=== PATIENT | female | born 1930 | race Two or more races ===

== ENCOUNTER 2017-01-24 17:37 | Inpatient (IN) | payer MEDICARE, BC ==
[2017-01-24] MEDS ORDERED: SODIUM CHLORIDE 0.9% 500 ML IV ONE (19:02)
--- NOTE | 2017-01-24 19:15 | ED ---
General Adult HPI <CristobalViraj - Last Filed: 01/24/17 22:14> - General Source: patient, family Mode of arrival: wheelchair Limitations: no limitations <Shakeel Red - Last Filed: 01/24/17 22:33> - General Chief complaint: Urogenital Stated complaint: UTI, Fever Time Seen by Provider: 01/24/17 18:48 - History of Present Illness Initial comments: 86-year-old female patient presents to emergency department today for increased confusion, weakness, slurred speech, and fever. She was diagnosed with a urinary tract infection on Sunday and started on Macrobid for her urine culture obtained on Sunday. Yesterday patient started having increased confusion, became more weak. Today when her son came home she had chills and a low-grade fever. He has had numerous urinary tract infections in the past and has been treated by infectious disease and a urologist in [place] Dr. Trey Coats. Son states that last infection was in October and patient had been treated with IV Invanz due to resistance. Patient complains of burning with urination, and abdominal pain when she urinates. Patient is alert, and oriented 1 only at this time. Patient does follow simple commands. She does answer questions, but speech is slow. Denies any chest pain, shortness of breath, dizziness, nausea, or vomiting. Denies any back pain, diarrhea, constipation, dark, bloody , or black stools. Patient's son states that she is generally alert and oriented 2, he states that she doesn't usually know the date or time, is unable to manage finances and other consulting nurse. He states her speech is generally slow, but is worse today. (Shakeel Red) - Related Data Home Medications Medication Instructions Recorded Confirmed Acetaminophen-Codeine 300-30mg 1 tab PO DAILY PRN 08/08/16 01/24/17 [Tylenol w/codeine #3] amLODIPine [Norvasc] 2.5 mg PO HS 10/08/16 01/24/17 Nitrofurantoin Monohyd/M-Cryst 100 mg PO Q12HR 01/24/17 01/24/17 [Macrobid] Previous Rx's Medication Instructions Recorded Carbidopa-Levodopa 25-100 mg 1 tab PO TID #60 tab 10/08/16 [Sinemet 25-100 mg] Allergies Allergy/AdvReac Type Severity Reaction Status Date / Time No Known Allergies Allergy Verified 01/24/17 19:31 Review of Systems ROS Other: All systems not noted in ROS Statement are negative. <Viraj Cristobal - Last Filed: 01/24/17 22:14> ROS Other: All systems not noted in ROS Statement are negative. <Shakeel Red - Last Filed: 01/24/17 22:33> ROS Statement: Those systems with pertinent positive or pertinent negative responses have been documented in the HPI. Past Medical History Past Medical History: Hypertension, Musculoskeletal Disorder, Neurologic Disorder, Osteoarthritis (OA) Additional Past Medical History / Comment(s): 06/2016 Fall with R humerous and pelvic fracture-no surgical intervention, PARKINSONS, constipation. History of Any Multi-Drug Resistant Organisms: ESBL Date of last positivie culture/infection: 10/12/16 MDRO Source:: ESBL URINE E.COLI Past Surgical History: Tonsillectomy Additional Past Surgical History / Comment(s): hip surgery (nail put in) HIP FRACTURE, PELVIS FRACTURE Past Anesthesia/Blood Transfusion Reactions: No Reported Reaction Additional Past Anesthesia/Blood Transfusion Reaction / Comment(s): Pt's only surgery was a tonsillectomy-no anesthesia was used. Past Psychological History: No Psychological Hx Reported Additional Psychological History / Comment(s): Pt's adult son resides with her. He assists her with many things. She ambulates with a walker. She has a couple of women that she hired to assist her with bathing. Her son takes her to appts. Smoking Status: Never smoker Past Alcohol Use History: None Reported Past Drug Use History: None Reported - Past Family History Father History Unknown: Yes Additional Family Medical History / Comment(s): Father in his 60's. Mother Family Medical History: Cancer Additional Family Medical History / Comment(s): Mother had breast cancer. She at the age of 79yrs. <Shakeel Red - Last Filed: 01/24/17 22:33> General Exam Limitations: no limitations, altered mental status (Did 1 only, speech is slowed) General appearance: alert, in no apparent distress Head exam: Present: atraumatic, normocephalic, normal inspection Eye exam: Present: normal appearance, PERRL, EOMI. Absent: scleral icterus, conjunctival injection, periorbital swelling ENT exam: Present: normal exam, normal oropharynx, mucous membranes dry, normal external ear exam. Absent: mucous membranes moist Neck exam: Present: normal inspection, full ROM. Absent: tenderness, meningismus, lymphadenopathy Respiratory exam: Present: normal lung sounds bilaterally. Absent: respiratory distress, wheezes, rales, rhonchi, stridor Cardiovascular Exam: Present: normal rhythm, tachycardia, normal heart sounds. Absent: regular rate, irregular rhythm, systolic murmur, diastolic murmur, rubs , gallop, clicks GI/Abdominal exam: Present: soft, normal bowel sounds. Absent: distended, tenderness, guarding, rebound, rigid Extremities exam: Present: normal inspection, full ROM, normal capillary refill. Absent: tenderness, pedal edema, joint swelling, calf tenderness Back exam: Present: normal inspection, CVA tenderness (R), CVA tenderness (L). Absent: full ROM Neurological exam: Present: alert, CN II-XII intact. Absent: oriented X3 ( Oriented 1 only) Psychiatric exam: Present: normal affect Skin exam: Present: warm, dry, intact, normal color. Absent: rash <Shakeel Red - Last Filed: 01/24/17 22:33> Course <Viraj Cristobal - Last Filed: 01/24/17 22:14> <Shakeel Red - Last Filed: 01/24/17 22:33> Vital Signs 01/24/17 01/24/17 01/24/17 17:38 19:28 20:17 Temperature 99.6 F 100.6 F H 97.1 F L Pulse Rate 108 H 98 Respiratory 16 18 Rate Blood Pressure 215/140 170/77 O2 Sat by Pulse 96 95 Oximetry 01/24/17 21:52 Temperature Pulse Rate 91 Respiratory 18 Rate Blood Pressure 175/72 O2 Sat by Pulse 97 Oximetry - Reevaluation(s) Reevaluation #1: 01/24/17 22:14 Patient reevaluated by myself, Dr. Cristobal. Patient resting comfortably in bed. Family states patient has had similar symptoms previously associated with urinary tract infection. Patient does meet sepsis criteria. IV antibiotics have been ordered. Patient has elevated liver enzymes with no acute findings on ultrasound. Gastroenterology will be consult regarding this. 01/24/17 22:15 Patient and family were updated on results and plan. Case was discussed in detail with Dr. gilliam, who will admit for Dr. Vaughan. (Viraj Cristobal) EKG Findings - EKG Comments: EKG Findings:: EKG obtained at 1943 revealed sinus tachycardia with a ventricular rate of 101, OH interval 134, QRS duration 94, QT 362, QTC 469. No ST Elevation or depression. <Shakeel Red - Last Filed: 01/24/17 22:33> Medical Decision Making - Lab Data Result diagrams: 01/24/17 19:35 01/24/17 19:35 <Viraj Cristobal - Last Filed: 01/24/17 22:14> - Lab Data Result diagrams: 01/24/17 19:35 01/24/17 19:35 - Radiology Data Radiology results: report reviewed, image reviewed <Shakeel Red - Last Filed: 01/24/17 22:33> - Medical Decision Making 86-year-old female patient presented to emergency department for altered mental status with a known UTI diagnosed on Sunday. Patient has been taking Macrobid. Lab results revealed elevated liver function tests as well as a urinary tract infection. Abdominal ultrasound is negative for any acute findings. Patient was here in October for a urinary tract that was positive for ESBL E. coli and Invanz was recommended by infectious disease at that time. Patient will be admitted with IV Invanz for UTI and GI consult for further evaluation of transaminitis. Sepsis diagnosed at 5. IV Invanz ordered. (Shakeel Red) - Lab Data Lab Results 01/24/17 01/24/17 01/24/17 Range/Units 19:35 19:35 19:35 WBC 8.4 (3.8-10.6) k/uL RBC 4.19 (3.80-5.40) m/uL Hgb 12.6 (11.4-16.0) gm/dL Hct 38.2 (34.0-46.0) % MCV 91.1 (80.0-100.0) fL MCH 30.0 (25.0-35.0) pg MCHC 33.0 (31.0-37.0) g/dL RDW 14.2 (11.5-15.5) % Plt Count 334 (150-450) k/uL Neutrophils % 88 % Lymphocytes % 4 % Monocytes % 6 % Eosinophils % 1 % Basophils % 0 % Neutrophils # 7.4 (1.3-7.7) k/uL Lymphocytes # 0.3 L (1.0-4.8) k/uL Monocytes # 0.5 (0-1.0) k/uL Eosinophils # 0.0 (0-0.7) k/uL Basophils # 0.0 (0-0.2) k/uL PT (9.0-12.0) sec INR (<1.1) APTT (22.0-30.0) sec Sodium 133 L (137-145) mmol/L Potassium 4.2 (3.5-5.1) mmol/L Chloride 96 L (98-107) mmol/L Carbon Dioxide 27 (22-30) mmol/L Anion Gap 10 mmol/L BUN 14 (7-17) mg/dL Creatinine 0.40 L (0.52-1.04) mg/dL Est GFR (MDRD) Af Amer >60 (>60 ml/min/1.73 sqM) Est GFR (MDRD) Non-Af >60 (>60 ml/min/1.73 sqM) Glucose 131 H (74-99) mg/dL Plasma Lactic Acid Chidi (0.7-2.0) mmol/L Calcium 9.1 (8.4-10.2) mg/dL Total Bilirubin 2.8 H (0.2-1.3) mg/dL AST 1448 H (14-36) U/L ALT 657 H (9-52) U/L Alkaline Phosphatase 297 H (38-126) U/L Ammonia (<30) umol/L Total Creatine Kinase 29 L (30-135) U/L CK-MB (CK-2) 0.5 (0.0-2.4) ng/mL CK-MB (CK-2) Rel Index 1.7 Troponin I 0.013 (0.000-0.034) ng/mL Total Protein 7.3 (6.3-8.2) g/dL Albumin 4.1 (3.5-5.0) g/dL Amylase (30-110) U/L Lipase (23-300) U/L Urine Color Urine Appearance (Clear) Urine pH (5.0-8.0) Ur Specific Reeder (1.001-1.035) Urine Protein (Negative) Urine Glucose (UA) (Negative) Urine Ketones (Negative) Urine Blood (Negative) Urine Nitrite (Negative) Urine Bilirubin (Negative) Urine Urobilinogen (<2.0) mg/dL Ur Leukocyte Esterase (Negative) Urine RBC (0-5) /hpf Urine WBC (0-5) /hpf Urine WBC Clumps (None) /hpf Ur Squamous Epith Cells (0-4) /hpf Urine Mucus (None) /hpf Acetaminophen ug/mL 01/24/17 01/24/17 01/24/17 Range/Units 19:35 19:35 19:35 WBC (3.8-10.6) k/uL RBC (3.80-5.40) m/uL Hgb (11.4-16.0) gm/dL Hct (34.0-46.0) % MCV (80.0-100.0) fL MCH (25.0-35.0) pg MCHC (31.0-37.0) g/dL RDW (11.5-15.5) % Plt Count (150-450) k/uL Neutrophils % % Lymphocytes % % Monocytes % % Eosinophils % % Basophils % % Neutrophils # (1.3-7.7) k/uL Lymphocytes # (1.0-4.8) k/uL Monocytes # (0-1.0) k/uL Eosinophils # (0-0.7) k/uL Basophils # (0-0.2) k/uL PT 10.9 (9.0-12.0) sec INR 1.1 (<1.1) APTT 23.9 (22.0-30.0) sec Sodium (137-145) mmol/L Potassium (3.5-5.1) mmol/L Chloride (98-107) mmol/L Carbon Dioxide (22-30) mmol/L Anion Gap mmol/L BUN (7-17) mg/dL Creatinine (0.52-1.04) mg/dL Est GFR (MDRD) Af Amer (>60 ml/min/1.73 sqM) Est GFR (MDRD) Non-Af (>60 ml/min/1.73 sqM) Glucose (74-99) mg/dL Plasma Lactic Acid Chidi 1.1 (0.7-2.0) mmol/L Calcium (8.4-10.2) mg/dL Total Bilirubin (0.2-1.3) mg/dL AST (14-36) U/L ALT (9-52) U/L Alkaline Phosphatase (38-126) U/L Ammonia (<30) umol/L Total Creatine Kinase (30-135) U/L CK-MB (CK-2) (0.0-2.4) ng/mL CK-MB (CK-2) Rel Index Troponin I (0.000-0.034) ng/mL Total Protein (6.3-8.2) g/dL Albumin (3.5-5.0) g/dL Amylase 41 (30-110) U/L Lipase 86 (23-300) U/L Urine Color Urine Appearance (Clear) Urine pH (5.0-8.0) Ur Specific Reeder (1.001-1.035) Urine Protein (Negative) Urine Glucose (UA) (Negative) Urine Ketones (Negative) Urine Blood (Negative) Urine Nitrite (Negative) Urine Bilirubin (Negative) Urine Urobilinogen (<2.0) mg/dL Ur Leukocyte Esterase (Negative) Urine RBC (0-5) /hpf Urine WBC (0-5) /hpf Urine WBC Clumps (None) /hpf Ur Squamous Epith Cells (0-4) /hpf Urine Mucus (None) /hpf Acetaminophen ug/mL 01/24/17 01/24/17 01/24/17 Range/Units 19:35 20:31 20:40 WBC (3.8-10.6) k/uL RBC (3.80-5.40) m/uL Hgb (11.4-16.0) gm/dL Hct (34.0-46.0) % MCV (80.0-100.0) fL MCH (25.0-35.0) pg MCHC (31.0-37.0) g/dL RDW (11.5-15.5) % Plt Count (150-450) k/uL Neutrophils % % Lymphocytes % % Monocytes % % Eosinophils % % Basophils % % Neutrophils # (1.3-7.7) k/uL Lymphocytes # (1.0-4.8) k/uL Monocytes # (0-1.0) k/uL Eosinophils # (0-0.7) k/uL Basophils # (0-0.2) k/uL PT (9.0-12.0) sec INR (<1.1) APTT (22.0-30.0) sec Sodium (137-145) mmol/L Potassium (3.5-5.1) mmol/L Chloride (98-107) mmol/L Carbon Dioxide (22-30) mmol/L Anion Gap mmol/L BUN (7-17) mg/dL Creatinine (0.52-1.04) mg/dL Est GFR (MDRD) Af Amer (>60 ml/min/1.73 sqM) Est GFR (MDRD) Non-Af (>60 ml/min/1.73 sqM) Glucose (74-99) mg/dL Plasma Lactic Acid Chidi (0.7-2.0) mmol/L Calcium (8.4-10.2) mg/dL Total Bilirubin (0.2-1.3) mg/dL AST (14-36) U/L ALT (9-52) U/L Alkaline Phosphatase (38-126) U/L Ammonia 10 (<30) umol/L Total Creatine Kinase (30-135) U/L CK-MB (CK-2) (0.0-2.4) ng/mL CK-MB (CK-2) Rel Index Troponin I (0.000-0.034) ng/mL Total Protein (6.3-8.2) g/dL Albumin (3.5-5.0) g/dL Amylase (30-110) U/L Lipase (23-300) U/L Urine Color Dark Yellow Urine Appearance Cloudy H (Clear) Urine pH 6.5 (5.0-8.0) Ur Specific Reeder 1.012 (1.001-1.035) Urine Protein 1+ H (Negative) Urine Glucose (UA) Trace H (Negative) Urine Ketones Negative (Negative) Urine Blood Trace H (Negative) Urine Nitrite Negative (Negative) Urine Bilirubin Negative (Negative) Urine Urobilinogen <2.0 (<2.0) mg/dL Ur Leukocyte Esterase Large H (Negative) Urine RBC 18 H (0-5) /hpf Urine WBC >182 H (0-5) /hpf Urine WBC Clumps Moderate H (None) /hpf Ur Squamous Epith Cells <1 (0-4) /hpf Urine Mucus Rare H (None) /hpf Acetaminophen <10.0 ug/mL - Radiology Data Ultrasound of the abdomen has nonspecific findings pop. And no definite acute process. As read by Dr. Triana. Two-view x-ray of the chest reveals no acute cardiopulmonary process as read by Dr. Triana. CT of the brain without contrast reveals no acute intracranial hemorrhage, mass effect, or midline shift. As read by Dr. Grimes. (Shakeel Red) Disposition <Viraj Cristobal - Last Filed: 01/24/17 22:14> Decision Date: 01/24/17 Decision Time: 22:12 <Shakeel Red - Last Filed: 01/24/17 22:33> Clinical Impression: Elevated liver function tests, Urinary tract infection, Altered mental status, Sepsis Disposition: ADMITTED IP TO THIS [facility] Condition: Fair Referrals: Reji Vaughan MD [Primary Care Provider] - 1-2 days
[2017-01-24] MEDS ORDERED: ACETAMINOPHEN IV (For NPO) 1,000 MG in EMPTY BAG 1 BAG IVPB STA (19:27)
[2017-01-24 19:59] LABS: Basophils % (A) 0 %; CH 30.8; CHCM 33.9; Eosinophils % (A) 1 %; HCT 38.2 % (34.0-46.0); HDW 2.42; HGB 12.6 gm/dL (11.4-16.0); Luc # (Auto) 0.11; Luc % (Auto) 1; Lymphocytes # (A) 0.3 k/uL (1.0-4.8); Lymphocytes % (A) 4 %; MCV 91.1 fL (80.0-100.0); Mean Platelet Volume 6.6; Monocytes # (A) 0.5 k/uL (0-1.0); Monocytes % (A) 6 %; Neutrophils # (A) 7.4 k/uL (1.3-7.7); Neutrophils % (A) 88 %; RBC 4.19 m/uL (3.80-5.40); RDW 14.2 % (11.5-15.5); WBC 8.4 k/uL (3.8-10.6); WBC (Perox) 8.79
[2017-01-24 20:10] LABS: ALT 657 U/L (9-52); Alkaline Phosphatase 297 U/L (38-126); Anion Gap 10 mmol/L; Blood Urea Nitrogen 14 mg/dL (7-17); Calcium 9.1 mg/dL (8.4-10.2); Carbon Dioxide 27 mmol/L (22-30); Chloride 96 mmol/L (98-107); Glucose 131 mg/dL (74-99); Non-African American GFR(MDRD) >60 (>60 ml/min/1.73 sqM); Potassium 4.2 mmol/L (3.5-5.1); Sodium 133 mmol/L (137-145); Total Bilirubin 2.8 mg/dL (0.2-1.3); Total Protein 7.3 g/dL (6.3-8.2)
[2017-01-24 20:16] LABS: AST 1448 U/L (14-36)
[2017-01-24 20:23] LABS: INR 1.1 (<1.1); Partial Thromboplastin Time 23.9 sec (22.0-30.0); Prothrombin Time 10.9 sec (9.0-12.0)
[2017-01-24 20:30] LABS: Creatine Kinase MB 0.5 ng/mL (0.0-2.4); Troponin I 0.013 ng/mL (0.000-0.034)
[2017-01-24] MEDS ORDERED: IBUPROFEN 400 MG TAB PO STA (20:35)
[2017-01-24 20:50] LABS: Amylase 41 U/L (30-110)
[2017-01-24 21:03] LABS: Appearance,Urine Cloudy (Clear); Bilirubin,Urine Negative (Negative); Glucose,Urine (UA) Trace (Negative); Ketones,Urine Negative (Negative); Leukocyte Esterase,Urine Large (Negative); Mucus,Urine Rare /hpf; Nitrite,Urine Negative (Negative); PH, Urine 6.5 (5.0-8.0); Particle Count 6271; Protein,Urine 1+ (Negative); RBC,Urine 18 /hpf (0-5); Specific Gravity,Urine 1.012 (1.001-1.035); Squamous Epithelial Cell,Urine <1 /hpf (0-4); UA Billing (MACRO vs. MICRO) MICRO; Urobilinogen,Urine <2.0 mg/dL (<2.0); WBC,Urine >182 /hpf (0-5)
--- NOTE | 2017-01-24 21:10 | CT ---
EXAMINATION TYPE: CT brain wo con DATE OF EXAM: 01/24/2017 9:03 PM COMPARISON: 10/08/2016 HISTORY: Fever and weakness CT DLP: 1081.6 mGycm Automated exposure control for dose reduction was used. FINDINGS: There is no acute intracranial hemorrhage, mass effect, or midline shift identified. The ventricles and sulci are within normal limits in size. The globes are intact and the visualized sinuses are madonna ar. IMPRESSION: No acute intracranial hemorrhage, mass effect, or midline shift is seen.
--- NOTE | 2017-01-24 21:36 | XR ---
EXAMINATION TYPE: XR chest 2V DATE OF EXAM: 01/24/2017 9:32 PM COMPARISON: 10/08/2016 HISTORY: Fever and confusion and pain TECHNIQUE: Frontal and lateral views of the chest are obtained. FINDINGS: There is no focal air space opacity, pleural effusion, or pneumothorax seen. The cardiac silhouette size is within normal limits. The osseous structures are stable in appearance. IMPRESSION: No acute cardiopulmonary process.
--- NOTE | 2017-01-24 21:47 | US ---
EXAMINATION TY PE: US abdomen limited DATE OF EXAM: 01/24/2017 9:22 PM COMPARISON: Ultrasound renals, October 12, 2016 CLINICAL HISTORY: RUQ Pain. Elevated liver enzymes Difficult/limited exam due to overlying bowel gas . Patient unable to take a deep breath in and hold it MEASUREMENTS: Liver Length: 12.1 cm CBD: 0.7 cm Right Kidney: 9.6 x 4.7 x 4.7 cm VISCERAL FINDINGS: Pancreas: Tail obscured by overlying bowel gas. Visualized portions show no mass Liver: Negative as seen. Gallbladder: The gallbladder is not distended, and there are no echogenic mobile foci to suggest cho lelithiasis. The color Doppler images do not show Doppler hyperperfusion to the wall of the gallbladd er. There is no sonographic Ulloa sign. Common bile duct measures 7 mm caliber, within normal limits for this age group. Right Kidney: Hyperechoic renal parenchyma consistent with medical renal disease. No evident hydrone phrosis or mass. IMPRESSION: Nonspecific findings. No definite acute process.
[2017-01-24] MEDS ORDERED: ERTAPENEM 1 GM in SODIUM CHLORIDE 0.9% 50 ML IVPB STA (22:05)
[2017-01-24] MEDS ORDERED: IBUPROFEN 400 MG TAB PO PRN (22:13)
[2017-01-24] MEDS ORDERED: NALOXONE 0.4 MG/ML 1 ML VIAL IV PRN (22:13)
[2017-01-24] MEDS: SODIUM CHLORIDE 0.9% 1,000 ML IV SCH (22:53)
[2017-01-24] MEDS ORDERED: Acetaminophen-Codeine 300-30mg TAB PO PRN (23:28)
[2017-01-24 23:51] VITALS: BMI 22.8
[2017-01-24] MEDS: amLODIPine 2.5 MG TAB PO SCH (23:54)
[2017-01-25] MEDS: NITROFURANTOIN MONOHYD/M-CRYST 100 MG CAP PO SCH ×2 (08:23→21:58)
[2017-01-25 09:21] LABS: Basophils % (A) 0 %; CH 30.5; CHCM 33.1; Eosinophils # (A) 0.2 k/uL (0-0.7); Eosinophils % (A) 4 %; HCT 32.7 % (34.0-46.0); HDW 2.44; HGB 10.7 gm/dL (11.4-16.0); Luc # (Auto) 0.09; Luc % (Auto) 2; Lymphocytes # (A) 0.6 k/uL (1.0-4.8); Lymphocytes % (A) 17 %; MCH 30.2 pg (25.0-35.0); MCHC 32.6 g/dL (31.0-37.0); MCV 92.6 fL (80.0-100.0); Monocytes # (A) 0.3 k/uL (0-1.0); Monocytes % (A) 6 %; Neutrophils # (A) 2.7 k/uL (1.3-7.7); Neutrophils % (A) 70 %; RBC 3.53 m/uL (3.80-5.40); RDW 14.2 % (11.5-15.5); WBC 3.8 k/uL (3.8-10.6); WBC (Perox) 4.15
[2017-01-25 09:36] LABS: ALT 517 U/L (9-52); AST 591 U/L (14-36); Alkaline Phosphatase 211 U/L (38-126); Anion Gap 9 mmol/L; Blood Urea Nitrogen 10 mg/dL (7-17); Calcium 8.4 mg/dL (8.4-10.2); Carbon Dioxide 26 mmol/L (22-30); Chloride 103 mmol/L (98-107); Glucose 84 mg/dL (74-99); Non-African American GFR(MDRD) >60 (>60 ml/min/1.73 sqM); Potassium 3.6 mmol/L (3.5-5.1); Sodium 138 mmol/L (137-145); Total Bilirubin 1.4 mg/dL (0.2-1.3); Total Protein 5.8 g/dL (6.3-8.2)
[2017-01-25 10:18] LABS: Hepatitis B Core IgM Index 0.06
[2017-01-25 10:30] LABS: Hepatitis C Virus IgG Index 0.12
[2017-01-25 10:31] LABS: Hepatitis C Virus IgG Ab Negative (Negative)
--- NOTE | 2017-01-25 12:00 | P.CONS ---
History of Present Illness - Reason for Consult Consult date: 01/25/17 Elevated liver enzymes Requesting physician: Kolby Jason - History of Present Illness 86-year-old female with a history of hypertension, chronic UTI ESBL, Parkinson's , hypertension, and degenerative joint disease. Presents with mental status changes and possible recurrent UTI. History obtained from patient's family at bedside. She was hospitalized in September 2016 with an UTI and discharged with PICC line and 2 weeks of Invanz therapy. Earlier this week she was placed on Macrobid for suspected UTI. Upon admission liver enzymes were elevated; total bilirubin 2.8. AST 1440. ALT 657. Alkaline phosphatase 297. This morning liver enzymes are improving total bilirubin 1.4. AST 591. ALT 517. Alkaline phosphatase 211. Liver enzymes were normal in September 2016. According to the [id number] no changes in medications with the exception of antibiotic. She received a dose of Invanz in the emergency room last night. Denies abdominal pain. No history of hepatitis or jaundice. Hepatitis panel negative. No documentation of hypotension. Abdominal ultrasound nonspecific findings. Liver length 12.1 cm. CBD 0.7 cm. Review of Systems Obtained from medical records and patient's family Constitutional: Denies fever, chills, sweats, weight gain, or loss. HEENT: Negative for migraines, blurred vision or loss, earaches, drainage, tinnitus, oral mucosal lesions, dysphagia, or odynophagia. CARDIAC: Hypertension. Negative for chest pain, arrhythmias, or palpitation. RESPIRATORY: Negative for shortness of breath, hemoptysis, cough, or sputum production. GI: See HPI for pertinent findings. : Chronic UTI. Negative for hematuria, urgency, frequency, polyuria, or dysuria. GYNc: Denies possibility of . Negative vaginal discharge. MUSCULOSKELETAL: Parkinson's. Degenerative joint disease. NEUROLOGIC: Negative for stroke or TIA. ENDOCRINE: Negative for thyroid problems. SKIN: Negative for rash or itching. PSYCHIATRIC: Negative history for depression and anxiety Past Medical History Past Medical History: Hypertension, Musculoskeletal Disorder, Neurologic Disorder, Osteoarthritis (OA) Additional Past Medical History / Comment(s): 06/2016 Fall with R humerous and pelvic fracture-no surgical intervention, PARKINSONS, constipation. History of Any Multi-Drug Resistant Organisms: ESBL Year Discovered:: 10/12/16 MDRO Source:: ESBL URINE E.COLI Past Surgical History: Tonsillectomy Additional Past Surgical History / Comment(s): hip surgery (nail put in) HIP FRACTURE, PELVIS FRACTURE Past Anesthesia/Blood Transfusion Reactions: No Reported Reaction Additional Past Anesthesia/Blood Transfusion Reaction / Comm: Pt's only surgery was a tonsillectomy-no anesthesia was used. Past Psychological History: No Psychological Hx Reported Additional Psychological History / Comment(s): Pt's adult son resides with her. He assists her with many things. She ambulates with a walker. She has a couple of women that she hired to assist her with bathing. Her son takes her to appPWA. Smoking Status: Never smoker Past Alcohol Use History: None Reported Past Drug Use History: None Reported - Past Family History Father History Unknown: Yes Additional Family Medical History / Comment(s): Father in his 60's. Mother Family Medical History: Cancer Additional Family Medical History / Comment(s): Mother had breast cancer. She at the age of 79yrs. Medications and Allergies Home Medications Medication Instructions Recorded Confirmed Type Acetaminophen-Codeine 300-30mg 1 tab PO DAILY PRN 08/08/16 01/24/17 History [Tylenol w/codeine #3] amLODIPine [Norvasc] 2.5 mg PO HS 10/08/16 01/24/17 History Nitrofurantoin Monohyd/M-Cryst 100 mg PO Q12HR 01/24/17 01/24/17 History [Macrobid] Allergies Allergy/AdvReac Type Severity Reaction Status Date / Time No Known Allergies Allergy Verified 01/24/17 19:31 Physical Exam Vitals: Vital Signs Temp Pulse Pulse Resp BP BP Pulse Ox 01/25/17 07:52 95.9 F L 64 18 127/60 95 01/25/17 04:30 97.6 F 64 20 136/60 96 01/25/17 00:00 16 01/24/17 23:00 97.7 F 78 16 173/74 97 01/24/17 22:54 98.1 F 75 18 136/58 95 Intake and Output 01/24/17 01/25/17 01/25/17 22:59 06:59 14:59 Other: Weight 51.256 kg General appearance: The patient is alert, oriented, in no acute distress. HET: Head is normocephalic and atraumatic. Pupils are equal and reactive. Oropharynx is clear without lesions. Neck: Supple without lymphadenopathy. Trachea midline. Heart: S1 S2. Regular rate and rhythm. Lungs: No crackles or wheezes are heard. Abdomen: Soft, nontender, nondistended with bowel sounds. No peritoneal signs. No palpable organomegaly or masses. Extremities: Normal skin color and turgor. No cyanosis, rash, ulceration, clubbing, or edema. Radial and pedal pulses are 2/4 bilaterally. Neurological: No focal deficits. Strength and sensation are grossly intact. Results CBC & Chem 7: 01/25/17 08:36 01/25/17 08:36 Labs: Abnormal Lab Results - Last 24 Hours (Table) 01/25/17 01/25/17 Range/Units 08:36 08:36 RBC 3.53 L (3.80-5.40) m/uL Hgb 10.7 L (11.4-16.0) gm/dL Hct 32.7 L (34.0-46.0) % Lymphocytes # 0.6 L (1.0-4.8) k/uL Creatinine 0.42 L (0.52-1.04) mg/dL Total Bilirubin 1.4 H (0.2-1.3) mg/dL AST 591 H (14-36) U/L ALT 517 H (9-52) U/L Alkaline Phosphatase 211 H (38-126) U/L Total Protein 5.8 L (6.3-8.2) g/dL Albumin 3.0 L (3.5-5.0) g/dL US - abdomen: report reviewed (Reviewed by Dr. Martinez) Assessment and Plan (1) Hepatocellular injury Narrative/Plan: Suspect possible medication related. Liver enzymes improving. Status: Acute Plan: 1. Liver enzymes improving therefore will continue with close observation. [id number] was asked to provide history of recent medications including antibiotics for review. 2. Avoid hepatotoxic medications. 3. Diet as tolerated. 4. No further workup at this time. We'll follow closely with you. Thank you for this kind referral and the opportunity to participate in the care of your patient. This consultation was discussed with Dr. Martinez. The impression and plan of care have been directed as dictated.
[2017-01-25] MEDS: SODIUM CHLORIDE 0.9% 1,000 ML IV SCH ×2 (14:43→23:02)
--- NOTE | 2017-01-25 17:45 | HP ---
DATE OF ADMISSION: 01/25/2017 PRESENTING COMPLAINT: Weak, tired. HISTORY OF PRESENTING COMPLAINT: This is an 86-year-old patient of Dr. Vaughan with rather extensive medical history. History is obtained with a caregiver at the bedside. Chronic stable conditions include chronic idiopathic Parkinson's disease, hypertension, osteoarthritis, dementia with Parkinson's disease. The patient had multiple UTIs in the past and received different course of antibiotics off and on for about at least 8 to 9 months. ( ) with infection. The patient a bit glassy eyed, less responsive. The patient's appetite is fair, able to walk slowly with some assistance, tired. Like stated, most of the history is obtained by the caregiver at the bedside. REVIEW OF SYSTEMS: CONSTITUTIONAL: Tired. HEENT: None. RESPIRATORY: None. CARDIOVASCULAR: None. GASTROINTESTINAL: None. GENITOURINARY: Urinary frequency. DERMATOLOGICAL: None. HEMATOLOGICAL: None. LYMPHATIC: None. PSYCHIATRY: Forgetful. NEUROLOGICAL: As above. Past history of hypertension, osteoarthritis, Parkinson's, use a walker, right humerus fracture, recurrent UTIs. PAST SURGICAL HISTORY: Tonsillectomy. SOCIAL HISTORY: Lives with her son. No smoking. No alcohol. FAMILY HISTORY: Cancer, type unknown. HOME MEDICATIONS: 1. Norvasc 2.5 mg q.h.s. 2. Macrobid 100 mg p.o. q.12. 3. Sinemet 20/100, 1 tablet p.o. t.i.d. 4. Tylenol 3, 1 tablet p.o. daily p.r.n. ALLERGIES: None. On examination vital signs on presentation: Temperature 100.6, pulse 98, respirations 18, blood pressure 117/77, pulse ox 95% on room air. GENERAL APPEARANCE: Average built, sitting up in chair, tired -appearing. EYES: Pupils equal. Conjunctivae normal. HEENT: Oral cavity normal. NECK: JVD not raised. Mass not palpable. RESPIRATORY: Effort normal. Lungs are clear. CARDIOVASCULAR: First and second sounds normal. No edema. ABDOMEN: Soft, nontender. Liver and spleen not palpable. LYMPHATIC: No lymph nodes in neck or axillae. PSYCHIATRY: Mood and affect low. Patient only able to answer simple questions. NEUROLOGICAL: Pupils equal. Cranial nerves grossly intact. Power and sensation, patient is slow, patient has bradykinesia. INVESTIGATIONS: White count 8.4, hemoglobin 12.6. Potassium 4.2, BUN 14, creatinine 0.40, AST is 1448, ALT 657, alk phos 297; repeat down to 591 and 517. UA positive for leukocyte esterase and WBC. CT scan of the abdomen, unremarkable ASSESSMENT: 1. Acute hepatitis. No obvious cause noted at this point. Patient's abdominal examination rather benign. The patient does take Tylenol 3 but LFTs have already started to come down. There is no nausea or vomiting; hence, makes acute hepatitis A less likely. Though this could be drug-induced. 2. Acute urinary tract infection, recurrent with multiple episodes in the past. 3. Chronic idiopathic Parkinson disease. 4. Essential hypertension. 5. Primary osteoarthritis of multiple joints. 6. Dementia associated with Parkinson disease, chronic. PLAN: Will resume patient's Sinemet. Patient is known to Dr. Ortiz from [place] and will consult him for the same. Hold off patient's Tylenol 3. LFTs have already started to come down. Like stated, this could be drug-induced, just repeat the same. Given her age, overall prognosis is guarded.
[2017-01-25] MEDS: CARBIDOPA-LEVODOPA 25-100 MG 1 EACH TAB PO SCH ×2 (18:50→21:58)
[2017-01-25] MEDS: amLODIPine 2.5 MG TAB PO SCH (21:58)
[2017-01-26 00:04] LABS: Appearance,Urine Clear (Clear); Bilirubin,Urine Negative (Negative); Glucose,Urine (UA) Negative (Negative); Ketones,Urine Negative (Negative); Leukocyte Esterase,Urine Negative (Negative); Mucus,Urine Rare /hpf; Nitrite,Urine Negative (Negative); Particle Count 287; Protein,Urine Negative (Negative); RBC,Urine 8 /hpf (0-5); Specific Gravity,Urine 1.006 (1.001-1.035); UA Billing (MACRO vs. MICRO) MICRO; Urobilinogen,Urine <2.0 mg/dL (<2.0); WBC,Urine <1 /hpf (0-5)
[2017-01-26] MEDS: SODIUM CHLORIDE 0.9% 1,000 ML IV SCH ×2 (02:30→15:43)
[2017-01-26 08:05] LABS: ALT 99 U/L (9-52); AST 196 U/L (14-36); Alkaline Phosphatase 225 U/L (38-126); Anion Gap 13 mmol/L; Blood Urea Nitrogen 5 mg/dL (7-17); Calcium 8.5 mg/dL (8.4-10.2); Carbon Dioxide 21 mmol/L (22-30); Chloride 101 mmol/L (98-107); Glucose 87 mg/dL (74-99); Non-African American GFR(MDRD) >60 (>60 ml/min/1.73 sqM); Potassium 3.7 mmol/L (3.5-5.1); Sodium 135 mmol/L (137-145); Total Bilirubin 0.9 mg/dL (0.2-1.3); Total Protein 6.4 g/dL (6.3-8.2)
[2017-01-26] MEDS: CARBIDOPA-LEVODOPA 25-100 MG 1 EACH TAB PO SCH ×3 (08:33→21:24)
[2017-01-26] MEDS: NITROFURANTOIN MONOHYD/M-CRYST 100 MG CAP PO SCH ×2 (08:33→21:24)
--- NOTE | 2017-01-26 12:23 | CDI ---
In responding to this query, please exercise your independent professional judgment. The [facility] Coding Staff and Clinical Documentation Specialists appreciate your assistance in clarifying documentation, maintaining compliance with coding guidelines, accurately documenting patients condition and capturing severity of illness. The fact that a question is asked does not imply that any particular answer is desired or expected. Communication forms are a method of clarifying documentation and are not made part of the Legal Health Record. Thank you in advance for your clarification. Last Revision, January 2016 Severino Eric [address] [facility] [place] [address] Documentation Clarification Form Date: 01/26/2017 12:09:00 PM From: Rody Meneses Admit Date: 01/24/2017 10:16:00 PM Patient Name: Destiny Dubois Visit Number: [id number] Dr. Kolby Jason Patient presents to ED for 'increased confusion, weakness, slurred speech, and fever'. Patient history/risk factors: Recurrent UTI Started on Macrobid on Sunday Acute hepatitis per H&P Tylenol 3 Dementia with Parkinson Disease Clinical Indicators: Labs: na 133, bili 2.8, ast 1448, alt 657, alk phos 297, ua: cloudy, large leuks, wbc >182 X Ray: negative CT brain: negative Treatment: IV fluids with bolus administered IV Invanz x 1 PO Macrobid In your professional opinion, please clarify the etiology of the altered mental status, if known. Worsening Dementia Encephalopathy (specify Type and Underlying Medical Illness) Other condition (please specify) Unable to determine Please document in your progress notes and discharge summary in order to capture severity of illness and risk of mortality. Include clinical findings that support your diagnosis. FYI: Press F11 to launch patient chart. Place X here if this finding has no clinical significance, is not applicable or if you are not able to provide any additional documentation. MTDD
--- NOTE | 2017-01-26 13:50 | P.PN ---
Subjective Principal diagnosis: Elevated liver enzymes 86-year-old female reevaluated in regards of the liver enzymes. Liver enzymes are much improved. Caregiver at bedside and provided additional medications patient receiving xuba-yil-wsfkdgk herbal and vitamin supplements including vinegar water in addition to recent antibiotics and prescribed maintenance medications. Objective - Vital Signs Vital signs: Vital Signs Temp 96.2 F L 01/26/17 07:34 Pulse 79 01/26/17 07:34 Resp 18 01/26/17 07:34 BP 166/70 01/26/17 07:34 Pulse Ox 95 01/26/17 07:34 Intake & Output 01/25/17 01/26/17 01/26/17 18:59 06:59 18:59 Intake Total 800 500 Output Total 1400 250 Balance 800 -900 -250 Intake: IV 500 Sodium Chloride 0.9% 1, 500 000 ml @ 100 mls/hr IV . Q10H MELE Rx#:[id number] Intake, IV Titration 800 Amount Sodium Chloride 0.9% 1, 800 000 ml @ 100 mls/hr IV . Q10H MELE Rx#:[id number] Output: Urine 1400 250 Straight 1400 Other: Voiding Method Toilet Toilet Toilet Diaper Diaper Diaper Incontinent Incontinent Incontinent # Voids 1 5 # Bowel Movements 1 - Exam General appearance: The patient is alert, oriented, in no acute distress. HET: Head is normocephalic and atraumatic. Pupils are equal and reactive. Oropharynx is clear without lesions. Neck: Supple without lymphadenopathy. Trachea midline. Heart: S1 S2. Regular rate and rhythm. Lungs: No crackles or wheezes are heard. Abdomen: Soft, nontender, nondistended with bowel sounds. No peritoneal signs. No palpable organomegaly or masses. Extremities: Normal skin color and turgor. No cyanosis, rash, ulceration, clubbing, or edema. Radial and pedal pulses are 2/4 bilaterally. Neurological: No focal deficits. Strength and sensation are grossly in - Labs CBC & Chem 7: 01/25/17 08:36 01/26/17 07:09 Labs: Abnormal Lab Results - Last 24 Hours (Table) 01/25/17 01/26/17 Range/Units 23:15 07:09 Sodium 135 L (137-145) mmol/L Carbon Dioxide 21 L (22-30) mmol/L BUN 5 L (7-17) mg/dL Creatinine 0.38 L (0.52-1.04) mg/dL AST 196 H (14-36) U/L ALT 99 H (9-52) U/L Alkaline Phosphatase 225 H (38-126) U/L Urine Blood Trace H (Negative) Urine RBC 8 H (0-5) /hpf Urine Mucus Rare H (None) /hpf Microbiology - Last 24 Hours (Table) 01/25/17 23:15 Urine Culture - Preliminary Urine,Catheterized Assessment and Plan (1) Hepatocellular injury Narrative/Plan: Suspect possible medication related. Liver enzymes improving. Status: Acute Plan: 1. It's possible that lpck-hop-mjsyxee herbal vitamin supplements vinegar water may have played a role in patient's elevated liver enzymes. Considering liver enzymes are improving and she is not receiving any supplements makes it more likely the cause of her acute hepatocellular injury. Family was advised to hold off on qpvx-lmr-lgackcg herbal and vitamin supplements into continue with prescribed medications only. 2. No further workup at this time considering liver enzymes are improving. Assessment and plan a care discussed with Dr. Vaughn
--- NOTE | 2017-01-26 16:31 | CONS ---
DATE OF CONSULTATION: 01/26/2017 REASON FOR CONSULTATION: Fever, UTI. HISTORY OF PRESENT ILLNESS: The patient is an 86-year-old female well known to my service from previous episodes of ESBL E. coli urinary tract infection. For that, the patient did have a PICC with multiple courses of intravenous antibiotics. Last treatment was back in October 2016. Patient has been doing well; however, she was brought into the [facility] ER on 01/24/2017 with chief complaints of increased confusion, weakness, slurred speech and a fever. Apparently the patient has been diagnosed as an outpatient with a urinary tract infection which has been treated with Macrobid. The patient started having increasing confusion, becoming more weak, had some chills and the patient was brought into the [facility] ER, where the patient has been evaluated by the ER physician. The patient did have a CT of the brain that was negative for any bleed. On chest x-ray, no acute cardiopulmonary process. The patient did have a low-grade fever of 100.6 in the ER and the initial UA was positive for large leukocyte esterase WBC. Her white count normal at 8.4. The patient received a dose of Invanz in the ER and subsequently has been admitted to the hospital and on oral Macrobid. The patient also noticed to have elevated liver enzymes with a bilirubin of 2.8, AST of 1448, alt was 657, alkaline phosphatase was elevated for which the patient did have an ultrasound of the abdomen which showed nonspecific and no definite acute process. The patient has been evaluated by and currently being treated conservatively. Liver enzymes are showing a downward trend. The patient was evaluated early this afternoon, where the patient had been eating her lunch. She seemed to more awake and alert, but the caregiver at the bedside. The patient denies having any chest pain or shortness of breath. No cough or abdominal pain. No nausea, vomiting or diarrhea. We did obtain a straight cath last night and that urine is significantly clear. REVIEW OF SYSTEMS: CONSTITUTIONAL: Positive for weakness and low-grade fever. EYES: No complaint. ENT: No complaint. RESPIRATORY: No complaint. CARDIOVASCULAR: No complaint. GENITOURINARY: As per HPI. GASTROINTESTINAL: No complaint. MUSCULOSKELETAL: No complaint. INTEGUMENTARY: No complaint. PSYCHOLOGIC: No complaint. ENDOCRINE: No complaint. NEUROLOGICAL: As per HPI. 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 PAST SURGICAL HISTORY: Tonsillectomy, hip surgery. SOCIAL HISTORY: No history of smoking, drinking or drug use. FAMILY HISTORY: Mother with history of breast cancer. ALLERGIES: No known drug allergies. Medications currently include the patient is on: 1. Tylenol with codeine. 2. Norvasc. 3. Sinemet. 4. Macrobid. 6. IV fluid. On examination, her blood pressure is 156/70 with a pulse of 79, temperature 96.2. She is 95% on room air. General description is an elderly female, up in the bed in no distress. No tachypnea or accessory muscle of respiration use. HEENT shows slight pallor. No scleral icterus. Oral mucous membranes dry. NECK: Trachea central. No thyromegaly. LUNGS: Unlabored breathing. Clear to auscultation anteriorly. HEART: S1, S2. Regular rate and rhythm. ABDOMEN: Soft. No tenderness. EXTREMITIES: No edema of feet. SKIN Exam : no rashes , no masses palpable. NEUROLOGICAL: The patient is awake, alert, oriented x2. Mood and affect normal. LABS: Hemoglobin is 10.7, white count 3.8 with a BUN of 5, creatinine 0.32. Electrolytes have been normal. Liver enzymes are down with a bilirubin of 0.9, AST of 196, AST is 99. Hepatitis serologies have been negative. Repeat urine obtained yesterday is clear. Culture so far pending. DIAGNOSTIC IMPRESSION AND PLAN: Patient admitted to hospital with confusion and weakness with significantly elevated blood pressure in patient who did have history of recurrent urinary tract infections. She did have a positive urinalysis on admission, did receive dose of Invanz; however, urinalysis done last night with a straight catheter is significantly clear. Clinically doubt significant deep urinary tract infection responsible for her symptomatology. Patient did have a low-grade fever, elevated liver enzymes, question of possible viral and showing a downward trend with the symptomatic treatment. Hepatitis serologies negative. PLAN: 1. Will keep the patient on Macrobid at this time while waiting for the repeat culture to finalize. 2. Continue with supportive treatment . Thank you for this consultation. Will follow this patient along with you. VALERY
--- NOTE | 2017-01-26 18:21 | PN ---
DATE OF SERVICE: 01/26/2017 PRESENTING COMPLAINT: Weak and tired. INTERVAL HISTORY: This is a patient with multiple problems, recurrent UTI; has another caregiver at the bedside. Presented with yet another UTI. Patient is weak and tired, not eating much. Sometimes confused. Review of systems attempted for constitutional, cardiovascular, GI, pulmonary; relevant findings as above. Current medications include Macrobid and IV fluids. On examination, temperature 96.2, pulse 79, respiration 18, blood pressure 166/70, pulse ox 95% on room air. GENERAL APPEARANCE: Sitting up, tired-appearing. EYES: Pupils equal. Conjunctivae normal. NECK: JVD not raised. Mass not palpable. RESPIRATORY: Effort normal. Lungs are clear. CARDIOVASCULAR: First and second sounds normal. No edema. ABDOMEN: Soft, non-tender. Liver and spleen not palpable. PSYCHIATRY: Awake. Can answer some simple questions. INVESTIGATIONS: Potassium 3.7. BUN 5, creatinine 0.38. AST 196, ALT 99. Urine cultures are negative until now. ASSESSMENT: 1. Acute hepatitis, probably drug-induced. The patient was on Tylenol #3. Continues to come down. 2. Acute urinary tract infection, recurrent, with multiple episodes in the past. 3. Chronic idiopathic Parkinson's disease causing Parkinson's disease associated dementia. 4. Acute metabolic encephalopathy from underlying urinary tract infection. 5. Essential hypertension. 6. Primary osteoarthritis of multiple joints, primary type. PLAN: Continue current medication and treatment plan. Overall prognosis is guarded. LFTs are nicely coming down. Will await further input from Dr. Ortiz from Infectious Disease. Prognosis remains guarded. Patient is definitely slow to respond.
[2017-01-26] MEDS: TAMSULOSIN 0.4 MG CAP.ER.24H PO SCH (21:24)
[2017-01-26] MEDS: amLODIPine 2.5 MG TAB PO SCH (21:24)
[2017-01-27] MEDS: CARBIDOPA-LEVODOPA 25-100 MG 1 EACH TAB PO SCH ×3 (10:25→22:53)
[2017-01-27] MEDS: NITROFURANTOIN MONOHYD/M-CRYST 100 MG CAP PO SCH ×2 (10:25→20:22)
[2017-01-27] MEDS: SODIUM CHLORIDE 0.9% 1,000 ML IV SCH ×2 (10:26→10:30)
--- NOTE | 2017-01-27 16:08 | PN ---
DATE OF SERVICE: 01/27/2017 REASON FOR FOLLOW-UP: 1. Urinary tract infection. 2. Elevated liver enzymes. INTERVAL HISTORY: The patient is afebrile. She is more awake, alert. She is breathing comfortably. Denies significant chest pain, shortness of breath. No cough. No abdominal pain. On examination, blood pressure 159/87, pulse 87, temperature 96.6. She is 97% on room air. General description is an elderly female, up in bed in no distress. RESPIRATORY SYSTEM: Unlabored breathing. Clear to auscultation anteriorly. HEART: S1, S2. Regular rate and rhythm. ABDOMEN: Soft, no tenderness. LABS: Urine culture x2 has been negative. Blood culture negative. Liver enzymes have improved. DIAGNOSTIC IMPRESSION AND PLAN: Patient admitted to the hospital with weakness, lethargy and elevated blood pressure. Did have elevated liver enzymes more likely secondary to supplements that she takes as an outpatient that should be discontinued. Concern for possible urinary tract infection. Urine culture x2 has been negative. No need for any further systemic antibiotic. Family present at beside. Their questions were answered.
[2017-01-27] MEDS: amLODIPine 2.5 MG TAB PO SCH (20:24)
[2017-01-27] MEDS: TAMSULOSIN 0.4 MG CAP.ER.24H PO SCH (20:24)
[2017-01-28] MEDS: SODIUM CHLORIDE 0.9% 1,000 ML IV SCH ×3 (07:42→16:33)
[2017-01-28] MEDS: NITROFURANTOIN MONOHYD/M-CRYST 100 MG CAP PO SCH ×2 (08:19→21:49)
[2017-01-28] MEDS: CARBIDOPA-LEVODOPA 25-100 MG 1 EACH TAB PO SCH ×3 (08:19→21:49)
[2017-01-28 08:31] LABS: ALT 140 U/L (9-52); AST 34 U/L (14-36); Alkaline Phosphatase 136 U/L (38-126); Anion Gap 6 mmol/L; Blood Urea Nitrogen 6 mg/dL (7-17); Calcium 8.2 mg/dL (8.4-10.2); Carbon Dioxide 24 mmol/L (22-30); Chloride 107 mmol/L (98-107); Glucose 97 mg/dL (74-99); Non-African American GFR(MDRD) >60 (>60 ml/min/1.73 sqM); Sodium 137 mmol/L (137-145); Total Bilirubin 0.7 mg/dL (0.2-1.3); Total Protein 5.4 g/dL (6.3-8.2)
[2017-01-28 08:39] LABS: Basophils % (A) 0 %; CH 30.9; CHCM 33.8; Eosinophils # (A) 0.1 k/uL (0-0.7); Eosinophils % (A) 2 %; HCT 30.7 % (34.0-46.0); HDW 2.68; HGB 9.8 gm/dL (11.4-16.0); Luc # (Auto) 0.13; Luc % (Auto) 2; Lymphocytes # (A) 0.8 k/uL (1.0-4.8); Lymphocytes % (A) 15 %; MCH 29.1 pg (25.0-35.0); MCHC 31.7 g/dL (31.0-37.0); MCV 91.7 fL (80.0-100.0); Mean Platelet Volume 7.7; Monocytes # (A) 0.3 k/uL (0-1.0); Monocytes % (A) 6 %; Neutrophils % (A) 75 %; RBC 3.35 m/uL (3.80-5.40); RDW 13.9 % (11.5-15.5); WBC 5.4 k/uL (3.8-10.6); WBC (Perox) 5.91
[2017-01-28] MEDS ORDERED: Potassium Replacement Protocol 1 EACH MISC MISCELLANE PRN (11:11)
[2017-01-28] MEDS: POTASSIUM CHLORIDE 10 MEQ, LIDOCAINE 2% INJ 10 MG in SODIUM CHLORIDE 0.9% 100 ML IV SCH ×2 (12:00→13:16)
--- NOTE | 2017-01-28 16:42 | PN ---
DATE OF SERVICE: 01/27/2017 PRESENTING COMPLAINT: Weakness and tiredness. INTERVAL HISTORY: Ms. Dubois is an 78-year-old female with past medical history of hypertension, osteoarthritis, coming in for recurrent urinary tract infection. The patient has been feeling weak and tired and not eating much and at times confused, so brought into the hospital for further evaluation. Patient was also found to have elevated liver enzymes and also being monitored for it currently. REVIEW OF SYSTEMS: The patient seems to be confused at times. She is a poor historian but she denies having any fevers, chills, or rigors. No chest pain. No difficulty in breathing. No abdominal pain, nausea, vomiting, or diarrhea. She denies having any hematuria or dysuria. Patient's medications have been reviewed. On examination, patient's vital signs temperature 97.3, heart rate 76, respiratory rate 18, blood pressure 162/80, saturating at 95% on room air. GENERAL EXAMINATION: Patient is a tiny old lady sitting up in a chair beside her bed, appears to be in no acute distress. Pupils are equal, and reactive to light. No icterus. NECK: No JVD. RESPIRATORY: Bilateral breath sounds are positive. CARDIOVASCULAR: S1, S2 heard. ABDOMEN: Soft, nontender. EXTREMITIES: Skin is fragile on her lower extremities. No edema. No cyanosis. 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 Can answer simple questions. Patient's labs: White count of 3.8, hemoglobin is 10.7 from 01/25. Electrolytes from 01/26: Sodium 135, potassium 3.7, chloride 101, bicarb 21, BUN 5, creatinine 0.38. Urine culture, no growth from final culture. ASSESSMENT AND PLAN: 1. Acute hepatitis probably due to drugs as the patient has been taking Tylenol and also OTC herbal multivitamins. Liver enzymes are trending down. Will repeat them for tomorrow. 2. Recurrent urinary tract infection. Did receive a dose of Invanz and completed treatment with Microbid. ID on board and currently suggested no need for further antibiotics. 3. Chronic idiopathic Parkinson's disease with dementia. 4. Essential hypertension. 5. Osteoarthritis of multiple joints primary type. PLAN: Plan is to continue monitoring the patient's LFTs. Patient did complete her antibiotics. Will continue the current medication regimen. Overall prognosis is poor. She is a NO CODE. Further recommendations to follow depending on the progress of the patient. MTDD
[2017-01-28] MEDS: TAMSULOSIN 0.4 MG CAP.ER.24H PO SCH (21:49)
[2017-01-28] MEDS: amLODIPine 2.5 MG TAB PO SCH (21:49)
[2017-01-29] MEDS: SODIUM CHLORIDE 0.9% 1,000 ML IV SCH ×2 (05:24→14:07)
[2017-01-29 08:25] VITALS: BP 196/84; RESP 18
--- NOTE | 2017-01-29 08:51 | PN ---
DATE OF SERVICE: 01/28/2017 CHIEF COMPLAINT: Weakness and tiredness. INTERVAL HISTORY: Ms. Dubois is an 86-year-old female with a past medical history of hypertension, dementia, Parkinson's disease, admitted to the hospital with urinary tract infection. Patient was weak and tired and not eating much and was confused. Patient was also having elevated liver enzymes at the time of admission. The patient takes multiple herbal medications [id number]-[id number]. Her family usually takes care of her at home. Today the patient is lying in bed. She states that pain in her feet and legs. As per the nursing staff report, the patient has not been getting any pain medications. REVIEW OF SYSTEMS: Could not be done as and the patient has dementia and is confused at times. Medications have been reviewed. On examination, vital signs are temperature 97.8, heart rate 78, respiratory rate 18, blood pressure 150/67, saturating at 97% on room air. GENERAL APPEARANCE: A thin fragile female, lying in her bed, appears to be in no acute distress. She is tearful because of pain in her feet and legs. EYES: Pupils, round, and reactive to light. NECK: No JVD. RESPIRATORY: Lungs are clear. CARDIOVASCULAR: S1, S2 heard. ABDOMEN: Soft, nontender. Bowel sounds positive. 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 Follows simple commands. LABS: White count of 5.4, hemoglobin is 9.8, platelets of 305. Sodium 137, potassium 3, chloride 107, bicarb 24, BUN 6, creatinine 0.40. Albumin is 2.8. ASSESSMENT AND PLAN: 1. Acute hepatitis, mostly drug-induced, the patient takes multiple zrxy-thz-cjodjig herbal supplements. They have been discontinued. Tylenol is also discontinued. Her liver enzymes have been slowly trending down. 2. Acute urinary tract infection, recurrent, multiple episodes in the past but she did complete the dose of her antibiotic. Dr. Ortiz of Infectious Disease is on board and following the patient. 3. Chronic idiopathic Parkinson's disease causing Parkinson disease-associated dementia. 4. Acute metabolic encephalopathy that seems to be resolving, most likely secondary to electrolyte imbalance. 5. Essential hypertension. 6. Osteoarthritis of multiple joints. 7. Hypokalemia. PLAN: The plan is to continue the patient on current medication regimen. Motrin p.r.n. for bilateral lower extremity pain. Patient's LFTs are coming down, avoid hepatotoxins. Overall prognosis is guarded. As per discussion with the son, he wants to take her home as he is able to provide 24/7 care for her. The patient is a NO CODE. MTDD
--- NOTE | 2017-01-29 09:42 | PN ---
DATE OF SERVICE: 01/28/2017 Reason for follow-up urinary tract infection and elevated liver enzymes. INTERVAL HISTORY: The patient is afebrile. She is more awake, alert. She is breathing comfortably. Denies significant chest pain, shortness of breath or cough. No abdominal pain. No diarrhea. On examination, blood pressure is 150/57 with a pulse of 78, temperature 97.8. She is 97% on room air. General description is an elderly female up in the chair in no distress. RESPIRATORY SYSTEM: Unlabored breathing. Clear to auscultation anteriorly. HEART: S1, S2. Regular rate and rhythm. ABDOMEN: Soft, no tenderness. LABS: Hemoglobin is 9.8, white count 5.4 with a BUN of 6, creatinine 0.4. DIAGNOSTIC IMPRESSION AND PLAN: 1. Patient admitted to the hospital with fever, did have elevated liver enzymes, question of possible drug related elevated liver enzymes, has improved. 2. Patient with a positive urinalysis with concern for recurrent urinary tract infection, urine culture has been negative. She is currently on Macrobid which will continue for another day or 2 and that can be discontinued. Son was present at the bedside and has been advised to excessive Tylenol or zwph-dok-zcknqdp herbal supplement intake and that may have contributed to some of the elevated liver enzymes.
[2017-01-29 10:20] LABS: ALT 59 U/L (9-52); AST 25 U/L (14-36); Alkaline Phosphatase 117 U/L (38-126); Anion Gap 10 mmol/L; Blood Urea Nitrogen 6 mg/dL (7-17); Calcium 8.2 mg/dL (8.4-10.2); Carbon Dioxide 25 mmol/L (22-30); Chloride 102 mmol/L (98-107); Glucose 90 mg/dL (74-99); Non-African American GFR(MDRD) >60 (>60 ml/min/1.73 sqM); Potassium 3.2 mmol/L (3.5-5.1); Sodium 137 mmol/L (137-145); Total Bilirubin 0.7 mg/dL (0.2-1.3); Total Protein 5.7 g/dL (6.3-8.2)
[2017-01-29] MEDS: CARBIDOPA-LEVODOPA 25-100 MG 1 EACH TAB PO SCH ×2 (10:26→16:49)
[2017-01-29] MEDS: NITROFURANTOIN MONOHYD/M-CRYST 100 MG CAP PO SCH (10:26)
[2017-01-29 15:31] VITALS: PULSE 87; TEMP 98.7
--- NOTE | 2017-01-30 07:50 | PN ---
DATE OF SERVICE: 01/29/2017 Reason for followup is urinary tract infection. INTERVAL HISTORY: The patient is afebrile. She has been breathing comfortably. Denies significant chest pain or shortness of breath or cough. No nausea, vomiting or any diarrhea. On examination, blood pressure is 126/59 with a pulse of 79, temperature 98. She is 95% on room air. General description is an elderly female lying in bed in no distress. RESPIRATORY SYSTEM: Unlabored breathing. Clear to auscultation anteriorly. HEART: S1, S2, regular rate and rhythm. ABDOMEN: Soft. No tenderness. LABS: BUN of 6 with a creatinine 0.36. Liver enzymes have improved. Repeat urine culture has been negative. DIAGNOSTIC IMPRESSION AND PLAN: Patient with history of recurrent urinary tract infection. Previous culture has been ESBL, however, culture has been negative so far. The patient has received about a week of oral Macrobid that should be enough. No need for antibiotic at time of discharge. Will follow up in the office next week. Continue supportive care.
--- NOTE | 2017-01-31 05:04 | DS ---
DATE OF ADMISSION: 01/24/2017 DATE OF DISCHARGE: 01/29/2017 DATE OF SERVICE: 01/29/2017 HOSPITAL COURSE: Ms. Dubois is an 86-year-old female with a past medical history of hypertension, dementia, Parkinson's disease admitted to the hospital with urinary tract infection. Patient has recurrent history of UTI so Infectious Disease, Dr. Ortiz has been consulted. Patient did get a urine culture that was negative. She completed her dose of Macrobid and so she was not continue on antibiotics. Patient did have some elevation in her liver enzymes, which were thought to be secondary to herbal supplements that she takes over the counter and also Tylenol and that she takes for her pain. Tylenol has been discontinued and patient was advised to stop taking her herbal supplements. Eventually patient was back to her baseline. The son was with her during her hospital stay and insisted that he would like to take his mother home and that he would arrange for 24/7 care as she has dementia she needs 24/7 care. Bre is basically back to her baseline. Status is stable for discharge and being discharged home. DISCHARGE DIAGNOSES: 1. Acute hepatitis. 2. Urinary tract infection that has been ruled out. She completed her antibiotic course recently. 3. Chronic idiopathic Parkinson disease. 4. Dementia associated with Parkinson's disease. 5. Acute metabolic encephalopathy that has resolved most likely due to electrolyte imbalance. 6. Essential hypertension. 7. Osteoarthritis of multiple joints. 8. Hypokalemia, resolved. PATIENT'S DISCHARGE MEDICATIONS: 1. Carbidopa levodopa 25/100 mg 1 tablet p.o. 3 times a day. 2. Amlodipine 2.5 mg p.o. q.h.s. 3. Ibuprofen 400 mg q.12 hours. 4. Flomax 0.4 mg q.h.s. The patient is advised to stop taking Tylenol No. 3 and she was also advised to stop taking herbal supplements over the counter. This has been discussed with the patient's son in detail. FOLLOWUP: The patient is advised to follow up with her primary care physician, Dr. Reji Vaughan in 3 to 4 days and also Infectious Disease, Dr. Ortiz within one week's time. Patient is being discharged home with home health care services.
== END 2017-01-29 17:27 | disposition home health service (06) | DRG 441 ==
LOC: EC 17:37 → 5MS5E 22:16
PROVIDERS: ADMIT Hospitalist; ATTEND Hospitalist
DX: K71.2 Toxic liver disease with acute hepatitis (principal); G93.41 Metabolic encephalopathy; G20 Parkinson's disease; F02.80 Dementia in other diseases classified elsewhere, unspecified severity, without behavioral disturbance, psychotic disturbance, mood disturbance, and anxiety; I10 Essential (primary) hypertension; E87.6 Hypokalemia; M15.9 Polyosteoarthritis, unspecified; Z80.3 Family history of malignant neoplasm of breast; Z87.440 Personal history of urinary (tract) infections; Z79.899 Other long term (current) drug therapy; T40.2X5A Adverse effect of other opioids, initial encounter; T50.995A Adverse effect of other drugs, medicaments and biological substances, initial encounter
CPT/HCPCS: 36415; 70450; 71020; 76705; 80053; 80074; 81001; 82140; 82150; 82550; 82553; 83520; 83605; 83690; 84484; 85025; 85610; 85730; 87040; 87086; 93005; 96361; 99285

== ENCOUNTER 2017-02-04 13:27 | Inpatient (IN) | payer MEDICARE, BC ==
[2017-02-04] MEDS ORDERED: SODIUM CHLORIDE 0.9% 500 ML IV ONE (14:08)
[2017-02-04] MEDS ORDERED: SODIUM CHLORIDE 0.9% 1,000 ML IV ONE (14:08)
[2017-02-04] MEDS ORDERED: cefTRIAXone 2,000 MG in SODIUM CHLORIDE 0.9% 100 ML IVPB STA (14:10)
--- NOTE | 2017-02-04 15:19 | CT ---
EXAMINATION TYPE: CT brain wo con DATE OF EXAM: 02/04/2017 3:15 PM COMPARISON: 01/24/2017 HISTORY: Patient poor historian. Patient is unresponsive at time of exam. Altered mental status. CT DLP: 1162 mGycm Automated exposure control for dose reduction was used. FINDINGS: There is cerebral cortical atrophy. There is no mass effect nor midline shift. There is no sign of in tracranial hemorrhage. The calvarium is intact. IMPRESSION: Cerebral atrophy. No acute intracranial abnormality. No change. Chronic small vessel ischemia.
--- NOTE | 2017-02-04 17:03 | ED ---
Altered Mental Status HPI - General Chief Complaint: Altered Mental Status Stated Complaint: sepsis Time Seen by Provider: 02/04/17 13:58 Source: EMS Mode of arrival: EMS Limitations: altered mental status - History of Present Illness Initial Comments: Presented with mental status first patient was seen at another facility and after that she was transferred to our hospital I rechecked with the son he said every time she gets UTIs she Does change in the mental status he noticed some change in mental status this morning. No fever no chills she has been coughing for about a 1 week now, and review of system is available only through the through the son he did not suspect any TIA or any CVA like symptoms - Related Data Home Medications Medication Instructions Recorded Confirmed amLODIPine [Norvasc] 2.5 mg PO HS 10/08/16 02/04/17 Magnesium 200 mg PO DAILY 02/04/17 02/04/17 Multivitamins, Thera [Multivitamin 1 tab PO DAILY 02/04/17 02/04/17 (formulary)] Potassium 99 mg PO DAILY 02/04/17 02/04/17 Vitamin B Complex 1 cap PO DAILY 02/04/17 02/04/17 Previous Rx's Medication Instructions Recorded Carbidopa-Levodopa 25-100 mg 1 tab PO TID #60 tab 10/08/16 [Sinemet 25-100 mg] Allergies Allergy/AdvReac Type Severity Reaction Status Date / Time No Known Allergies Allergy Verified 02/04/17 14:15 Review of Systems ROS Statement: Those systems with pertinent positive or pertinent negative responses have been documented in the HPI. ROS Other: All systems not noted in ROS Statement are negative. Past Medical History Past Medical History: Hypertension, Musculoskeletal Disorder, Neurologic Disorder, Osteoarthritis (OA) Additional Past Medical History / Comment(s): 06/2016 Fall with R humerous and pelvic fracture-no surgical intervention, PARKINSONS, constipation. History of Any Multi-Drug Resistant Organisms: ESBL Date of last positivie culture/infection: 10/12/16 MDRO Source:: ESBL URINE E.COLI Past Surgical History: Tonsillectomy Additional Past Surgical History / Comment(s): hip surgery (nail put in) HIP FRACTURE, PELVIS FRACTURE Past Anesthesia/Blood Transfusion Reactions: No Reported Reaction Additional Past Anesthesia/Blood Transfusion Reaction / Comment(s): Pt's only surgery was a tonsillectomy-no anesthesia was used. Past Psychological History: No Psychological Hx Reported Additional Psychological History / Comment(s): Pt's adult son resides with her. He assists her with many things. She ambulates with a walker. She has a couple of women that she hired to assist her with bathing. Her son takes her to appts. Smoking Status: Never smoker Past Alcohol Use History: None Reported Past Drug Use History: None Reported - Past Family History Father History Unknown: Yes Additional Family Medical History / Comment(s): Father in his 60's. Mother Family Medical History: Cancer Additional Family Medical History / Comment(s): Mother had breast cancer. She at the age of 79yrs. General Exam - General Exam Comments Initial Comments: General: The patient is awake and alert, in no distress, and does not appear acutely ill. Skin: Skin is warm and dry and no rashes or lesions are noted. Eye: Pupils are equal, round and reactive to light, extra-ocular movements are intact; there is normal conjunctiva bilaterally. Ears, nose, mouth and throat: There are moist mucous membranes and no oral lesions. Neck: The neck is supple, there is no tenderness or JVD. Cardiovascular: There is a regular rate and rhythm. No murmur, rub or gallop is appreciated. Respiratory: To auscultation bilateral, noticed crackles at the bases Gastrointestinal: Soft, non-distended, non-tender abdomen without masses or organomegaly noted. There is no rebound or guarding present. Bowel sounds are unremarkable. Back: There is no tenderness to palpation in the midline. There is no obvious deformity. Musculoskeletal: Normal ROM, no tenderness, There is no pedal edema. There is no calf tenderness or swelling. No cords were appreciated. Neurological: CN II-XII intact, Cranial nerves III through XII are intact. There are no obvious motor or sensory deficits. Coordination appears grossly intact. Speech is normal. Psychiatric: Cooperative, he does open her eyes but quite sleepy Limitations: altered mental status Course Vital Signs 02/04/17 02/04/17 13:30 15:49 Temperature 98.1 F 99.9 F H Pulse Rate 78 73 Respiratory 20 20 Rate Blood Pressure 146/62 133/60 O2 Sat by Pulse 93 L 97 Oximetry Medical Decision Making - Lab Data Lab Results 02/04/17 Range/Units 15:41 Plasma Lactic Acid Chidi 1.0 (0.7-2.0) mmol/L Disposition Clinical Impression: UTI (urinary tract infection), Pneumonia Disposition: ADMITTED IP TO THIS HOSP Condition: Good
[2017-02-04 17:56] VITALS: BMI 22.6
[2017-02-04 18:00] LABS: Glucose,Whole Blood 95 mg/dL (75-99)
[2017-02-04] MEDS: SODIUM CHLORIDE 0.9% 1,000 ML IV SCH (18:09)
[2017-02-04] MEDS: IPRATROPIUM-ALBUTEROL 3 ML NEB INHALATION SCH (20:02)
[2017-02-04] MEDS: amLODIPine 2.5 MG TAB PO SCH (22:18)
[2017-02-05] MEDS: SODIUM CHLORIDE 0.9% 1,000 ML IV SCH ×3 (05:25→18:26)
[2017-02-05] MEDS: IPRATROPIUM-ALBUTEROL 3 ML NEB INHALATION SCH ×4 (08:42→20:52)
[2017-02-05] MEDS: POTASSIUM CHLORIDE ORAL LIQUID 40 MEQ/30 ML CUP PO SCH (10:03)
[2017-02-05] MEDS: B COMPLEX-VIT C-VIT E-ZINC 1 EACH TAB PO SCH (10:05)
[2017-02-05] MEDS: MULTIVITAMINS, THERA 1 EACH TAB PO SCH (13:31)
[2017-02-05] MEDS: MAGNESIUM OXIDE 400 MG TAB PO SCH (14:49)
--- NOTE | 2017-02-05 15:48 | XR ---
EXAMINATION TYPE: XR chest 2V DATE OF EXAM: 02/05/2017 3:24 PM HISTORY: pneumonia. REFERENCE: Previous study dated 01/24/2017. FINDINGS: The lungs are overinflated. The heart is enlarged. There are bibasilar infiltrates. No defi nite pleural fluid is seen. IMPRESSION: 1. COPD. 2. CARDIOMEGALY. 3. LIMITED BIBASILAR INFILTRATES.
[2017-02-05] MEDS: AZITHROMYCIN 500 MG TAB PO SCH (18:26)
[2017-02-05] MEDS: HEPARIN SODIUM,PORCINE 5,000 UNIT/ML 1 ML VIAL SQ SCH (20:27)
[2017-02-05] MEDS: amLODIPine 2.5 MG TAB PO SCH (20:27)
--- NOTE | 2017-02-05 23:46 | HP ---
DATE OF ADMISSION: CHIEF COMPLAINT: Change in mental status. HISTORY OF PRESENT ILLNESS: This 86-year-old woman with a past medical history of multiple medical problems, including history of hypertension, history of musculoskeletal disease, history of DJD, history of right humerus and pelvic fracture, history of tonsillectomy, being followed by Dr. Reji Vaughan in the outpatient setting, was admitted to [facility] with complaints of change in mental status. According to the family, every time the patient has a UTI, the patient has some change in mental status. Patient was also suspected to have pneumonia. Patient was admitted for further evaluation and treatment. She is unable to give any coherent history. The detailed history is from the caregiver as well as review of the chart and discussion with the staff. Apparently the patient's adult son resides with her and assists her with many things. The patient ambulates with a walker. There is no history of trauma. Patient has significant Parkinson's. PAST MEDICAL HISTORY: 1. History of hypertension. 2. DJD. 3. History of Parkinson's. 4. History of a fracture. 5. ESBL E. coli. Medications prior to admission include: 1. Norvasc 2.5 mg at bedtime. 2. Vitamin B complex 1 p.o. daily. 3. KCl 99 mg p.o. daily. 4. Multivitamins 1 p.o. daily. 5. Magnesium 200 mg p.o daily. 6. Carbidopa levodopa 1 p.o. t.i.d. ALLERGIES: NONE. Family history, social history, review of systems could not be taken because of the patient's change in mental status. There is a history of cancer in the family per chart. No smoking and no alcohol indicated. PHYSICAL EXAMINATION: Patient is conscious, confused. Pulse is 74, blood pressure 150/77, respiration 20, temperature 97.3, pulse ox 94% on room air. T-max was 99.9. HEENT: Conjunctivae normal. Oral mucosa moist. NECK: No jugular venous distention. No carotid bruit. No lymph node enlargement. CARDIOVASCULAR SYSTEM: S1 normal. S2 normal. No S3. No S4. RESPIRATORY SYSTEM: Breath sounds diminished at the bases. A few scattered rhonchi and crackles. ABDOMEN: Soft, non-tender. No mass palpable. LEGS: No edema. No swelling. NERVOUS SYSTEM: Diffusely weak. LYMPHATICS: No lymph node palpable in neck, axillae or groin. SKIN: No ulcer, rash, bleeding. JOINTS: No active deforming arthropathy. LABS: Plasma lactic acid 1. ASSESSMENT: 1. Change in mental status. Rule out urinary tract infection with sepsis. 2. Rule out pneumonia, bibasilar, Possibly gram-negative. 3. Change in mental status, acute on chronic metabolic encephalopathy. 4. History of dementia. 5. Gait dysfunction. 6. Parkinson's. 7. Hypertension, essential. 8. History of degenerative joint disease. 9. History of right humerus and pelvic fracture. 10. History of constipation. 11. History of ESBL Escherichia coli infection. 12. NO CODE, NO CPR, NO VENT. RECOMMENDATIONS AND DISCUSSION: In this 86-year-old woman who presented with multiple complex medical issues, we will monitor the patient closely, continue the current medications, continue symptomatic treatment. Patient has been empirically started on Rocephin and Zithromax. I would recommend cultures and infectious disease evaluation by Dr. Ortiz. Also continue the bronchodilators and home medication. DVT prophylaxis. Vitamin supplementation. Guarded prognosis because of multiple complex medical issues. Further recommendations to follow. A copy of this dictation is being forwarded to Dr. Vaughan, who is the primary physician. See orders for further details.
[2017-02-06 02:25] LABS: Appearance,Urine Cloudy (Clear); Bacteria,Urine Occasional /hpf; Bilirubin,Urine Negative (Negative); Glucose,Urine (UA) Negative (Negative); Ketones,Urine Negative (Negative); Leukocyte Esterase,Urine Large (Negative); Mucus,Urine Rare /hpf; Nitrite,Urine Negative (Negative); Particle Count 4697; Protein,Urine Negative (Negative); RBC,Urine 1 /hpf (0-5); Specific Gravity,Urine 1.005 (1.001-1.035); Squamous Epithelial Cell,Urine <1 /hpf (0-4); UA Billing (MACRO vs. MICRO) MICRO; Urobilinogen,Urine <2.0 mg/dL (<2.0); WBC,Urine 71 /hpf (0-5)
[2017-02-06] MEDS: SODIUM CHLORIDE 0.9% 1,000 ML IV SCH ×3 (02:40→21:38)
[2017-02-06] MEDS: ACETAMINOPHEN TAB 325 MG TAB PO PRN ×2 (04:39→09:51)
[2017-02-06] MEDS: IPRATROPIUM-ALBUTEROL 3 ML NEB INHALATION SCH ×4 (08:47→20:15)
[2017-02-06] MEDS: HEPARIN SODIUM,PORCINE 5,000 UNIT/ML 1 ML VIAL SQ SCH ×2 (09:23→21:25)
[2017-02-06] MEDS: MULTIVITAMINS, THERA 1 EACH TAB PO SCH (09:24)
[2017-02-06] MEDS: POTASSIUM CHLORIDE ORAL LIQUID 40 MEQ/30 ML CUP PO SCH (09:24)
[2017-02-06] MEDS: B COMPLEX-VIT C-VIT E-ZINC 1 EACH TAB PO SCH (09:25)
[2017-02-06] MEDS: MAGNESIUM OXIDE 400 MG TAB PO SCH (09:25)
[2017-02-06 09:44] LABS: Basophils % (A) 1 %; CH 30.1; CHCM 32.9; Eosinophils # (A) 0.1 k/uL (0-0.7); Eosinophils % (A) 1 %; HCT 34.9 % (34.0-46.0); HGB 11.1 gm/dL (11.4-16.0); Luc # (Auto) 0.17; Luc % (Auto) 3; Lymphocytes # (A) 1.3 k/uL (1.0-4.8); Lymphocytes % (A) 23 %; MCH 29.3 pg (25.0-35.0); MCHC 31.8 g/dL (31.0-37.0); Mean Platelet Volume 7.3; Monocytes # (A) 0.2 k/uL (0-1.0); Monocytes % (A) 3 %; Neutrophils # (A) 3.9 k/uL (1.3-7.7); Neutrophils % (A) 69 %; RBC 3.79 m/uL (3.80-5.40); RDW 13.8 % (11.5-15.5); WBC 5.6 k/uL (3.8-10.6); WBC (Perox) 6.28
[2017-02-06 10:05] LABS: Anion Gap 12 mmol/L; Blood Urea Nitrogen 5 mg/dL (7-17); Calcium 8.8 mg/dL (8.4-10.2); Carbon Dioxide 26 mmol/L (22-30); Chloride 102 mmol/L (98-107); Glucose 150 mg/dL (74-99); Non-African American GFR(MDRD) >60 (>60 ml/min/1.73 sqM); Potassium 3.6 mmol/L (3.5-5.1); Sodium 140 mmol/L (137-145)
[2017-02-06] MEDS: TAMSULOSIN 0.4 MG CAP.ER.24H PO SCH (10:56)
[2017-02-06] MEDS: AZITHROMYCIN 500 MG TAB PO SCH (10:57)
--- NOTE | 2017-02-06 16:56 | P.PN ---
Subjective Date of service 02/06/2017 Progress note being dictated for Dr. Jones. Interval history: This is an 86-year-old female admitted with acute metabolic encephalopathy, possible UTI with sepsis, possible bibasilar pneumonia and multiple other medical issues. Maintained on gentle IV fluid hydration, empiric antibiotics, nebulized bronchodilators with significant clinical improvement. Afebrile, normal WBC. Preliminary blood cultures and urine culture in progress. Objective - Vital Signs Vital signs: Vital Signs Temp 98.2 F 02/06/17 07:00 Pulse 88 02/06/17 12:46 Resp 20 02/06/17 08:00 BP 132/78 02/06/17 11:48 Pulse Ox 93 L 02/06/17 08:48 Intake & Output 02/05/17 02/06/17 02/06/17 18:59 06:59 18:59 Intake Total 320 500 Output Total 700 3300 1875 Balance -380 -2800 -1875 Weight 54.431 kg 54.431 kg Intake: Oral 320 500 Output: Urine 700 3300 1800 Straight 2400 900 Post Void Residual 75 Other: Voiding Method Indwelling Catheter Indwelling Catheter Indwelling Catheter # Voids 1 - Exam PHYSICAL EXAM: VITAL SIGNS: [As above] GENERAL: [Sitting up in chair, no acute distress] HEENT: [Pupils equal conjunctiva normal.] NECK: [Supple, no JVD] RESPIRATORY EFFORT:[Normal] LUNGS: [Bilateral bases diminished, occasional fine scattered basilar crackles] CARDIOVASCULAR[regular S1 and S2, no edema] GI: [Abdomen soft, nontender, positive bowel sounds.] PSYCH: [Alert and oriented -2, mood and affect normal.] NEURO: [Moves all extremities, shuffling steps, Generalized diffuse weakness, no new focal deficits] - Labs CBC & Chem 7: 02/06/17 09:02 02/06/17 09:02 Labs: Abnormal Lab Results - Last 24 Hours (Table) 02/05/17 02/06/17 02/06/17 Range/Units 23:30 09:02 09:02 RBC 3.79 L (3.80-5.40) m/uL Hgb 11.1 L (11.4-16.0) gm/dL BUN 5 L (7-17) mg/dL Creatinine 0.44 L (0.52-1.04) mg/dL Glucose 150 H (74-99) mg/dL Urine Appearance Cloudy H (Clear) Ur Leukocyte Esterase Large H (Negative) Urine WBC 71 H (0-5) /hpf Urine WBC Clumps Few H (None) /hpf Urine Bacteria Occasional H (None) /hpf Urine Mucus Rare H (None) /hpf Microbiology - Last 24 Hours (Table) 02/05/17 23:30 Urine Culture - Preliminary Urine,Catheterized Assessment and Plan Plan: 1. [Acute mental status change, acute on chronic metabolic encephalopathy, possible UTI with sepsis in a patient with history of ESBL, E. coli infection]. 2. Possibly bibasilar pneumonia, possibly gram-negative 3. Parkinson's disease with Dementia]. 4. Degenerative joint disease with [Gait dysfunction]. 5. Essential hypertension 6. No Code, No CPR, No Vent Plan: Continue on current medication regime ,monitoring and symptomatic treatment. Continue following cultures closely. Antibiotics as per ID. Plan of care discussed with Outpatient caregiver at bedside. PT/OT. Discharge planning in progress for tomorrow. Further recommendations to follow. The impression and plan of care has been dictated as directed. : I performed a H&P examination of this patient and discussed the same with the dictator. I agree with the dictator's note. Any additional findings/opinions/ etc. will be noted.
--- NOTE | 2017-02-06 17:40 | CONS ---
DATE OF CONSULTATION: 02/06/2017 REASON FOR CONSULTATION: Pneumonia and urinary tract infection. HISTORY OF PRESENT ILLNESS: The patient is an 86-year-old female with recent multiple admissions to the hospital. The patient was brought into the ER at [facility] on 02/04/2017 after the patient apparently was noticed to have some mental status changes. The history was provided mostly by the caregiver she noticed on Sunday when she was leaving the son from her care, she noticed the patient to be slightly slumped over and slightly confused. No fever has been noticed. She has some mild cough, but not bringing up any sputum. No choking on the food has been noticed. No nausea, no vomiting or any diarrhea with concern for possible CVA, with drooling of her face. The patient did have a CT of the brain, which was negative for any acute intracranial abnormality. Patient did have a chest x-ray, which did show some COPD, cardiomegaly, bibasilar infiltrate. The patient was given a diagnosis of pneumonia, has been admitted to the hospital. I was asked to see the patient for further recommendation. Patient has no fever during this admission except 99.9 on presentation to the ER. Patient did have a normal white count, no nausea or vomiting has been noticed. With a history of recurrent UTIs, UA was ordered last night which did show large leukocyte esterase. Blood culture has been negative so far. REVIEW OF SYSTEMS: Could not be reliably obtained, the positives points have been mentioned in the HPI. PAST MEDICAL HISTORY: Significant for recurrent urinary tract infection and EBSL Escherichia coli, the patient also has history of hypertension, osteoarthritis, Parkinson disease. PAST SURGICAL HISTORY: Tonsillectomy and hip surgery. SOCIAL HISTORY: No history of smoking, drinking or drug use. FAMILY HISTORY: Mother with history of breast cancer. ALLERGIES: No known drug allergies. Medications currently include the patient is on: 1. Tylenol. 2. DuoNeb. 3. Norvasc. 4. Zithromax. 5. Rocephin. 6. Heparin. 7. Mag oxide. 8. Theragran. On examination, her blood pressure is 181/71 with pulse 104, temperature 98.2, she is 93% on 2 liters nasal cannula. General description is an elderly female up in the chair in no distress. HEENT: Slight pallor. There is no scleral icterus. Oral mucosal membranes dry. NECK: Trachea central. There is no thyromegaly. LUNGS: Unlabored breathing with decreased breath sounds at the bases. No wheeze. HEART: S1, S2. Irregular rate and rhythm. ABDOMEN: Soft, no tenderness. No guarding or rigidity. EXTREMITIES: No edema of feet. SKIN EXAMINATION: No rash. No mass palpable. NEUROLOGICAL: The patient is awake, alert, oriented x one. Mood and affect normal. LABS: Hemoglobin is 11.1, white count 5.6 with a BUN of 5, creatinine 0.44. DIAGNOSTIC IMPRESSION AND PLAN: Patient admitted to the hospital with mental status changes. Patient with no significant fever, elevated white count. The x-ray finding might represent possible atelectasis rather than clinical pneumonia. The patient did have a history of recurrent urinary tract infection. Urine has been positive. Awaiting for the culture to finalize. It was hard to get a good history from the patient as far as symptoms are concerned urinary tract hankins. PLAN: 1. Will wait for the culture to finalize. Continue the patient on Rocephin and Azithromycin at this point. 2. We will encourage incentive spirometry and possible chest PT. 3. In view of patient advanced age and multiple comorbidities, patient may benefit from palliative care. This was discussed with the primary team. Thank you for this consultation. Will follow this patient along with you. VALERY
[2017-02-06] MEDS: amLODIPine 2.5 MG TAB PO SCH (21:25)
[2017-02-07] MEDS: SODIUM CHLORIDE 0.9% 1,000 ML IV SCH ×2 (05:18→11:23)
[2017-02-07] MEDS: IPRATROPIUM-ALBUTEROL 3 ML NEB INHALATION SCH ×4 (06:56→20:31)
[2017-02-07 07:09] LABS: Appearance,Urine Clear (Clear); Bilirubin,Urine Negative (Negative); Glucose,Urine (UA) Negative (Negative); Ketones,Urine Negative (Negative); Leukocyte Esterase,Urine Negative (Negative); Nitrite,Urine Negative (Negative); PH, Urine 7.5 (5.0-8.0); Protein,Urine Negative (Negative); Specific Gravity,Urine 1.004 (1.001-1.035); UA Billing (MACRO vs. MICRO) CHEM; Urobilinogen,Urine <2.0 mg/dL (<2.0)
[2017-02-07 08:51] LABS: Basophils % (A) 1 %; CH 29.8; CHCM 32.9; Eosinophils # (A) 0.1 k/uL (0-0.7); Eosinophils % (A) 2 %; HCT 32.3 % (34.0-46.0); HDW 2.95; HGB 10.5 gm/dL (11.4-16.0); Luc # (Auto) 0.16; Luc % (Auto) 3; Lymphocytes # (A) 0.9 k/uL (1.0-4.8); Lymphocytes % (A) 18 %; MCH 29.6 pg (25.0-35.0); MCHC 32.5 g/dL (31.0-37.0); MCV 91.1 fL (80.0-100.0); Mean Platelet Volume 7.5; Monocytes # (A) 0.2 k/uL (0-1.0); Monocytes % (A) 5 %; Neutrophils # (A) 3.7 k/uL (1.3-7.7); Neutrophils % (A) 72 %; RBC 3.54 m/uL (3.80-5.40); RDW 13.8 % (11.5-15.5); WBC 5.2 k/uL (3.8-10.6); WBC (Perox) 5.57
[2017-02-07] MEDS: MAGNESIUM OXIDE 400 MG TAB PO SCH (09:27)
[2017-02-07] MEDS: HEPARIN SODIUM,PORCINE 5,000 UNIT/ML 1 ML VIAL SQ SCH ×2 (09:27→20:03)
[2017-02-07] MEDS: B COMPLEX-VIT C-VIT E-ZINC 1 EACH TAB PO SCH (09:27)
[2017-02-07 09:29] LABS: Anion Gap 9 mmol/L; Blood Urea Nitrogen 5 mg/dL (7-17); Calcium 8.6 mg/dL (8.4-10.2); Carbon Dioxide 27 mmol/L (22-30); Chloride 104 mmol/L (98-107); Glucose 87 mg/dL (74-99); Non-African American GFR(MDRD) >60 (>60 ml/min/1.73 sqM); Potassium 3.4 mmol/L (3.5-5.1); Sodium 140 mmol/L (137-145)
[2017-02-07] MEDS: POTASSIUM CHLORIDE 20 MEQ, LIDOCAINE 2% INJ 20 MG in SODIUM CHLORIDE 0.9% 100 ML IVPB SCH ×2 (11:23→13:26)
[2017-02-07] MEDS: MULTIVITAMINS, THERA 1 EACH TAB PO SCH (12:19)
[2017-02-07] MEDS: AZITHROMYCIN 500 MG TAB PO SCH (12:19)
[2017-02-07] MEDS: PIPERACILLIN-TAZOBACTAM 3.375 GM in DEXTROSE/WATER 1 50ML.BAG IVPB SCH ×2 (16:33→23:20)
--- NOTE | 2017-02-07 16:49 | P.PN ---
Subjective Date of service 02/07/2017 Progress note being dictated for Dr. Jones. Interval history: This is an 86-year-old female admitted with acute metabolic encephalopathy, possible UTI with sepsis, possible bibasilar pneumonia and multiple other medical issues. Continues on gentle IV fluid hydration, empiric antibiotics, nebulized bronchodilators. High postvoid residuals, Rosen catheter placed during the night. Developed expiratory wheezing, possible aspiration, febrile, T-max 99.2, normal WBC. Gram-negative bacilli in initial urine culture with repeat urine culture results pending. Preliminary blood cultures pending. Potassium 3.4. Objective - Vital Signs Vital signs: Vital Signs Temp 99.2 F 02/07/17 15:00 Pulse 92 02/07/17 15:38 Resp 20 02/07/17 15:00 BP 163/88 02/07/17 15:00 Pulse Ox 96 02/07/17 15:00 Intake & Output 02/06/17 02/07/17 02/07/17 18:59 06:59 18:59 Intake Total 370 200 480 Output Total 3025 3704 Balance -2655 -3504 480 Weight 54.431 kg Intake: IV 480 Potassium Chloride 20 meq 100 Lidocaine 2% Inj 20 mg In Sodium Chloride 0.9% 100 ml @ 55.5 mls/hr IVPB Q2HR MELE Rx#:[id number] Sodium Chloride 0.9% 1, 330 000 ml @ 60 mls/hr IV . [id number] MELE Rx#:[id number] cefTRIAXone 1,000 mg In 50 Sodium Chloride 0.9% 50 ml @ 100 mls/hr IVPB Q24HR [facility]LE Rx#:[id number] Intake, IV Titration 250 Amount Sodium Chloride 0.9% 1, 200 000 ml @ 60 mls/hr IV . [id number] MELE Rx#:[id number] cefTRIAXone 1,000 mg In 50 Sodium Chloride 0.9% 50 ml @ 100 mls/hr IVPB Q24HR MELE Rx#:[id number] Oral 120 200 Output: Urine 2375 1600 Straight 1400 1600 Post Void Residual 650 2104 Other: Voiding Method Bedside Commode Incontinent Indwelling Catheter Bedpan # Voids 1 1 - Exam PHYSICAL EXAM: VITAL SIGNS: [As above] GENERAL: [Sitting up in bed, mildly increased respiratory effort] HEENT: [Pupils equal conjunctiva normal.] NECK: [Supple, no JVD] RESPIRATORY EFFORT: Mildly increased] LUNGS: [Bilateral bases diminished, occasional fine scattered basilar crackles , new-onset expiratory wheezing] CARDIOVASCULAR[regular S1 and S2, no edema] GI: [Abdomen soft, nontender, positive bowel sounds.] PSYCH: [Alert and oriented -2, mood and affect normal.] NEURO: Shuffling steps, Generalized diffuse weakness, no new focal deficits. - Labs CBC & Chem 7: 02/07/17 08:27 02/07/17 08:27 Labs: Abnormal Lab Results - Last 24 Hours (Table) 02/07/17 02/07/17 Range/Units 08:27 08:27 RBC 3.54 L (3.80-5.40) m/uL Hgb 10.5 L (11.4-16.0) gm/dL Hct 32.3 L (34.0-46.0) % Lymphocytes # 0.9 L (1.0-4.8) k/uL Potassium 3.4 L (3.5-5.1) mmol/L BUN 5 L (7-17) mg/dL Creatinine 0.40 L (0.52-1.04) mg/dL Microbiology - Last 24 Hours (Table) 02/05/17 23:30 Urine Culture - Preliminary Urine,Catheterized Gram Neg Bacilli 02/07/17 06:15 Urine Culture - Preliminary Urine,Catheterized Assessment and Plan Plan: 1. [Acute mental status change, acute on chronic metabolic encephalopathy, possible UTI with sepsis in a patient with history of ESBL, E. coli infection]. 2. Possibly bibasilar pneumonia, possibly gram-negative 3. Parkinson's disease with Dementia]. 4. Degenerative joint disease with [Gait dysfunction]. 5. Essential hypertension 6. No Code, No CPR, No Vent 7. Urinary retention with high post void residuals, rosen placed and will need outpatient follow-up with urology. 8. Possible aspiration pneumonia, workup in progress. Plan: Continue on current medication regime , antibiotics, monitoring and symptomatic treatment. Continue following cultures closely. Speech therapy consulted for swallow evaluation, suspect possible aspiration .strict aspiration precautions. Chest x-ray ordered. Potassium supplemented. Plan of care discussed with Outpatient caregiver at bedside. PT/OT. Discharge planning in progress for tomorrow. Further recommendations to follow. The impression and plan of care has been dictated as directed. : I performed a H&P examination of this patient and discussed the same with the dictator. I agree with the dictator's note. Any additional findings/opinions/ etc. will be noted.
[2017-02-07] MEDS: TAMSULOSIN 0.4 MG CAP.ER.24H PO SCH (20:03)
[2017-02-07] MEDS: amLODIPine 2.5 MG TAB PO SCH (20:03)
--- NOTE | 2017-02-07 20:05 | XR ---
EXAMINATION TYPE: XR chest 2V DATE OF EXAM: 02/07/2017 7:57 PM COMPARISON: Chest x-ray from 2 days ago. HISTORY: Difficulty in breathing. TECHNIQUE: Frontal and lateral views of the chest are obtained. FINDINGS: There is chronic parenchymal change with persistent patchy bibasilar atelectasis and/or in filtrate and probable small bilateral pleural effusions. No new focal airspace opacity or pneumothora x seen bilaterally. The cardiac silhouette size is stable and enlarged with atherosclerotic thoracic aorta. Chronic healed fracture deformities in bilateral humeral heads are redemonstrated. IMPRESSION: Chronic emphysematous change and cardiomegaly with patchy bibasilar atelectasis and/or i nfiltrate and likely small bilateral pleural effusions all redemonstrated. No significant change from prior study.
--- NOTE | 2017-02-07 22:01 | PN ---
DATE OF SERVICE: 02/07/2017 REASON FOR FOLLOWUP: Possible aspiration pneumonia and UTI. INTERVAL HISTORY: The patient is afebrile. She was fed by the caregiver and she noticed that she had some congested cough but not able to bring any sputum up. The patient herself denies having any chest pain; however, she is not a very good historian. No nausea, vomiting or any diarrhea. On examination, blood pressure is 163/88 with a pulse of 86, temperature 99.2. She is 96% on 2 L nasal cannula. General description is an elderly female up in the bed in no distress. RESPIRATORY SYSTEM: Unlabored breathing. Coarse breath sounds bilaterally. HEART: S1, S2. Regular rate and rhythm. ABDOMEN: Soft. No tenderness. LABS: Hemoglobin 10.5, white count 5.2 with a BUN of 5, creatinine 0.40. DIAGNOSTIC IMPRESSION AND PLAN: Patient admitted to hospital with mental status changes and now having congested cough and wheezing with a question of possible aspiration pneumonitis. At this time we will repeat a chest x-ray PA and lateral. Will try to obtain sputum. change antibiotic to Zosyn, discontinue Rocephin and azithromycin. Will benefit from a swallow evaluation, possible palliative care. Plan of care discussed with the nurse practitioner for the primary team. VALERY
[2017-02-08] MEDS: SODIUM CHLORIDE 0.9% 1,000 ML IV SCH (04:39)
[2017-02-08 07:31] VITALS: BP 148/70; RESP 18; TEMP 97.3
[2017-02-08] MEDS: MAGNESIUM OXIDE 400 MG TAB PO SCH (08:31)
[2017-02-08] MEDS: B COMPLEX-VIT C-VIT E-ZINC 1 EACH TAB PO SCH (08:31)
[2017-02-08] MEDS: PIPERACILLIN-TAZOBACTAM 3.375 GM in DEXTROSE/WATER 1 50ML.BAG IVPB SCH ×2 (08:31→17:17)
[2017-02-08] MEDS: HEPARIN SODIUM,PORCINE 5,000 UNIT/ML 1 ML VIAL SQ SCH (08:32)
[2017-02-08 09:14] LABS: Basophils % (A) 0 %; CH 29.7; CHCM 32.5; Eosinophils # (A) 0.1 k/uL (0-0.7); Eosinophils % (A) 2 %; HCT 31.6 % (34.0-46.0); HDW 2.84; HGB 10.3 gm/dL (11.4-16.0); Hypochromasia Slight; Luc % (Auto) 2; Lymphocytes % (A) 17 %; MCH 29.9 pg (25.0-35.0); MCHC 32.6 g/dL (31.0-37.0); MCV 91.7 fL (80.0-100.0); Mean Platelet Volume 6.4; Monocytes # (A) 0.3 k/uL (0-1.0); Monocytes % (A) 5 %; Neutrophils # (A) 4.4 k/uL (1.3-7.7); Neutrophils % (A) 74 %; RBC 3.45 m/uL (3.80-5.40); RDW 13.7 % (11.5-15.5); WBC 5.9 k/uL (3.8-10.6)
[2017-02-08] MEDS: IPRATROPIUM-ALBUTEROL 3 ML NEB INHALATION SCH ×3 (09:17→15:32)
[2017-02-08 09:32] LABS: Anion Gap 10 mmol/L; Blood Urea Nitrogen 8 mg/dL (7-17); Calcium 8.8 mg/dL (8.4-10.2); Carbon Dioxide 25 mmol/L (22-30); Chloride 102 mmol/L (98-107); Glucose 85 mg/dL (74-99); Non-African American GFR(MDRD) >60 (>60 ml/min/1.73 sqM); Potassium 4.3 mmol/L (3.5-5.1); Sodium 137 mmol/L (137-145)
[2017-02-08] MEDS: MULTIVITAMINS, THERA 1 EACH TAB PO SCH (11:20)
[2017-02-08 15:45] VITALS: PULSE 84
--- NOTE | 2017-02-08 16:09 | PN ---
DATE OF SERVICE: 02/08/2017 REASON FOR FOLLOWUP: Possible aspiration pneumonia. INTERVAL HISTORY: The patient is afebrile. The patient remains lethargic; however, did answer some simple questions. No nausea or vomiting has been noticed. The caregiver was present at the bedside and did mention she fed her slowly and did not notice any choking. However, when the patient feeds herself she tries to put too much food in her mouth and then does choke on the food. No nausea or vomiting has been noticed or any diarrhea. On examination, her blood pressure is 148/70 with a pulse of 74, temperature 97.3. She is 99% on 2 L nasal cannula. General description is an elderly female lying in bed in no distress. HEENT EXAMINATION: Pallor. Oral mucous membrane is dry. LUNGS: Unlabored breathing. Relatively clear to auscultation anteriorly. HEART: S1, S2. Regular rate and rhythm. ABDOMEN: Soft. No tenderness. LABS: Hemoglobin is 10.3 with a white count of 5.9. BUN of 8, creatinine 0.53. Repeat urine is negative. DIAGNOSTIC IMPRESSION AND PLAN: Patient admitted to hospital with mental status changes; did have a congested cough with a question of likely aspiration pneumonitis. Waiting for the swallow evaluation. Patient is currently on Zosyn, which will be continued. In view of advanced age and multiple comorbidities, would benefit from palliative care. Continue supportive care.
--- NOTE | 2017-02-08 17:08 | P.DS ---
Providers Date of admission: 02/04/17 17:05 Expected date of discharge: 02/08/17 Attending physician: Jozef Jones Consults: 02/05/17 18:20 Consult Physician Routine Consulting Provider: Katya Ortiz Consult Reason/Comments: uti, pneumonia? Do you want consulting provider notified?: Yes Primary care physician: [facility] Hospital Course: Final Diagnoses: 1. [Acute mental status change, acute on chronic metabolic encephalopathy, possible UTI with sepsis in a patient with history of ESBL, E. coli infection]. Improved 2. Suspect aspiration pneumonitis; status post modified barium swallow reporting moderate to severe oral dysphagia and mild to moderate pharyngeal dysphagia. 3. Parkinson's disease with Dementia]. 4. Degenerative joint disease with [Gait dysfunction]. 5. Essential hypertension 6. No Code, No CPR, No Vent 7. Urinary retention with high post void residuals, rosen placed and will need outpatient follow-up with urology. 8. Chronic emphysematous change and cardiomegaly Hospital course:This is an 86-year-old female admitted with acute metabolic encephalopathy, possible UTI with sepsis, possible bibasilar pneumonia and multiple other medical issues. On admission afebrile with normal WBC. Evaluated by infectious disease. Maintained on gentle IV fluid hydration,IV antibiotics, nebulized bronchodilators. Blood cultures negative at 72 hours. High postvoid residuals, Rosen catheter placed. Initial urine culture positive ESBL,MDRO-suspected contamination. Urine culture repeated and negative at 18 hours. Developed congestion with expiratory wheezing, suspected aspiration. Evaluated by speech therapy.Underwent modified barium swallow reporting moderate to severe oral dysphagia and mild to moderate pharyngeal dysphagia. Pur ed Dysphagia 1 diet recommended with honey thickened liquids. Strict aspiration precautions with head of bed up at 45 at all times. Given patient' s multiple comorbidities, age, patient may benefit from palliative care. Patient has been cleared by infectious disease with antibiotic recommendations noted. Patient will be discharged home in a stable condition with guarded prognosis. Patient Condition at Discharge: Stable Plan - Discharge Summary New Discharge Prescriptions: Moxifloxacin HCl [Avelox] 400 mg PO DAILY #7 tablet Wheat Dextrin [Benefiber] 1 each PO DAILY #30 powd.pack Discharge Medication List Carbidopa-Levodopa 25-100 mg [Sinemet 25-100 mg] 1 tab PO TID #60 tab 10/08/16 [ Rx] amLODIPine [Norvasc] 2.5 mg PO HS 10/08/16 [History] Magnesium 200 mg PO DAILY 02/04/17 [History] Multivitamins, Thera [Multivitamin (formulary)] 1 tab PO DAILY 02/04/17 [History ] Potassium 99 mg PO DAILY 02/04/17 [History] Vitamin B Complex 1 cap PO DAILY 02/04/17 [History] Tamsulosin HCl [Flomax] 0.4 mg PO HS 02/05/17 [History] Moxifloxacin HCl [Avelox] 400 mg PO DAILY #7 tablet 02/08/17 [Rx] Wheat Dextrin [Benefiber] 1 each PO DAILY #30 powd.pack 02/08/17 [Rx] Follow up Appointment(s)/Referral(s): Jordan Mccoy MD [STAFF PHYSICIAN] - 1 Week (For urinary retention Family states son to make appointment.) Reji Vaughan MD [Primary Care Provider] - 3 Days (Per family, son to make appointment.) Ambulatory/Diagnostic Orders: Complete Blood Count w/diff [LAB.AMB] Time Frame: 3 Days, Location: Determined By Patient Patient Instructions/Handouts: Rosen Catheter Placement and Care (DC), Aspiration Pneumonia (DC) Activity/Diet/Wound Care/Special Instructions: Home with Rosen catheter. Puree diet, honey thickened liquids Strict Aspiration precautions.
--- NOTE | 2017-02-08 17:43 | FL ---
Modified barium swallow HISTORY: Aspiration Patient was given barium mixed with various liquids and solids and evaluated in real-time fluoroscopy in the lateral projection. 3 minutes fluoroscopy time supplied. No evident aspiration or laryngeal penetration. Swallowing mechanism is normal. See dictated report s peech pathology.
== END 2017-02-08 17:18 | disposition home or self-care (01) | DRG 871 ==
LOC: EC 13:27 → 4MS4W 17:05
PROVIDERS: ADMIT Hospitalist; ATTEND Hospitalist
DX: A41.9 Sepsis, unspecified organism (principal); G93.41 Metabolic encephalopathy; J69.0 Pneumonitis due to inhalation of food and vomit; N39.0 Urinary tract infection, site not specified; G20 Parkinson's disease; F02.80 Dementia in other diseases classified elsewhere, unspecified severity, without behavioral disturbance, psychotic disturbance, mood disturbance, and anxiety; I10 Essential (primary) hypertension; M19.91 Primary osteoarthritis, unspecified site; R26.9 Unspecified abnormalities of gait and mobility; K59.00 Constipation, unspecified; Z66 Do not resuscitate; R13.11 Dysphagia, oral phase; R13.13 Dysphagia, pharyngeal phase; Z16.12 Extended spectrum beta lactamase (ESBL) resistance; Z16.24 Resistance to multiple antibiotics; Z87.440 Personal history of urinary (tract) infections; Z79.899 Other long term (current) drug therapy
CPT/HCPCS: 36415; 70450; 71020; 74230; 80048; 81001; 81003; 83605; 83735; 85025; 87040; 87077; 87086; 87186; 94640; 94760; 96361; 96365; 99285

== ENCOUNTER 2017-05-22 17:49 | Inpatient (IN) | payer MEDICARE, BC ==
[2017-05-22] MEDS ORDERED: SODIUM CHLORIDE 0.9% 1,000 ML IV ONE (18:13)
[2017-05-22] MEDS ORDERED: SODIUM CHLORIDE 0.9% 500 ML IV ONE (18:13)
--- NOTE | 2017-05-22 18:17 | ED ---
General Adult HPI - General Chief complaint: Urogenital Stated complaint: UTI Time Seen by Provider: 05/22/17 18:03 Source: patient, RN notes reviewed Mode of arrival: ambulatory Limitations: no limitations - History of Present Illness Initial comments: 87-year-old female presents emergency Department with son for UTI, fever or confusion. Patient has a history of urinary tract infections with sepsis. Patient started on Macrobid yesterday by her PCP. Patient has taken 3 doses. Son has noticed increase in confusion, fever and increased labored breathing. Patient had no cough no cold-like symptoms. Patient has a history of dementia/ Parkinson's. Patient has catheter in place recently changed one week ago. She has had a catheter for a while now. Patient's abdomen diarrhea no constipation did have an episode of vomiting earlier today. - Related Data Home Medications Medication Instructions Recorded Confirmed amLODIPine [Norvasc] 2.5 mg PO HS 10/08/16 05/22/17 Multivitamins, Thera [Multivitamin 1 tab PO DAILY 02/04/17 05/22/17 (formulary)] Nitrofurantoin Monohyd/M-Cryst 100 mg PO Q12HR 05/22/17 05/22/17 [Macrobid] Previous Rx's Medication Instructions Recorded Carbidopa-Levodopa 25-100 mg 1 tab PO TID #60 tab 10/08/16 [Sinemet 25-100 mg] Allergies Allergy/AdvReac Type Severity Reaction Status Date / Time No Known Allergies Allergy Verified 05/22/17 18:50 Review of Systems ROS Statement: Those systems with pertinent positive or pertinent negative responses have been documented in the HPI. ROS Other: All systems not noted in ROS Statement are negative. Past Medical History Past Medical History: Hypertension, Musculoskeletal Disorder, Neurologic Disorder, Osteoarthritis (OA) Additional Past Medical History / Comment(s): 06/2016 Fall with R humerous and pelvic fracture-no surgical intervention, PARKINSONS, constipation. History of Any Multi-Drug Resistant Organisms: ESBL Date of last positivie culture/infection: 02/08/17 MDRO Source:: ESBL URINE E.COLI Past Surgical History: Tonsillectomy Additional Past Surgical History / Comment(s): hip surgery (nail put in) HIP FRACTURE, PELVIS FRACTURE. Past Anesthesia/Blood Transfusion Reactions: No Reported Reaction Additional Past Anesthesia/Blood Transfusion Reaction / Comment(s): Pt's only surgery was a tonsillectomy-no anesthesia was used. Past Psychological History: No Psychological Hx Reported Smoking Status: Never smoker Past Alcohol Use History: None Reported Past Drug Use History: None Reported - Past Family History Father History Unknown: Yes Additional Family Medical History / Comment(s): Father in his 60's. Mother Family Medical History: Cancer Additional Family Medical History / Comment(s): Mother had breast cancer. She at the age of 79yrs. General Exam Limitations: no limitations General appearance: alert, in no apparent distress Head exam: Present: atraumatic, normocephalic, normal inspection Neck exam: Present: normal inspection. Absent: tenderness, meningismus, lymphadenopathy Respiratory exam: Present: respiratory distress (mild), other (tachypnea). Absent: normal lung sounds bilaterally, wheezes, rales, rhonchi, stridor Cardiovascular Exam: Present: normal rhythm, tachycardia, normal heart sounds. Absent: systolic murmur, diastolic murmur, rubs, gallop, clicks GI/Abdominal exam: Present: soft, normal bowel sounds. Absent: distended, tenderness, guarding, rebound, rigid Back exam: Absent: CVA tenderness (R), CVA tenderness (L) Neurological exam: Present: alert, CN II-XII intact. Absent: oriented X3 Skin exam: Present: warm, dry, intact, normal color. Absent: rash Course Vital Signs 05/22/17 05/22/17 05/22/17 17:56 18:55 20:14 Temperature 100.5 F H 97.2 F L 97.9 F Pulse Rate 104 H 88 84 Respiratory 16 18 19 Rate Blood Pressure 130/58 159/72 163/70 O2 Sat by Pulse 90 L 97 98 Oximetry 05/22/17 21:04 Temperature Pulse Rate 77 Respiratory 17 Rate Blood Pressure 171/74 O2 Sat by Pulse 98 Oximetry Medical Decision Making - Medical Decision Making 87-year-old female presented for fever pulse rate is shortness breath. Patient appears to have pneumonia which we started on Levaquin for. Patient does have markedly elevated liver enzymes though she's had this in the past when she has been sick with a negative workup. Patient is having no abdominal discomfort. Patient will have repeat ultrasound done on an inpatient aspect. - Lab Data Result diagrams: 05/22/17 18:40 05/22/17 18:40 Lab Results 05/22/17 05/22/17 05/22/17 Range/Units 18:40 18:40 18:40 WBC 11.5 H (3.8-10.6) k/uL RBC 3.89 (3.80-5.40) m/uL Hgb 11.5 (11.4-16.0) gm/dL Hct 32.7 L (34.0-46.0) % MCV 84.1 (80.0-100.0) fL MCH 29.6 (25.0-35.0) pg MCHC 35.2 (31.0-37.0) g/dL RDW 14.5 (11.5-15.5) % Plt Count 342 (150-450) k/uL Neutrophils % 93 % Lymphocytes % 3 % Monocytes % 3 % Eosinophils % 0 % Basophils % 0 % Neutrophils # 10.7 H (1.3-7.7) k/uL Lymphocytes # 0.3 L (1.0-4.8) k/uL Monocytes # 0.4 (0-1.0) k/uL Eosinophils # 0.1 (0-0.7) k/uL Basophils # 0.0 (0-0.2) k/uL PT (9.0-12.0) sec INR (<1.1) APTT (22.0-30.0) sec Sodium 131 L (137-145) mmol/L Potassium 3.9 (3.5-5.1) mmol/L Chloride 97 L (98-107) mmol/L Carbon Dioxide 24 (22-30) mmol/L Anion Gap 10 mmol/L BUN 15 (7-17) mg/dL Creatinine 0.37 L (0.52-1.04) mg/dL Est GFR (MDRD) Af Amer >60 (>60 ml/min/1.73 sqM) Est GFR (MDRD) Non-Af >60 (>60 ml/min/1.73 sqM) Glucose 154 H (74-99) mg/dL Plasma Lactic Acid Chidi 0.9 (0.7-2.0) mmol/L Calcium 8.6 (8.4-10.2) mg/dL Total Bilirubin 1.9 H (0.2-1.3) mg/dL AST 1268 H (14-36) U/L ALT 311 H (9-52) U/L Alkaline Phosphatase 255 H (38-126) U/L Troponin I (0.000-0.034) ng/mL Total Protein 6.6 (6.3-8.2) g/dL Albumin 3.4 L (3.5-5.0) g/dL Urine Color Urine Appearance (Clear) Urine pH (5.0-8.0) Ur Specific [place] (1.001-1.035) Urine Protein (Negative) Urine Glucose (UA) (Negative) Urine Ketones (Negative) Urine Blood (Negative) Urine Nitrite (Negative) Urine Bilirubin (Negative) Urine Urobilinogen (<2.0) mg/dL Ur Leukocyte Esterase (Negative) Urine RBC (0-5) /hpf Urine WBC (0-5) /hpf Urine Bacteria (None) /hpf Urine Mucus (None) /hpf Urine Yeast (Budding) (None) /hpf 05/22/17 05/22/17 05/22/17 Range/Units 18:40 18:40 19:41 WBC (3.8-10.6) k/uL RBC (3.80-5.40) m/uL Hgb (11.4-16.0) gm/dL Hct (34.0-46.0) % MCV (80.0-100.0) fL MCH (25.0-35.0) pg MCHC (31.0-37.0) g/dL RDW (11.5-15.5) % Plt Count (150-450) k/uL Neutrophils % % Lymphocytes % % Monocytes % % Eosinophils % % Basophils % % Neutrophils # (1.3-7.7) k/uL Lymphocytes # (1.0-4.8) k/uL Monocytes # (0-1.0) k/uL Eosinophils # (0-0.7) k/uL Basophils # (0-0.2) k/uL PT 10.7 (9.0-12.0) sec INR 1.1 (<1.1) APTT 23.6 (22.0-30.0) sec Sodium (137-145) mmol/L Potassium (3.5-5.1) mmol/L Chloride (98-107) mmol/L Carbon Dioxide (22-30) mmol/L Anion Gap mmol/L BUN (7-17) mg/dL Creatinine (0.52-1.04) mg/dL Est GFR (MDRD) Af Amer (>60 ml/min/1.73 sqM) Est GFR (MDRD) Non-Af (>60 ml/min/1.73 sqM) Glucose (74-99) mg/dL Plasma Lactic Acid Chidi (0.7-2.0) mmol/L Calcium (8.4-10.2) mg/dL Total Bilirubin (0.2-1.3) mg/dL AST (14-36) U/L ALT (9-52) U/L Alkaline Phosphatase (38-126) U/L Troponin I 0.019 (0.000-0.034) ng/mL Total Protein (6.3-8.2) g/dL Albumin (3.5-5.0) g/dL Urine Color Light Yellow Urine Appearance Clear (Clear) Urine pH 6.0 (5.0-8.0) Ur Specific [place] 1.002 (1.001-1.035) Urine Protein Negative (Negative) Urine Glucose (UA) Negative (Negative) Urine Ketones Negative (Negative) Urine Blood Negative (Negative) Urine Nitrite Negative (Negative) Urine Bilirubin Negative (Negative) Urine Urobilinogen <2.0 (<2.0) mg/dL Ur Leukocyte Esterase Small H (Negative) Urine RBC 2 (0-5) /hpf Urine WBC 3 (0-5) /hpf Urine Bacteria Rare H (None) /hpf Urine Mucus Rare H (None) /hpf Urine Yeast (Budding) Rare H (None) /hpf Disposition Clinical Impression: Pneumonia, Elevated liver function tests, SIRS (systemic inflammatory response syndrome) Disposition: ADMITTED IP TO THIS [facility] Condition: Fair Referrals: Reji Vaughan MD [Primary Care Provider] - 1-2 days
[2017-05-22 18:59] LABS: Basophils % (A) 0 %; CH 28.8; CHCM 34.4; Eosinophils # (A) 0.1 k/uL (0-0.7); Eosinophils % (A) 0 %; HCT 32.7 % (34.0-46.0); HGB 11.5 gm/dL (11.4-16.0); Luc # (Auto) 0.06; Luc % (Auto) 1; Lymphocytes # (A) 0.3 k/uL (1.0-4.8); Lymphocytes % (A) 3 %; MCH 29.6 pg (25.0-35.0); MCHC 35.2 g/dL (31.0-37.0); MCV 84.1 fL (80.0-100.0); Mean Platelet Volume 6.8; Monocytes # (A) 0.4 k/uL (0-1.0); Monocytes % (A) 3 %; Neutrophils # (A) 10.7 k/uL (1.3-7.7); Neutrophils % (A) 93 %; RBC 3.89 m/uL (3.80-5.40); RDW 14.5 % (11.5-15.5); WBC 11.5 k/uL (3.8-10.6); WBC (Perox) 11.32
[2017-05-22 19:03] LABS: INR 1.1 (<1.1); Partial Thromboplastin Time 23.6 sec (22.0-30.0); Prothrombin Time 10.7 sec (9.0-12.0)
[2017-05-22 19:06] LABS: ALT 311 U/L (9-52); Alkaline Phosphatase 255 U/L (38-126); Anion Gap 10 mmol/L; Blood Urea Nitrogen 15 mg/dL (7-17); Calcium 8.6 mg/dL (8.4-10.2); Carbon Dioxide 24 mmol/L (22-30); Chloride 97 mmol/L (98-107); Glucose 154 mg/dL (74-99); Non-African American GFR(MDRD) >60 (>60 ml/min/1.73 sqM); Potassium 3.9 mmol/L (3.5-5.1); Sodium 131 mmol/L (137-145); Total Bilirubin 1.9 mg/dL (0.2-1.3); Total Protein 6.6 g/dL (6.3-8.2)
[2017-05-22 19:12] LABS: AST 1268 U/L (14-36)
[2017-05-22 19:55] LABS: Appearance,Urine Clear (Clear); Bacteria,Urine Rare /hpf; Bilirubin,Urine Negative (Negative); Glucose,Urine (UA) Negative (Negative); Ketones,Urine Negative (Negative); Leukocyte Esterase,Urine Small (Negative); Mucus,Urine Rare /hpf; Nitrite,Urine Negative (Negative); Particle Count 1032; Protein,Urine Negative (Negative); RBC,Urine 2 /hpf (0-5); Specific Gravity,Urine 1.002 (1.001-1.035); UA Billing (MACRO vs. MICRO) MICRO; Urobilinogen,Urine <2.0 mg/dL (<2.0); WBC,Urine 3 /hpf (0-5)
--- NOTE | 2017-05-22 20:18 | XR ---
EXAMINATION TYPE: XR chest 2V DATE OF EXAM: 05/22/2017 COMPARISON: Prior chest x-ray 02/07/2017 HISTORY: Cough TECHNIQUE: Frontal and lateral views of the chest are obtained. FINDINGS: There is no pleural effusion, or pneumothorax seen. Patchy basilar density is present sim ilar to prior exam. The aorta is dense. The cardiac silhouette size is stable. Patient is rotated, l hany volumes are low. The osseous structures are stable, marked arthropathy present within the shoulde rs, there is remodeling possibly posttraumatic.. IMPRESSION: Findings may be indicative of a basilar pneumonia versus atelectasis. Follow-up recommen ded.
[2017-05-22] MEDS ORDERED: LEVOFLOXACIN 750MG-D5W PMX 750 MG in DEXTROSE/WATER 1 150ML.BAG IVPB STA (20:28)
[2017-05-22] MEDS ORDERED: ONDANSETRON 4 MG/2 ML VIAL IVP PRN (21:28)
[2017-05-22] MEDS ORDERED: NALOXONE 0.4 MG/ML 1 ML VIAL IV PRN (21:28)
[2017-05-22] MEDS ORDERED: ACETAMINOPHEN TAB 325 MG TAB PO PRN (21:28)
--- NOTE | 2017-05-22 23:03 | US ---
EXAM: US Abdomen Complete CLINICAL HISTORY: Reason: elevated liver enzymes TECHNIQUE: Real-time ultrasound of the abdomen (complete) with image documentation. COMPARISON: Ultrasound 01/24/17 FINDINGS: Liver: Liver length is 13.0 cm No intrahepatic bile duct dilation. Gallbladder: Gallbladder with 2 mm echogenic focus of the gallbladder wall may be adherent stone versus polyp. Negative Ulloa's sign. Gallbladder Wall within normal limits 0.2 cm. No free fluid. Common bile duct: CBD is normal 0.8 cm No stones. No dilation. Pancreas: Pancreas tail obscured by bowel gas, visualized portions within normal limits. Kidneys: Right Kidney: 9.2 x 4.6 x 5.2 cm. 7 mm anechoic focus likely cyst. No stones. No hydronephrosis. Difficult exam due to overlying bowel gas. IMPRESSION: 2 mm gallbladder polyp versus adherent stone. No acute cholecystitis. No biliary obstruction.
[2017-05-23] MEDS: SODIUM CHLORIDE 0.9% 1,000 ML IV SCH ×3 (00:54→23:15)
[2017-05-23 08:40] LABS: Basophils % (A) 0 %; CH 28.3; CHCM 33.1; Eosinophils # (A) 0.1 k/uL (0-0.7); Eosinophils % (A) 2 %; HCT 30.5 % (34.0-46.0); HDW 2.65; HGB 10.5 gm/dL (11.4-16.0); Luc # (Auto) 0.05; Luc % (Auto) 1; Lymphocytes # (A) 0.6 k/uL (1.0-4.8); Lymphocytes % (A) 11 %; MCH 29.5 pg (25.0-35.0); MCHC 34.4 g/dL (31.0-37.0); MCV 85.7 fL (80.0-100.0); Mean Platelet Volume 6.8; Monocytes # (A) 0.2 k/uL (0-1.0); Monocytes % (A) 4 %; Neutrophils # (A) 4.1 k/uL (1.3-7.7); Neutrophils % (A) 81 %; RBC 3.56 m/uL (3.80-5.40); RDW 14.6 % (11.5-15.5); WBC (Perox) 5.48
[2017-05-23 08:57] LABS: ALT 361 U/L (9-52); AST 453 U/L (14-36); Alkaline Phosphatase 204 U/L (38-126); Amylase <30 U/L (30-110); Anion Gap 10 mmol/L; Blood Urea Nitrogen 11 mg/dL (7-17); Calcium 8.1 mg/dL (8.4-10.2); Carbon Dioxide 21 mmol/L (22-30); Chloride 106 mmol/L (98-107); Glucose 118 mg/dL (74-99); Non-African American GFR(MDRD) >60 (>60 ml/min/1.73 sqM); Potassium 3.4 mmol/L (3.5-5.1); Sodium 137 mmol/L (137-145); Total Protein 5.8 g/dL (6.3-8.2)
[2017-05-23 09:16] VITALS: BMI 18.4
--- NOTE | 2017-05-23 09:20 | P.CONS ---
History of Present Illness - Reason for Consult Consult date: 05/23/17 Elevated liver enzymes Requesting physician: Jozef Bay - History of Present Illness 87-year-old female with a history of hypertension, chronic UTI ESBL, Parkinson's , hypertension, and degenerative joint disease. Presents with elevated liver enzymes, fever T-max 100.5, and confusion. Patient was started on Macrobid yesterday by her PCP had taken 3 doses. Patient was evaluated by the GI service in January 2017 for similar presentation. At that time liver enzyme elevation was attributed to sepsis and UTI. Liver enzymes improved with treatment of UTI. Ultrasound January as well as on admission reported normal CBD. No gallstones mentioned on January ultrasound however ultrasound yesterday reported a 2 mm gallbladder polyp versus adherent stone. No biliary obstruction. CBD 0.8 cm. No focal liver lesion mentioned. Patient denies abdominal pain. Total bilirubin 1.9. AST 1268. ALT 311. Alkaline phosphatase 255. Hepatitis panel negative in January. Liver enzymes January 2017 total bilirubin 1.4-2.8. AST 196-1448. ALT 99-657. Alkaline phosphatase 136-297. E. coli urine culture in January. Preliminary urine culture pending. Urinalysis small leukocyte esterase. 3 urine WBC. Rare bacteria. Rare urine yeast. IV antibiotics started. Tolerating diet. No recurrence of fever. Review of Systems Obtained from medical records and nursing staff patient's memory is poor. Constitutional: Denies fever, chills, sweats, weight gain, or loss. HEENT: Negative for migraines, blurred vision or loss, earaches, drainage, tinnitus, oral mucosal lesions, dysphagia, or odynophagia. CARDIAC: Hypertension. Negative for chest pain, arrhythmias, or palpitation. RESPIRATORY: Negative for shortness of breath, hemoptysis, cough, or sputum production. GI: See HPI for pertinent findings. : Chronic UTI. Negative for hematuria, urgency, frequency, polyuria, or dysuria. GYNc: Denies possibility of . Negative vaginal discharge. MUSCULOSKELETAL: Parkinson's. Degenerative joint disease. NEUROLOGIC: Negative for stroke or TIA. ENDOCRINE: Negative for thyroid problems. SKIN: Negative for rash or itching. PSYCHIATRIC: Negative history for depression and anxiety All systems: negative (See HPI) Past Medical History Past Medical History: Hypertension, Musculoskeletal Disorder, Neurologic Disorder, Osteoarthritis (OA) Additional Past Medical History / Comment(s): 06/2016 Fall with R humerous and pelvic fracture-no surgical intervention, PARKINSONS, constipation. History of Any Multi-Drug Resistant Organisms: ESBL Year Discovered:: 02/08/17 MDRO Source:: ESBL URINE E.COLI Past Surgical History: Tonsillectomy Additional Past Surgical History / Comment(s): hip surgery (nail put in) HIP FRACTURE, PELVIS FRACTURE. Past Anesthesia/Blood Transfusion Reactions: No Reported Reaction Additional Past Anesthesia/Blood Transfusion Reaction / Comm: Pt's only surgery was a tonsillectomy-no anesthesia was used. Past Psychological History: No Psychological Hx Reported Additional Psychological History / Comment(s): Pt's adult son resides with her. He assists her with many things. She ambulates with a walker. She has a couple of women that she hired to assist her with bathing. Her son takes her to appts. Smoking Status: Never smoker Past Alcohol Use History: None Reported Past Drug Use History: None Reported - Past Family History Father History Unknown: Yes Additional Family Medical History / Comment(s): Father in his 60's. Mother Family Medical History: Cancer Additional Family Medical History / Comment(s): Mother had breast cancer. She at the age of 79yrs. Medications and Allergies Home Medications Medication Instructions Recorded Confirmed Type amLODIPine [Norvasc] 2.5 mg PO HS 10/08/16 05/22/17 History Multivitamins, Thera [Multivitamin 1 tab PO DAILY 02/04/17 05/22/17 History (formulary)] Nitrofurantoin Monohyd/M-Cryst 100 mg PO Q12HR 05/22/17 05/22/17 History [Macrobid] Allergies Allergy/AdvReac Type Severity Reaction Status Date / Time No Known Allergies Allergy Verified 05/22/17 22:50 Physical Exam Vitals: Vital Signs Temp Pulse Pulse Resp BP BP Pulse Ox 05/23/17 07:00 98.0 F 76 20 144/70 95 05/22/17 23:00 97.3 F L 70 22 113/60 97 05/22/17 21:04 77 17 171/74 98 05/22/17 20:14 97.9 F 84 19 163/70 98 05/22/17 18:55 97.2 F L 88 18 159/72 97 05/22/17 17:56 100.5 F H 104 H 16 130/58 90 L Intake and Output 05/22/17 05/23/17 05/23/17 22:59 06:59 14:59 Output Total 625 300 Balance -625 -300 Output: Urine 625 300 Other: Voiding Method Indwelling Catheter Indwelling Catheter Weight 51.256 kg 40 kg General appearance: The patient is alert, oriented, in no acute distress. HET: Head is normocephalic and atraumatic. Pupils are equal and reactive. Oropharynx is clear without lesions. Neck: Supple without lymphadenopathy. Trachea midline. Heart: S1 S2. Regular rate and rhythm. Lungs: No crackles or wheezes are heard. Abdomen: Soft, nontender, nondistended with bowel sounds. No peritoneal signs. No palpable organomegaly or masses. Extremities: Normal skin color and turgor. No cyanosis, rash, ulceration, clubbing, or edema. Radial and pedal pulses are 2/4 bilaterally. Neurological: No focal deficits. Strength and sensation are grossly intact. Results CBC & Chem 7: 05/23/17 08:13 05/22/17 18:40 Labs: Abnormal Lab Results - Last 24 Hours (Table) 05/22/17 05/22/17 05/22/17 Range/Units 18:40 18:40 19:41 WBC 11.5 H (3.8-10.6) k/uL RBC (3.80-5.40) m/uL Hgb (11.4-16.0) gm/dL Hct 32.7 L (34.0-46.0) % Neutrophils # 10.7 H (1.3-7.7) k/uL Lymphocytes # 0.3 L (1.0-4.8) k/uL Sodium 131 L (137-145) mmol/L Chloride 97 L (98-107) mmol/L Creatinine 0.37 L (0.52-1.04) mg/dL Glucose 154 H (74-99) mg/dL Total Bilirubin 1.9 H (0.2-1.3) mg/dL AST 1268 H (14-36) U/L ALT 311 H (9-52) U/L Alkaline Phosphatase 255 H (38-126) U/L Albumin 3.4 L (3.5-5.0) g/dL Ur Leukocyte Esterase Small H (Negative) Urine Bacteria Rare H (None) /hpf Urine Mucus Rare H (None) /hpf Urine Yeast (Budding) Rare H (None) /hpf 05/23/17 Range/Units 08:13 WBC (3.8-10.6) k/uL RBC 3.56 L (3.80-5.40) m/uL Hgb 10.5 L (11.4-16.0) gm/dL Hct 30.5 L (34.0-46.0) % Neutrophils # (1.3-7.7) k/uL Lymphocytes # 0.6 L (1.0-4.8) k/uL Sodium (137-145) mmol/L Chloride (98-107) mmol/L Creatinine (0.52-1.04) mg/dL Glucose (74-99) mg/dL Total Bilirubin (0.2-1.3) mg/dL AST (14-36) U/L ALT (9-52) U/L Alkaline Phosphatase (38-126) U/L Albumin (3.5-5.0) g/dL Ur Leukocyte Esterase (Negative) Urine Bacteria (None) /hpf Urine Mucus (None) /hpf Urine Yeast (Budding) (None) /hpf Microbiology - Last 24 Hours (Table) 05/22/17 19:41 Urine Culture - Preliminary Urine,Catheterized US - abdomen: report reviewed (Dr. Vaughn) Assessment and Plan (1) Elevated liver enzymes Narrative/Plan: 87-year-old female with a history of recurrent E. coli ESBL UTI presents with fever confusion elevated liver enzymes. Similar presentation in January 2017 improved with treatment of UTI. Ultrasound reported possible 2 mm gallbladder polyp possible adherent stone without abdominal pain and significant biliary dilatation. Elevated liver enzymes could be on the basis of sepsis UTI possible medications other considerations is choledocholithiasis. Status: Acute Plan: 1. Await repeat liver function tests if improved continue supportive measures and close observation. If liver enzymes do not improve will consider MRI versus ERCP based on clinical course. For now continue with IV antibiotics diet as tolerated. We'll follow closely with you. Thank you for this kind referral and the opportunity to participate in the care of your patient. This consultation was discussed with Dr. Vaughn. The impression and plan of care have been directed as dictated.
[2017-05-23 09:23] LABS: Hepatitis B Surface Ag Index 0.06
[2017-05-23 09:29] LABS: Hepatitis B Core IgM Index 0.04
[2017-05-23 09:41] LABS: Hepatitis C Virus IgG Ab Negative (Negative); Hepatitis C Virus IgG Index 0.11
[2017-05-23] MEDS: AMPICILLIN-SULBACTAM 1.5 GM in SODIUM CHLORIDE 0.9% 50 ML IVPB SCH ×2 (12:42→23:10)
--- NOTE | 2017-05-23 15:01 | P.HPIM ---
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 Patient was started on antibiotics by primary care physician at the current time for her UTI. Patient had ESBL E. coli in the past. Patient was given levofloxacin with improvement in the WBC count here in the hospital. I'm unable to get much of the history from the patient although patient denied any dysuria patient denied any nausea or vomiting. Denied any diarrhea. Patient denied any cough. Chest x-ray showed some atelectasis but I do not believe pneumonia is contributing to her confusion. It can be urinary tract infection. Considering her complex history and ESBL E. coli, consulting infectious disease. As per the patient's caregiver her mental status is now at her baseline. Patient when she came in is found to have elevated bilirubin along with elevated AST and ALT. Etiology for her elevated liver enzymes is not clear at this time. In his panel is negative and gastric body evaluate the patient. And they are recommending monitoring liver enzymes. Patient is presently started on Zosyn empirically. May need either ertapenem or fosfomycin upon discharge. Review of Systems All other systems are negative except those mentioned above and most of the systems we are unable to obtain due to her mental status. Past Medical History Past Medical History: Hypertension, Musculoskeletal Disorder, Neurologic Disorder, Osteoarthritis (OA) Additional Past Medical History / Comment(s): 06/2016 Fall with R humerous and pelvic fracture-no surgical intervention, PARKINSONS, constipation. History of Any Multi-Drug Resistant Organisms: ESBL Date of last positivie culture/infection: 02/08/17 MDRO Source:: ESBL URINE E.COLI Past Surgical History: Tonsillectomy Additional Past Surgical History / Comment(s): hip surgery (nail put in) HIP FRACTURE, PELVIS FRACTURE. Past Anesthesia/Blood Transfusion Reactions: No Reported Reaction Additional Past Anesthesia/Blood Transfusion Reaction / Comment(s): Pt's only surgery was a tonsillectomy-no anesthesia was used. Past Psychological History: No Psychological Hx Reported Additional Psychological History / Comment(s): Pt's adult son resides with her. He assists her with many things. She ambulates with a walker. She has a couple of women that she hired to assist her with bathing. Her son takes her to appts. Smoking Status: Never smoker Past Alcohol Use History: None Reported Past Drug Use History: None Reported - Past Family History Father History Unknown: Yes Additional Family Medical History / Comment(s): Father in his 60's. Mother Family Medical History: Cancer Additional Family Medical History / Comment(s): Mother had breast cancer. She at the age of 79yrs. Medications and Allergies Home Medications Medication Instructions Recorded Confirmed Type amLODIPine [Norvasc] 2.5 mg PO HS 10/08/16 05/22/17 History Multivitamins, Thera [Multivitamin 1 tab PO DAILY 02/04/17 05/22/17 History (formulary)] Nitrofurantoin Monohyd/M-Cryst 100 mg PO Q12HR 05/22/17 05/22/17 History [Macrobid] Allergies Allergy/AdvReac Type Severity Reaction Status Date / Time No Known Allergies Allergy Verified 05/22/17 22:50 Physical Exam Vitals: Vital Signs Temp Pulse Pulse Resp BP BP Pulse Ox 05/23/17 07:00 98.0 F 76 20 144/70 95 05/22/17 23:00 97.3 F L 70 22 113/60 97 05/22/17 21:04 77 17 171/74 98 05/22/17 20:14 97.9 F 84 19 163/70 98 05/22/17 18:55 97.2 F L 88 18 159/72 97 05/22/17 17:56 100.5 F H 104 H 16 130/58 90 L Intake and Output 05/22/17 05/23/17 05/23/17 22:59 06:59 14:59 Output Total 625 300 Balance -625 -300 Output: Urine 625 300 Other: Voiding Method Indwelling Catheter Indwelling Catheter Indwelling Catheter Weight 51.256 kg 40 kg 40 kg Patient Weight 05/24/17 06:59 Weight 40 kg PHYSICAL EXAMINATION: GENERAL: The patient is alert and oriented x1-2 which is her baseline, not in any acute distress. Thin built HEENT: Pupils are round and equally reacting to light. EOMI. No scleral icterus. No conjunctival pallor. Normocephalic, atraumatic. No pharyngeal erythema. No thyromegaly. CARDIOVASCULAR: S1 and S2 present. No murmurs, rubs, or gallops. PULMONARY: Chest is clear to auscultation, no wheezing or crackles. ABDOMEN: Soft, nontender, nondistended, normoactive bowel sounds. No palpable organomegaly. MUSCULOSKELETAL: No joint swelling or deformity. EXTREMITIES: No cyanosis, clubbing, or pedal edema. NEUROLOGICAL: Gross neurological examination did not reveal any focal deficits. SKIN: No rashes. Results CBC & Chem 7: 05/23/17 08:13 05/23/17 08:11 Labs: Abnormal Lab Results - Last 24 Hours (Table) 05/22/17 05/22/17 05/22/17 Range/Units 18:40 18:40 19:41 WBC 11.5 H (3.8-10.6) k/uL RBC (3.80-5.40) m/uL Hgb (11.4-16.0) gm/dL Hct 32.7 L (34.0-46.0) % Neutrophils # 10.7 H (1.3-7.7) k/uL Lymphocytes # 0.3 L (1.0-4.8) k/uL Sodium 131 L (137-145) mmol/L Potassium (3.5-5.1) mmol/L Chloride 97 L (98-107) mmol/L Carbon Dioxide (22-30) mmol/L Creatinine 0.37 L (0.52-1.04) mg/dL Glucose 154 H (74-99) mg/dL Calcium (8.4-10.2) mg/dL Total Bilirubin 1.9 H (0.2-1.3) mg/dL AST 1268 H (14-36) U/L ALT 311 H (9-52) U/L Alkaline Phosphatase 255 H (38-126) U/L Total Protein (6.3-8.2) g/dL Albumin 3.4 L (3.5-5.0) g/dL Amylase (30-110) U/L Ur Leukocyte Esterase Small H (Negative) Urine Bacteria Rare H (None) /hpf Urine Mucus Rare H (None) /hpf Urine Yeast (Budding) Rare H (None) /hpf 05/23/17 05/23/17 Range/Units 08:11 08:13 WBC (3.8-10.6) k/uL RBC 3.56 L (3.80-5.40) m/uL Hgb 10.5 L (11.4-16.0) gm/dL Hct 30.5 L (34.0-46.0) % Neutrophils # (1.3-7.7) k/uL Lymphocytes # 0.6 L (1.0-4.8) k/uL Sodium (137-145) mmol/L Potassium 3.4 L (3.5-5.1) mmol/L Chloride (98-107) mmol/L Carbon Dioxide 21 L (22-30) mmol/L Creatinine 0.38 L (0.52-1.04) mg/dL Glucose 118 H (74-99) mg/dL Calcium 8.1 L (8.4-10.2) mg/dL Total Bilirubin (0.2-1.3) mg/dL AST 453 H (14-36) U/L ALT 361 H (9-52) U/L Alkaline Phosphatase 204 H (38-126) U/L Total Protein 5.8 L (6.3-8.2) g/dL Albumin 2.9 L (3.5-5.0) g/dL Amylase <30 L (30-110) U/L Ur Leukocyte Esterase (Negative) Urine Bacteria (None) /hpf Urine Mucus (None) /hpf Urine Yeast (Budding) (None) /hpf Microbiology - Last 24 Hours (Table) 05/22/17 19:41 Urine Culture - Preliminary Urine,Catheterized Thrombosis Risk Factor Assmnt - Choose All That Apply Each Factor Represents 1 point: Serious lung disease incl. pneumonia (< 1month) Other Risk Factors: Yes Each Risk Factor Represents 2 Points: Patient confined to bed Each Risk Factor Represents 3 Points: Age 75 years or older Other congenital or acquired thrombophilia - If yes, enter type in comment: No Thrombosis Risk Factor Assessment Total Risk Factor Score: 6 Thrombosis Risk Factor Assessment Level: High Risk Assessment and Plan Plan: #1 acute toxic encephalopathy: Possibly secondary to urinary tract infection for which patient is an above-mentioned antibiotics. Awaiting urine cultures. My suspicion is low for pneumonia. #2 elevated liver enzymes: Secondary to possibly sepsis monitor liver enzymes. Rest of the workup is negative #3 Parkinson's along with parkinsonian as well as senile dementia.. #4 degenerative joint disease. #5 essential hypertension. Patient had a history of swallow problems in the past.
[2017-05-23 16:41] LABS: Amorphous Sediment,Urine Occasional /hpf; Appearance,Urine Clear (Clear); Bacteria,Urine Occasional /hpf; Bilirubin,Urine Negative (Negative); Glucose,Urine (UA) Negative (Negative); Ketones,Urine Negative (Negative); Leukocyte Esterase,Urine Small (Negative); Mucus,Urine Rare /hpf; Nitrite,Urine Negative (Negative); PH, Urine 5.5 (5.0-8.0); Particle Count 3317; Protein,Urine Negative (Negative); RBC,Urine 2 /hpf (0-5); Specific Gravity,Urine 1.014 (1.001-1.035); UA Billing (MACRO vs. MICRO) MICRO; Urobilinogen,Urine <2.0 mg/dL (<2.0); WBC,Urine 7 /hpf (0-5)
--- NOTE | 2017-05-24 06:55 | CONS ---
DATE OF SERVICE: 05/23/2017 REASON FOR CONSULTATION: Urinary tract infection. HISTORY OF PRESENT ILLNESS: The patient is an 87-year-old female who is well known to my service from previous admissions to this and outside facilities. The patient does have a history of chronic urinary tract infection. Previous cultures have been positive for ESBL E. coli, not in the last few admissions though. The patient did follow with Urology in the outpatient setting not from the area and apparently the patient did have indwelling Blank catheter for possible retention. It is not clear when the last time the Blank catheter was changed. Patient was brought into the ER by the son last evening with chief complaints of increasing confusion which is usually a symptom of when the patient started having urinary tract infection. In the ER the patient did have a low grade fever of 100.5. The patient's quite count was slightly elevated at 11.5. UA was slightly positive. Patient also has elevated liver enzymes. Patient did receive a dose of Levofloxacin. However, antibiotics have been adjusted to Unasyn 1.5 q.8. I was asked to see the patient for further recommendations regarding antibiotic therapy. The patient's white count has normalized this morning. She also has elevated liver enzymes with bilirubin of 1.9 and AST of 1268 and AST of 311 though has come down this morning to 1.0, 453 and 361 respectively. The patient did have hepatitis serology that is negative. An ultrasound suspicious for possible small stone, but no evidence of any cholecystitis. The patient was sleepy at the time of my evaluation; however, she was arousable. She was able to recognize myself. When asked specifically she denied having any headache, chest pain, shortness of breath, or any cough. No history of any nausea, vomiting or any diarrhea. However, overall history remains to be be limited because of underlying age and possible dementia. Review of systems could not reliably obtained but the positive points as mentioned in the HPI. 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 PAST SURGICAL HISTORY: Tonsillectomy, hip fracture repair. SOCIAL HISTORY: No history of smoking, drinking or drug use. Currently at home being taken care of by son. FAMILY HISTORY: Mother with history of cancer. Does not remember the type of cancer. She was unable to provide any further information to me. ALLERGIES: No known drug allergies. Medications currently include the patient is on Tylenol, Unasyn, Narcan, Zofran , and IV fluids. On examination, blood pressure is 144/70 with pulse of 76, temperature 98. She is 95% on room air. General description is an elderly female lying in bed in no distress. No tachypnea or accessory muscles of respiration use. HEENT: Examination shows slightly pallor. There is no scleral icterus. Oral mucous membrane is dry. NECK: Trachea central. There is no thyromegaly. LUNGS: Unlabored breathing. Clear to auscultation anteriorly. HEART: S1, S2 regular rate and rhythm. No abnormal sound. ABDOMEN: Soft, no significant tenderness. No guarding. No rigidity, no organomegaly. EXTREMITIES: No edema of feet. SKIN: No rashes or masses palpable. NEUROLOGICAL: Patient is awake, alert, oriented x1. Mood and affect is normal. LABS: Hemoglobin 10.5, white count of 5. Admission white count of 11.5. BUN of 11, creatinine of 0.38. Liver enzymes elevated on admission though improved. UA showed small leukocyte esterase and 3 WBC with bacteria. Cultures currently pending. Hepatitis serology currently negative. Ultrasound report as mentioned above. DIAGNOSTIC IMPRESSION: Patient admitted to the hospital with low grade fever and elevated white count and confusion in a patient who does have history of recurrent urinary tract infection with a question of possible catheter associated urinary tract infection. However, urine is not significantly positive though the patient does have elevated liver enzymes, but no significant gastrointestinal symptoms and abdomen was soft on clinical examination. There was no evidence of any pneumonia clinically leaving behind the urinary tract infection as the possible source of her confusion and fever. PLAN: 1. Will change her Blank catheter and obtain a urine culture from a new Blank. 2. Will keep the patient on Unasyn at this point in view of overall improvement in her mentation as well as resolution fo fever and normalization of the white count. 3. Gentle IV fluid. 4. We will follow up on her clinical condition and cultures to further adjust medication if needed. Thank you for this consultation. Will follow this patient along with you. VALERY
[2017-05-24] MEDS: AMPICILLIN-SULBACTAM 1.5 GM in SODIUM CHLORIDE 0.9% 50 ML IVPB SCH ×2 (08:28→15:52)
[2017-05-24 08:42] LABS: Basophils % (A) 0 %; CH 28.2; CHCM 32.9; Eosinophils # (A) 0.2 k/uL (0-0.7); Eosinophils % (A) 4 %; HCT 33.6 % (34.0-46.0); HDW 2.67; HGB 11.3 gm/dL (11.4-16.0); Luc % (Auto) 2; Lymphocytes # (A) 1.1 k/uL (1.0-4.8); Lymphocytes % (A) 19 %; MCH 29.1 pg (25.0-35.0); MCHC 33.7 g/dL (31.0-37.0); MCV 86.2 fL (80.0-100.0); Mean Platelet Volume 7.1; Monocytes # (A) 0.3 k/uL (0-1.0); Monocytes % (A) 5 %; Neutrophils # (A) 4.3 k/uL (1.3-7.7); Neutrophils % (A) 71 %; RDW 14.5 % (11.5-15.5); WBC 6.1 k/uL (3.8-10.6); WBC (Perox) 6.06
[2017-05-24 08:55] LABS: Anion Gap 9 mmol/L; Blood Urea Nitrogen 7 mg/dL (7-17); Calcium 8.3 mg/dL (8.4-10.2); Carbon Dioxide 23 mmol/L (22-30); Chloride 105 mmol/L (98-107); Glucose 106 mg/dL (74-99); Magnesium 1.9 mg/dL (1.6-2.3); Non-African American GFR(MDRD) >60 (>60 ml/min/1.73 sqM); Potassium 3.4 mmol/L (3.5-5.1); Sodium 137 mmol/L (137-145)
--- NOTE | 2017-05-24 10:02 | P.PN ---
Subjective Principal diagnosis: Elevated liver enzymes 87-year-old female admitted with elevated liver enzymes possible recurrent acute on chronic UTI. No pain. Afebrile. Liver enzymes improved yesterday. Caregiver present at bedside this morning. Objective - Vital Signs Vital signs: Vital Signs Temp 97.8 F 05/24/17 07:00 Pulse 73 05/24/17 07:00 Resp 18 05/24/17 07:00 BP 157/68 05/24/17 07:00 Pulse Ox 94 L 05/24/17 07:00 Intake & Output 05/23/17 05/24/17 05/24/17 18:59 06:59 18:59 Intake Total 50 Output Total 1900 Balance -1850 Weight 40 kg Intake: Intake, IV Titration 50 Amount Ampicillin-Sulbactam 1.5 50 gm In Sodium Chloride 0.9 % 50 ml @ 100 mls/hr IVPB Q8HR [facility] Rx#:[id number] Output: Urine 1900 Other: Voiding Method Indwelling Catheter Indwelling Catheter # Bowel Movements 1 0 - Exam General appearance: The patient is alert, oriented, in no acute distress. HET: Head is normocephalic and atraumatic. Pupils are equal and reactive. Oropharynx is clear without lesions. Neck: Supple without lymphadenopathy. Trachea midline. Heart: S1 S2. Regular rate and rhythm. Lungs: No crackles or wheezes are heard. Abdomen: Soft, nontender, nondistended with bowel sounds. No peritoneal signs. No palpable organomegaly or masses. Extremities: Normal skin color and turgor. No cyanosis, rash, ulceration, clubbing, or edema. Radial and pedal pulses are 2/4 bilaterally. Neurological: No focal deficits. Strength and sensation are grossly intact. - Labs CBC & Chem 7: 05/24/17 08:08 05/24/17 08:08 Labs: Abnormal Lab Results - Last 24 Hours (Table) 05/23/17 05/24/17 05/24/17 Range/Units 16:00 08:08 08:08 Hgb 11.3 L (11.4-16.0) gm/dL Hct 33.6 L (34.0-46.0) % Potassium 3.4 L (3.5-5.1) mmol/L Creatinine 0.43 L (0.52-1.04) mg/dL Glucose 106 H (74-99) mg/dL Calcium 8.3 L (8.4-10.2) mg/dL Ur Leukocyte Esterase Small H (Negative) Urine WBC 7 H (0-5) /hpf Amorphous Sediment Occasional H (None) /hpf Urine Bacteria Occasional H (None) /hpf Urine Mucus Rare H (None) /hpf Urine Yeast (Budding) Occasional H (None) /hpf Microbiology - Last 24 Hours (Table) 05/23/17 16:00 Urine Culture - Preliminary Urine,Catheterized 05/22/17 18:40 Blood Culture - Preliminary Blood No Growth after 24 hours Assessment and Plan (1) Elevated liver enzymes Narrative/Plan: 87-year-old female with a history of recurrent E. coli ESBL UTI presents with fever confusion elevated liver enzymes. Similar presentation in January 2017 improved with treatment of UTI. Ultrasound reported possible 2 mm gallbladder polyp possible adherent stone without abdominal pain and significant biliary dilatation. Elevated liver enzymes could be on the basis of sepsis UTI possible medications. Status: Acute Plan: 1. Repeat liver chemistries this morning are pending however if they continue to improve continue supportive measures with no further GI workup. Bedside marketing ambassador reports patient's son to take [id number] supplements including tumeric cinnamon and vinegar daily; possible these supplementations could have an effect on her liver chemistries. Assessment and plan of care discussed with Dr. Vaughn
[2017-05-24 13:46] LABS: ALT 288 U/L (9-52); AST 141 U/L (14-36); Alkaline Phosphatase 194 U/L (38-126); Total Bilirubin 0.3 mg/dL (0.2-1.3); Total Protein 5.7 g/dL (6.3-8.2)
[2017-05-24] MEDS: CARBIDOPA-LEVODOPA 25-100 MG 1 EACH TAB PO SCH ×2 (15:52→22:14)
[2017-05-24] MEDS: amLODIPine 2.5 MG TAB PO SCH (15:53)
--- NOTE | 2017-05-24 17:23 | P.PN ---
Subjective Date of service 05/24/2017 Progress note being dictated for Dr. oJnes. Interval history: This is an 87-year-old female with Parkinson's, senile dementia and multiple other medical issues admitted with acute toxic encephalopathy, suspect secondary to recurrent UTI. Urine cultures pending. Blank catheter changed yesterday. Maintained on Unasyn as per infectious disease. Caregiver states: Catheter changed monthly at home by home care. Elevated, improving LFTs, suspect related to home [id number] supplements, tumoric, vinegar. Afebrile. Objective - Vital Signs Vital signs: Vital Signs Temp 96.5 F L 05/24/17 15:00 Pulse 99 05/24/17 16:27 Resp 16 05/24/17 16:27 BP 187/95 05/24/17 15:00 Pulse Ox 95 05/24/17 15:00 Intake & Output 05/23/17 05/24/17 05/24/17 18:59 06:59 18:59 Intake Total 50 Output Total 1900 2800 Balance -1850 -2800 Weight 40 kg 40 kg Intake: Intake, IV Titration 50 Amount Ampicillin-Sulbactam 1.5 50 gm In Sodium Chloride 0.9 % 50 ml @ 100 mls/hr IVPB Q8HR [facility] Rx#:[id number] Output: Urine 1900 2800 Other: Voiding Method Indwelling Catheter Indwelling Catheter Indwelling Catheter # Bowel Movements 1 0 0 - Exam GENERAL: The patient is alert and oriented x1, baseline, no acute distress. HEENT: Pupils are round and equally reacting to light. EOMI. No scleral icterus. No conjunctival pallor. Normocephalic, atraumatic. No pharyngeal erythema. No thyromegaly. CARDIOVASCULAR: S1 and S2 present. No murmurs, rubs, or gallops. No edema. PULMONARY: Chest is clear to auscultation, no wheezing or crackles. ABDOMEN: Soft, nontender, nondistended, normoactive bowel sounds. No palpable organomegaly. MUSCULOSKELETAL: No joint swelling or deformity. EXTREMITIES: No cyanosis, clubbing, or edema NEUROLOGICAL: Gross neurological examination did not reveal any focal deficits. SKIN: No rashes. Microbiology 05/23/17 16:00 Urine,Catheterized Urine Culture - Preliminary 05/22/17 18:40 Blood Blood Culture - Preliminary No Growth after 24 hours 05/22/17 19:41 Urine,Catheterized Urine Culture - Preliminary - Labs CBC & Chem 7: 05/24/17 08:08 05/24/17 08:08 Labs: Abnormal Lab Results - Last 24 Hours (Table) 05/24/17 05/24/17 Range/Units 08:08 08:08 Hgb 11.3 L (11.4-16.0) gm/dL Hct 33.6 L (34.0-46.0) % Potassium 3.4 L (3.5-5.1) mmol/L Creatinine 0.43 L (0.52-1.04) mg/dL Glucose 106 H (74-99) mg/dL Calcium 8.3 L (8.4-10.2) mg/dL AST 141 H (14-36) U/L ALT 288 H (9-52) U/L Alkaline Phosphatase 194 H (38-126) U/L Total Protein 5.7 L (6.3-8.2) g/dL Albumin 2.9 L (3.5-5.0) g/dL Microbiology - Last 24 Hours (Table) 05/23/17 16:00 Urine Culture - Preliminary Urine,Catheterized 05/22/17 18:40 Blood Culture - Preliminary Blood No Growth after 24 hours Assessment and Plan Plan: #1 acute toxic encephalopathy: Possibly secondary to urinary tract infection, possible catheter associated UTI, in a patient with history of recurrent E. coli ESBL UTI .low suspicion for pneumonia. #2 elevated liver enzymes: Secondary to possibly sepsis, 2 mm gallbladder polyp versus adherent stone-without abdominal pain, suspect related to daily consumption of [id number] supplements including tumoric, vinegar. #3 Parkinson's along with parkinsonian as well as senile dementia. #4 degenerative joint disease. #5 essential hypertension. #6 hypokalemia Patient had a history of swallow problems in the past. Plan: Continue current medication regime ,monitoring and symptomatic treatment. Gentle IV fluid hydration. Follow cultures closely. Unasyn as per infectious disease. Complaining of right foot pain, new onset per caregiver at bedside, x-ray ordered. Further recommendations to follow. The impression and plan of care has been dictated as directed. : I performed a H&P examination of this patient and discussed the same with the dictator. I agree with the dictator's note. Any additional findings/opinions/ etc. will be noted.
--- NOTE | 2017-05-24 20:03 | XR ---
EXAMINATION TYPE: XR foot complete RT DATE OF EXAM: 05/24/2017 COMPARISON: NONE HISTORY: New onset right foot pain TECHNIQUE: 3 views FINDINGS: There is marked generalized osteopenia and marked atherosclerotic vascular calcifications. There is no evident fracture and no malalignment. No focal skeletal lesion or focal soft tissue findi ng. Multifocal moderate osteoarthritic changes are noted, but they are markedly severe in degree at the s econd MTP joint. IMPRESSION: No acute findings.
[2017-05-25] MEDS: AMPICILLIN-SULBACTAM 1.5 GM in SODIUM CHLORIDE 0.9% 50 ML IVPB SCH ×3 (00:23→15:53)
[2017-05-25] MEDS: CARBIDOPA-LEVODOPA 25-100 MG 1 EACH TAB PO SCH ×2 (08:04→15:54)
[2017-05-25] MEDS ORDERED: HEPARIN SODIUM,PORCINE 5,000 UNIT/ML 1 ML VIAL SQ SCH (10:45)
--- NOTE | 2017-05-25 10:46 | PN ---
DATE OF SERVICE: 05/24/2017 Reason for followup is fever and question of urinary tract infection. INTERVAL HISTORY: The patient is afebrile. She has been breathing comfortably. The patient was being fed by the caregiver. Had ( ) evaluation earlier this afternoon. The patient was unable to provide any reliable history though the caregiver did mention the patient did have some choking and coughing after the patient is being fed. No nausea, vomiting has been noticed or any diarrhea. Blank catheter has been changed as requested yesterday. On examination, her blood pressure is 187/95 with a pulse of 99, temperature 96.5. She is 95% on room air. General description is a elderly female lying in bed in no distress. RESPIRATORY SYSTEM: Unlabored breathing with coarse breath sounds bilaterally ( ) wheeze. HEART: S1 and S2 regular rate and rhythm. ABDOMEN: Soft, no tenderness. LABS: Hemoglobin is 11.3, white count 6.1. BUN of 7, creatinine 0.43. Liver enzymes have improved. Repeat urine is so far negative. Initial urine cultures negative. DIAGNOSTIC IMPRESSION AND PLAN: The patient admitted to the hospital with mental status change. She has a low grade fever in a patient who did have history of recurrent urinary tract infection and the patient's urine ( ) significantly positive; however, the patient noticed to have slight wheezing and the caregiver did mention possible choking and coughing after being fed with a question of possible aspiration pneumonitis ( ). Chest x-ray will be repeated and the patient will be continued Unasyn to which her fever has responded. Continue supportive care. VALERY
--- NOTE | 2017-05-25 13:09 | XR ---
EXAMINATION TYPE: XR chest 1V portable DATE OF EXAM: 05/25/2017 Comparison: 05/22/2017 Clinical History: 87-year-old female follow-up pneumonia Findings: The heart is upper limits of normal in size. Mild elongation of the thoracic aorta with atherosclerot ic arch calcifications. Strandy areas of atelectasis in the lower lungs. Patchy retrocardiac opacity is present. Asymmetric elevation of the left hemidiaphragm slightly more pronounced from prior. Old f racture deformities of the proximal right humerus seen. The proximal left humerus is excluded from vi ew. Subtle 4 mm nodular density projecting at the peripheral right base. Impression: 1. Volume loss at the left base. There is patchy atelectasis and/or infiltrate here. 2. Subtle 4 mm nodule projecting at the peripheral right base. Consider short interval follow-up vers us further cross-sectional evaluation after successful treatment.
[2017-05-25 15:24] VITALS: BP 164/116; PULSE 103; RESP 14; TEMP 97.1
[2017-05-25] MEDS: amLODIPine 2.5 MG TAB PO SCH (15:54)
--- NOTE | 2017-05-25 16:15 | P.DS ---
Providers Date of admission: 05/22/17 21:28 Expected date of discharge: 05/25/17 Attending physician: Jozef Jones Consults: 05/23/17 11:50 Consult Physician Routine Consulting Provider: Katya Ortiz Consult Reason/Comments: UTI Do you want consulting provider notified?: Yes Primary care physician: [facility] Course: Final Diagnoses: #1 acute toxic encephalopathy: Possibly secondary to urinary tract infection, possible catheter associated UTI, in a patient with history of recurrent E. coli ESBL UTI , and suspected silent aspiration-aspiration pneumonitis. 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 #4 degenerative joint disease. #5 essential hypertension. #6 hypokalemia #7 Aspiration pneumonitis, Patient had a history of swallow problems in the past. Pured diet with honey thickened liquids recommended at prior visit with strict aspiration precautions. #8 4 mm nodule peripheral right base, outpatient follow-up recommended. This is an 87-year-old female with Parkinson's, senile dementia and multiple other medical issues admitted with acute toxic encephalopathy, suspect secondary to recurrent UTI. Evaluated by infectious disease. Blank catheter changed. Maintained on Unasyn. Significant clinical improvement. Elevated, improving LFTs, suspect related to herbal meds. No herbal meds recommended. Cleared by infectious disease for discharge. Patient is being discharged home with caregiver in a stable condition with guarded prognosis. Microbiology 05/22/17 19:41 Urine,Catheterized Urine Culture - Final Lindsay albicans 05/22/17 18:40 Blood Blood Culture - Preliminary No Growth after 48 hours 05/23/17 16:00 Urine,Catheterized Urine Culture - Preliminary Microbiology 05/22/17 19:41 Urine,Catheterized Urine Culture - Final Lindsay albicans 05/22/17 18:40 Blood Blood Culture - Preliminary No Growth after 48 hours 05/23/17 16:00 Urine,Catheterized Urine Culture - Preliminary The impression and plan of care has been dictated as directed as a scribe. : I performed a H&P examination of this patient and discussed the same with the dictator. I agree with the dictator's note. Any additional findings/opinions/ etc. will be noted. Patient Condition at Discharge: Stable Plan - Discharge Summary New Discharge Prescriptions: New Amoxic-Pot Clav 875-125Mg [Augmentin 875-125] 1 tab PO Q12HR #20 tablet Fluconazole [Diflucan] 100 mg PO DAILY #3 tab Continue amLODIPine [Norvasc] 2.5 mg PO HS Multivitamins, Thera [Multivitamin (formulary)] 1 tab PO DAILY Discontinued Nitrofurantoin Monohyd/M-Cryst [Macrobid] 100 mg PO Q12HR Discharge Medication List Carbidopa-Levodopa 25-100 mg [Sinemet 25-100 mg] 1 tab PO TID #60 tab 10/08/16 [ Rx] amLODIPine [Norvasc] 2.5 mg PO HS 10/08/16 [History] Multivitamins, Thera [Multivitamin (formulary)] 1 tab PO DAILY 02/04/17 [History ] Amoxic-Pot Clav 875-125Mg [Augmentin 875-125] 1 tab PO Q12HR #20 tablet [Rx] Fluconazole [Diflucan] 100 mg PO DAILY #3 tab 05/25/17 [Rx] Follow up Appointment(s)/Referral(s): Reji Haynes DO [Doctor of Osteopathic Medicine] - 2 Weeks (4 mm nodule peripheral right base follow-up) [facility], [NON-STAFF] - Reji Vaughan MD [Primary Care Provider] - 3 Days Ambulatory/Diagnostic Orders: Complete Blood Count w/diff [LAB.AMB] Time Frame: 3 Days, Location: Determined By Patient Activity/Diet/Wound Care/Special Instructions: Pured diet, honey thickened liquids, strict aspiration precautions, head of bed elevated at all times while feeding. GI suggests NO herbal medications such as tumeric or vinegar. Activity: As tolerated Discharge Disposition: HOME WITH HOME HEALTH SERVICES
--- NOTE | 2017-05-25 16:20 | PN ---
DATE OF SERVICE: 05/25/2017 REASON FOR FOLLOW UP: Possible aspiration pneumonitis and catheter associated UTI. INTERVAL HISTORY: The patient is afebrile. The patient remains to be lethargic and weak and is being fed by the caregiver who did mention the patient did have some coughing episode. No nausea, vomiting has been noticed or any diarrhea. On examination, blood pressure is 164/100 with pulse of 103, temperature of 98.1. She is 96% on room air. General description is an elderly female lying in bed. No distress. RESPIRATORY: Unlabored breathing. Clear to auscultation anteriorly. HEART: S1, S2, regular rate and rhythm. ABDOMEN: Soft, no tenderness. LABS: Hemoglobin 11.4, white count of 6.1 with BUN of 7, creatinine 0.43. Liver enzymes has improved. Initial urine culture showing Lindsay. Chest x-ray some left lower ( ). DIAGNOSTIC IMPRESSION AND PLAN: Patient admitted to the hospital with mental status changes with concern for possible aspiration pneumonitis or catheter associated urinary tract infection. The urine shows a Lindsay which could be colonized as the Blank has been changed. Repeat cultures so far negative. If the plan is possible discharge and the patient did improve on Unasyn, he will be given short course of oral Augmentin. Plan of care was discussed with the admitting team. VALERY
== END 2017-05-25 17:33 | disposition home health service (06) | DRG 698 ==
LOC: EC 17:49 → 4MS4W 21:28
PROVIDERS: ADMIT Hospitalist; ATTEND Hospitalist
DX: T83.511A Infection and inflammatory reaction due to indwelling urethral catheter, initial encounter (principal); A41.9 Sepsis, unspecified organism; J69.0 Pneumonitis due to inhalation of food and vomit; G92 Toxic encephalopathy; F03.90 Unspecified dementia, unspecified severity, without behavioral disturbance, psychotic disturbance, mood disturbance, and anxiety; G20 Parkinson's disease; N39.0 Urinary tract infection, site not specified; K82.4 Cholesterolosis of gallbladder; K80.20 Calculus of gallbladder without cholecystitis without obstruction; E87.6 Hypokalemia; I10 Essential (primary) hypertension; M19.90 Unspecified osteoarthritis, unspecified site; R74.8 Abnormal levels of other serum enzymes; Y73.8 Miscellaneous gastroenterology and urology devices associated with adverse incidents, not elsewhere classified; Y92.9 Unspecified place or not applicable
CPT/HCPCS: 36415; 71010; 71020; 76705; 80053; 80074; 81001; 82150; 83605; 83690; 83735; 84484; 85025; 85610; 85730; 87040; 87086; 93005

== ENCOUNTER 2017-07-07 19:34 | Emergency (ER) | payer MEDICARE, BC ==
--- NOTE | 2017-07-07 20:42 | XR ---
EXAMINATION TYPE: XR chest 2V DATE OF EXAM: 07/07/2017 COMPARISON: 05/25/2017 INDICATION: Pain, fall TECHNIQUE: Frontal and lateral views of the chest are obtained. FINDINGS: The heart size is normal. The pulmonary vasculature is normal. The density at the right lung base remains present. Prior facture of the left humeral neck appears to be present. Advanced degenerative changes and/or pr ior fracture at the right humerus may be present. IMPRESSION: 1. No acute pulmonary process. 2. Examination is stable from prior examinations including January and May 2017
--- NOTE | 2017-07-07 20:44 | XR ---
EXAMINATION TYPE: XR shoulder limited LT DATE OF EXAM: 07/07/2017 COMPARISON: NONE HISTORY: Pain TECHNIQUE: Shoulder examined in 2 FINDINGS: The humeral head articulates with the glenoid. Shaft of the humerus appears to be displaced from the humeral head. However, this appears stable in orientation prior chest films including January and May 2017. The acromio-clavicular junction is normal. No acute fractures or dislocations are evident. A follow up study can be performed 7-10 days from acute trauma for continued pain. IMPRESSION: 1. Suggestion of prior fracture at the left humeral neck. If there is continued clinical concern for fracture of the left humerus, CT could be performed to evaluate for occult fractures.
--- NOTE | 2017-07-07 20:45 | XR ---
EXAMINATION TYPE: XR pelvis AP view DATE OF EXAM: 07/07/2017 COMPARISON: NONE HISTORY: Pain, fall TECHNIQUE: Single AP pelvis FINDINGS: Right hip pin is present. Prior symphysis pubis fractures may be present. An acute fracture is not identified. Sacroiliac joints are normal. Degenerative changes are at the right hip IMPRESSION: 1. No acute osseous abnormality. Chronic changes appear to be present
--- NOTE | 2017-07-07 20:55 | ED ---
Fall HPI - General Chief Complaint: Fall Stated Complaint: fall/shoulder pain & catheter problems Time Seen by Provider: 07/07/17 19:43 Source: patient, family Mode of arrival: wheelchair Limitations: altered mental status - History of Present Illness Initial Comments: This is an 87-year-old female presents emergency Department with son chief complaint fall. Patient slipped out of bed and fell onto her left shoulder, left hip region. There is no head injury no LOC. Patient has dementia and is minimally verbal. Patient does complain of left shoulder pain. Patient's a prior fracture left shoulder. Patient also broke her Blank which she broke the valve off Son states there was some fluid that leaked out at that time. Patient has chronic Blank. Currently on antibiotics for UTI. Patient had no fever or chills denies any chest pain or shortness of breath. - Related Data Home Medications Medication Instructions Recorded Confirmed amLODIPine [Norvasc] 2.5 mg PO HS 10/08/16 07/07/17 Multivitamins, Thera [Multivitamin 1 tab PO DAILY 02/04/17 07/07/17 (formulary)] Ciprofloxacin HCl [Cipro] 500 mg PO BID 07/07/17 07/07/17 Previous Rx's Medication Instructions Recorded Carbidopa-Levodopa 25-100 mg 1 tab PO TID #60 tab 10/08/16 [Sinemet 25-100 mg] Allergies Allergy/AdvReac Type Severity Reaction Status Date / Time No Known Allergies Allergy Verified 07/07/17 20:01 Review of Systems ROS Statement: Those systems with pertinent positive or pertinent negative responses have been documented in the HPI. ROS Other: All systems not noted in ROS Statement are negative. Past Medical History Past Medical History: Dementia, Hypertension, Musculoskeletal Disorder, Neurologic Disorder, Osteoarthritis (OA) Additional Past Medical History / Comment(s): 06/2016 Fall with R humerous and pelvic fracture-no surgical intervention, PARKINSONS, constipation. History of Any Multi-Drug Resistant Organisms: ESBL Date of last positivie culture/infection: 02/08/17 MDRO Source:: ESBL URINE E.COLI Past Surgical History: Tonsillectomy Additional Past Surgical History / Comment(s): hip surgery (nail put in) HIP FRACTURE, PELVIS FRACTURE. Past Anesthesia/Blood Transfusion Reactions: No Reported Reaction Additional Past Anesthesia/Blood Transfusion Reaction / Comment(s): Pt's only surgery was a tonsillectomy-no anesthesia was used. Past Psychological History: No Psychological Hx Reported Smoking Status: Never smoker Past Alcohol Use History: None Reported Past Drug Use History: None Reported - Past Family History Father History Unknown: Yes Additional Family Medical History / Comment(s): Father in his 60's. Mother Family Medical History: Cancer Additional Family Medical History / Comment(s): Mother had breast cancer. She at the age of 79yrs. General Exam Limitations: altered mental status General appearance: alert, in no apparent distress Head exam: Present: atraumatic, normocephalic, normal inspection Eye exam: Present: normal appearance, PERRL, EOMI. Absent: scleral icterus, conjunctival injection, periorbital swelling ENT exam: Present: normal exam, normal oropharynx, mucous membranes moist Neck exam: Present: normal inspection. Absent: tenderness, meningismus, lymphadenopathy Respiratory exam: Present: normal lung sounds bilaterally. Absent: respiratory distress, wheezes, rales, rhonchi, stridor Cardiovascular Exam: Present: regular rate, normal rhythm, normal heart sounds. Absent: systolic murmur, diastolic murmur, rubs, gallop, clicks Extremities exam: Present: other (Mild tenderness left shoulder limited range of motion neurovascular intact there is no tenderness of THE lower extremity at this time.) Back exam: Present: full ROM. Absent: tenderness, paraspinal tenderness, vertebral tenderness Neurological exam: Present: alert, CN II-XII intact. Absent: oriented X3 Skin exam: Present: warm, dry, intact, normal color. Absent: rash Course Vital Signs 07/07/17 19:36 Temperature 97.2 F L Pulse Rate 99 Respiratory 16 Rate Blood Pressure 176/73 O2 Sat by Pulse 92 L Oximetry Medical Decision Making - Medical Decision Making 87-year-old female presented for fall. Patient's Blank catheter was exchanged as it was broken at this time. There was no compilations with exchanged. Patient's x-ray does reveal multiple fracture of her left shoulder but no other acute abnormalities on left shoulder x-ray, pelvis and chest x-ray. Patient was placed in a sling as she made some acute on chronic injury. Disposition Clinical Impression: Fall, Left shoulder pain, Blank catheter problem Disposition: HOME SELF-CARE Condition: Stable Instructions: Fall Prevention for Older Adults (ED) Additional Instructions: Please return to the Emergency Department if symptoms worsen or any other concerns. Referrals: Reji Vaughan MD [Primary Care Provider] - 1-2 days Patria Greene DO [Doctor of Osteopathic Medicine] - 1-2 days Time of Disposition: 20:55
[2017-07-07] MEDS ORDERED: IBUPROFEN 600 MG TAB PO STA (20:58)
[2017-07-07 21:55] VITALS: RESP 18
[2017-07-07 22:00] VITALS: BP 191/81; PULSE 93; TEMP 97.8
== END 2017-07-07 21:57 | disposition home or self-care (01) ==
LOC: EC 19:34
DX: M25.512 Pain in left shoulder (principal); T83.011A Breakdown (mechanical) of indwelling urethral catheter, initial encounter; I10 Essential (primary) hypertension; Z87.81 Personal history of (healed) traumatic fracture; Z98.890 Other specified postprocedural states; Z79.899 Other long term (current) drug therapy; W06.XXXA Fall from bed, initial encounter; Y82.8 Other medical devices associated with adverse incidents
CPT/HCPCS: 51702; 71020; 72170; 99283

== ENCOUNTER 2017-07-12 18:45 | Inpatient (IN) | payer MEDICARE, BC ==
[2017-07-12] MEDS ORDERED: SODIUM CHLORIDE 0.9% 1,000 ML IV ONE (19:14)
[2017-07-12] MEDS ORDERED: SODIUM CHLORIDE 0.9% 500 ML IV ONE (19:14)
--- NOTE | 2017-07-12 19:19 | ED ---
General Adult HPI - General Chief complaint: Altered Mental Status Stated complaint: DX:UTI Time Seen by Provider: 07/12/17 18:59 Source: patient, family, RN notes reviewed, old records reviewed Mode of arrival: wheelchair Limitations: altered mental status - History of Present Illness Initial comments: 87-year-old female with past medical history of hypertension, Parkinson's, and urinary retention presents with a three-week history of worsening confusion. Patient was treated by her primary care physician for UTI, initially started on Cipro and then switched to nitrofurantoin. Patient's symptoms have continued to worsen. According to her son yesterday she was unable to drink normally. She was drooling. She does have a Blank catheter for urinary retention and has had history of resistant urinary tract infections in the past. Patient Does State That Her Change in Mental Status Is Consistent with Previous Urinary Tract Infections. Patient Has Had Approximately 24 Hours of Decreased by Mouth Intake. She Is Currently Alert and Oriented 2, Blood Very Slow to Respond. Baseline Is Alert and Oriented 3, with Some Mild Baseline Dementia. - Related Data Home Medications Medication Instructions Recorded Confirmed amLODIPine [Norvasc] 2.5 mg PO DAILY 10/08/16 07/12/17 Multivitamins, Thera [Multivitamin 1 tab PO DAILY 02/04/17 07/12/17 (formulary)] Ibuprofen [Advil] 200 mg PO Q12H PRN 07/12/17 07/12/17 Nitrofurantoin Monohyd/M-Cryst 100 mg PO BID 07/12/17 07/12/17 [Macrobid] Potassium 99 mg PO DAILY 07/12/17 07/12/17 Previous Rx's Medication Instructions Recorded Carbidopa-Levodopa 25-100 mg 1 tab PO TID #60 tab 10/08/16 [Sinemet 25-100 mg] Allergies Allergy/AdvReac Type Severity Reaction Status Date / Time No Known Allergies Allergy Verified 07/12/17 19:00 Review of Systems ROS Statement: Those systems with pertinent positive or pertinent negative responses have been documented in the HPI. ROS Other: All systems not noted in ROS Statement are negative. Past Medical History Past Medical History: Dementia, Hypertension, Musculoskeletal Disorder, Neurologic Disorder, Osteoarthritis (OA) Additional Past Medical History / Comment(s): 06/2016 Fall with R humerous and pelvic fracture-no surgical intervention, PARKINSONS, constipation. History of Any Multi-Drug Resistant Organisms: ESBL Date of last positivie culture/infection: 02/08/17 MDRO Source:: ESBL URINE E.COLI Past Surgical History: Tonsillectomy Additional Past Surgical History / Comment(s): hip surgery (nail put in) HIP FRACTURE, PELVIS FRACTURE. Past Anesthesia/Blood Transfusion Reactions: No Reported Reaction Additional Past Anesthesia/Blood Transfusion Reaction / Comment(s): Pt's only surgery was a tonsillectomy-no anesthesia was used. Past Psychological History: No Psychological Hx Reported Smoking Status: Never smoker Past Alcohol Use History: None Reported Past Drug Use History: None Reported - Past Family History Father History Unknown: Yes Additional Family Medical History / Comment(s): Father in his 60's. Mother Family Medical History: Cancer Additional Family Medical History / Comment(s): Mother had breast cancer. She at the age of 79yrs. General Exam Limitations: altered mental status General appearance: in no apparent distress, lethargic Head exam: Present: atraumatic, normocephalic Eye exam: Present: normal appearance, PERRL. Absent: scleral icterus, conjunctival injection ENT exam: Present: mucous membranes dry Neck exam: Present: normal inspection. Absent: tenderness Respiratory exam: Present: normal lung sounds bilaterally. Absent: respiratory distress, wheezes Cardiovascular Exam: Present: regular rate, normal rhythm GI/Abdominal exam: Present: soft. Absent: distended, tenderness Extremities exam: Present: normal inspection, other (Tenderness over the left shoulder, pain with range of motion.). Absent: normal capillary refill, pedal edema Neurological exam: Present: altered. Absent: motor sensory deficit Psychiatric exam: Present: normal affect, normal mood Skin exam: Present: warm, dry, intact. Absent: cyanosis, diaphoretic Course Vital Signs 07/12/17 07/12/17 07/12/17 18:58 19:00 20:00 Temperature 98.2 F 97.4 F L Pulse Rate 80 83 81 Respiratory 16 14 16 Rate Blood Pressure 136/89 162/73 193/86 O2 Sat by Pulse 96 96 97 Oximetry EKG Findings - EKG Comments: EKG Findings:: EKG shows sinus rhythm, ventricular rate of 74, MS interval 1:30 , QS duration 96, QTC 461, no signs of ST segment elevation or depression Medical Decision Making - Medical Decision Making 87-year-old female presenting with 3 week history of worsening confusion and urinary tract infection. On examination patient is alert and oriented 2, baseline of alert and oriented 3. She has no focal neurological findings. She has pain with rotation of her left shoulder. Otherwise examination is unremarkable. Laboratory studies reveal white blood cell count 7.9, hemoglobin 11.4 which is stable, mild hyponatremia 133. Creatinine is mildly elevated at 0.117. Patient does deny chest pain although she is somewhat altered. This may be troponin leak secondary to dehydration. EKG shows no signs of acute ischemia. Patient is given an aspirin in the emergency department, serial troponins will be obtained, and cardiology will be placed on consult. Urinalysis is positive for nitrates, as well as 95 white blood cells and bacteria. Urine culture is pending. Medical record was reviewed and did reveal the patient has a history of ESBL E. coli urinary tract infection in the past. This was sensitive at that time to nitrofurantoin. Patient is continued on nitrofurantoin is started on ceftriaxone while cultures are pending. She will be given IV fluids for rehydration. An admitted for continued treatment and reevaluation. Cardiology and infectious disease are placed on consult. Chest x-ray shows no acute process, CT is obtained of the shoulder is negative for acute fracture. CT head shows no acute intracranial process Diagnosis: UTI failed outpatient treatment, altered mental status, elevated troponin. - Lab Data Result diagrams: 07/12/17 19:28 07/12/17 19:28 Lab Results 07/12/17 07/12/17 07/12/17 Range/Units 19:26 19:28 19:28 WBC 7.9 (3.8-10.6) k/uL RBC 3.87 (3.80-5.40) m/uL Hgb 11.4 (11.4-16.0) gm/dL Hct 33.6 L (34.0-46.0) % MCV 86.9 (80.0-100.0) fL MCH 29.5 (25.0-35.0) pg MCHC 33.9 (31.0-37.0) g/dL RDW 15.3 (11.5-15.5) % Plt Count 388 (150-450) k/uL Neutrophils % 83 % Lymphocytes % 9 % Monocytes % 4 % Eosinophils % 3 % Basophils % 0 % Neutrophils # 6.5 (1.3-7.7) k/uL Lymphocytes # 0.7 L (1.0-4.8) k/uL Monocytes # 0.3 (0-1.0) k/uL Eosinophils # 0.3 (0-0.7) k/uL Basophils # 0.0 (0-0.2) k/uL PT (9.0-12.0) sec INR (<1.2) APTT (22.0-30.0) sec Sodium (137-145) mmol/L Potassium (3.5-5.1) mmol/L Chloride (98-107) mmol/L Carbon Dioxide (22-30) mmol/L Anion Gap mmol/L BUN (7-17) mg/dL Creatinine (0.52-1.04) mg/dL Est GFR (MDRD) Af Amer (>60 ml/min/1.73 sqM) Est GFR (MDRD) Non-Af (>60 ml/min/1.73 sqM) Glucose (74-99) mg/dL POC Glucose (mg/dL) 125 H (75-99) mg/dL POC Glu [employer] ID Salgat, Rin Plasma Lactic Acid Chidi (0.7-2.0) mmol/L Calcium (8.4-10.2) mg/dL Total Bilirubin (0.2-1.3) mg/dL AST (14-36) U/L ALT (9-52) U/L Alkaline Phosphatase (38-126) U/L Total Creatine Kinase 43 (30-135) U/L CK-MB (CK-2) 0.5 (0.0-2.4) ng/mL CK-MB (CK-2) Rel Index 1.2 Troponin I 0.117 H* (0.000-0.034) ng/mL Total Protein (6.3-8.2) g/dL Albumin (3.5-5.0) g/dL Urine Color Urine Appearance (Clear) Urine pH (5.0-8.0) Ur Specific [place] (1.001-1.035) Urine Protein (Negative) Urine Glucose (UA) (Negative) Urine Ketones (Negative) Urine Blood (Negative) Urine Nitrite (Negative) Urine Bilirubin (Negative) Urine Urobilinogen (<2.0) mg/dL Ur Leukocyte Esterase (Negative) Urine RBC (0-5) /hpf Urine WBC (0-5) /hpf Urine WBC Clumps (None) /hpf Urine Bacteria (None) /hpf Urine Mucus (None) /hpf Urine Yeast (Budding) (None) /hpf 07/12/17 07/12/17 07/12/17 Range/Units 19:28 19:28 19:28 WBC (3.8-10.6) k/uL RBC (3.80-5.40) m/uL Hgb (11.4-16.0) gm/dL Hct (34.0-46.0) % MCV (80.0-100.0) fL MCH (25.0-35.0) pg MCHC (31.0-37.0) g/dL RDW (11.5-15.5) % Plt Count (150-450) k/uL Neutrophils % % Lymphocytes % % Monocytes % % Eosinophils % % Basophils % % Neutrophils # (1.3-7.7) k/uL Lymphocytes # (1.0-4.8) k/uL Monocytes # (0-1.0) k/uL Eosinophils # (0-0.7) k/uL Basophils # (0-0.2) k/uL PT 10.4 (9.0-12.0) sec INR 1.0 (<1.2) APTT 23.6 (22.0-30.0) sec Sodium 133 L (137-145) mmol/L Potassium 3.7 (3.5-5.1) mmol/L Chloride 99 (98-107) mmol/L Carbon Dioxide 24 (22-30) mmol/L Anion Gap 10 mmol/L BUN 21 H (7-17) mg/dL Creatinine 0.40 L (0.52-1.04) mg/dL Est GFR (MDRD) Af Amer >60 (>60 ml/min/1.73 sqM) Est GFR (MDRD) Non-Af >60 (>60 ml/min/1.73 sqM) Glucose 122 H (74-99) mg/dL POC Glucose (mg/dL) (75-99) mg/dL POC Glu [employer] ID Plasma Lactic Acid Chidi (0.7-2.0) mmol/L Calcium 8.8 (8.4-10.2) mg/dL Total Bilirubin 0.8 (0.2-1.3) mg/dL AST 199 H (14-36) U/L ALT 30 (9-52) U/L Alkaline Phosphatase 97 (38-126) U/L Total Creatine Kinase (30-135) U/L CK-MB (CK-2) (0.0-2.4) ng/mL CK-MB (CK-2) Rel Index Troponin I (0.000-0.034) ng/mL Total Protein 6.2 L (6.3-8.2) g/dL Albumin 3.2 L (3.5-5.0) g/dL Urine Color Red Urine Appearance Cloudy H (Clear) Urine pH 5.5 (5.0-8.0) Ur Specific [place] 1.015 (1.001-1.035) Urine Protein Trace H (Negative) Urine Glucose (UA) Negative (Negative) Urine Ketones 1+ H (Negative) Urine Blood Small H (Negative) Urine Nitrite Positive H (Negative) Urine Bilirubin Negative (Negative) Urine Urobilinogen <2.0 (<2.0) mg/dL Ur Leukocyte Esterase Large H (Negative) Urine RBC 38 H (0-5) /hpf Urine WBC 95 H (0-5) /hpf Urine WBC Clumps Moderate H (None) /hpf Urine Bacteria Moderate H (None) /hpf Urine Mucus Many H (None) /hpf Urine Yeast (Budding) Many H (None) /hpf 07/12/17 Range/Units 19:28 WBC (3.8-10.6) k/uL RBC (3.80-5.40) m/uL Hgb (11.4-16.0) gm/dL Hct (34.0-46.0) % MCV (80.0-100.0) fL MCH (25.0-35.0) pg MCHC (31.0-37.0) g/dL RDW (11.5-15.5) % Plt Count (150-450) k/uL Neutrophils % % Lymphocytes % % Monocytes % % Eosinophils % % Basophils % % Neutrophils # (1.3-7.7) k/uL Lymphocytes # (1.0-4.8) k/uL Monocytes # (0-1.0) k/uL Eosinophils # (0-0.7) k/uL Basophils # (0-0.2) k/uL PT (9.0-12.0) sec INR (<1.2) APTT (22.0-30.0) sec Sodium (137-145) mmol/L Potassium (3.5-5.1) mmol/L Chloride (98-107) mmol/L Carbon Dioxide (22-30) mmol/L Anion Gap mmol/L BUN (7-17) mg/dL Creatinine (0.52-1.04) mg/dL Est GFR (MDRD) Af Amer (>60 ml/min/1.73 sqM) Est GFR (MDRD) Non-Af (>60 ml/min/1.73 sqM) Glucose (74-99) mg/dL POC Glucose (mg/dL) (75-99) mg/dL POC Glu [employer] ID Plasma Lactic Acid Chidi 1.2 (0.7-2.0) mmol/L Calcium (8.4-10.2) mg/dL Total Bilirubin (0.2-1.3) mg/dL AST (14-36) U/L ALT (9-52) U/L Alkaline Phosphatase (38-126) U/L Total Creatine Kinase (30-135) U/L CK-MB (CK-2) (0.0-2.4) ng/mL CK-MB (CK-2) Rel Index Troponin I (0.000-0.034) ng/mL Total Protein (6.3-8.2) g/dL Albumin (3.5-5.0) g/dL Urine Color Urine Appearance (Clear) Urine pH (5.0-8.0) Ur Specific [place] (1.001-1.035) Urine Protein (Negative) Urine Glucose (UA) (Negative) Urine Ketones (Negative) Urine Blood (Negative) Urine Nitrite (Negative) Urine Bilirubin (Negative) Urine Urobilinogen (<2.0) mg/dL Ur Leukocyte Esterase (Negative) Urine RBC (0-5) /hpf Urine WBC (0-5) /hpf Urine WBC Clumps (None) /hpf Urine Bacteria (None) /hpf Urine Mucus (None) /hpf Urine Yeast (Budding) (None) /hpf Disposition Clinical Impression: Altered mental status, UTI (urinary tract infection), Dehydration Disposition: ADMITTED IP TO THIS HOSP Condition: Stable Referrals: Reji Vaughan MD [Primary Care Provider] - 1-2 days Decision to Admit Reason: Admit from EC Decision Date: 07/12/17 Decision Time: 20:50
[2017-07-12 19:29] LABS: Glucose,Whole Blood 125 mg/dL (75-99)
[2017-07-12 19:54] LABS: Basophils % (A) 0 %; CH 29.4; Eosinophils # (A) 0.3 k/uL (0-0.7); Eosinophils % (A) 3 %; HCT 33.6 % (34.0-46.0); HDW 2.73; HGB 11.4 gm/dL (11.4-16.0); Luc # (Auto) 0.11; Luc % (Auto) 1; Lymphocytes # (A) 0.7 k/uL (1.0-4.8); Lymphocytes % (A) 9 %; MCH 29.5 pg (25.0-35.0); MCHC 33.9 g/dL (31.0-37.0); MCV 86.9 fL (80.0-100.0); Mean Platelet Volume 7.1; Monocytes # (A) 0.3 k/uL (0-1.0); Monocytes % (A) 4 %; Neutrophils # (A) 6.5 k/uL (1.3-7.7); Neutrophils % (A) 83 %; RBC 3.87 m/uL (3.80-5.40); RDW 15.3 % (11.5-15.5); WBC 7.9 k/uL (3.8-10.6); WBC (Perox) 7.86
[2017-07-12 20:01] LABS: Appearance,Urine Cloudy (Clear); Bacteria,Urine Moderate /hpf; Bilirubin,Urine Negative (Negative); Glucose,Urine (UA) Negative (Negative); Ketones,Urine 1+ (Negative); Leukocyte Esterase,Urine Large (Negative); Mucus,Urine Many /hpf; Nitrite,Urine Positive (Negative); PH, Urine 5.5 (5.0-8.0); Particle Count 9472; Protein,Urine Trace (Negative); RBC,Urine 38 /hpf (0-5); Specific Gravity,Urine 1.015 (1.001-1.035); UA Billing (MACRO vs. MICRO) MICRO; Urobilinogen,Urine <2.0 mg/dL (<2.0); WBC,Urine 95 /hpf (0-5)
[2017-07-12 20:02] LABS: Partial Thromboplastin Time 23.6 sec (22.0-30.0); Prothrombin Time 10.4 sec (9.0-12.0)
[2017-07-12 20:05] LABS: ALT 30 U/L (9-52); AST 199 U/L (14-36); Alkaline Phosphatase 97 U/L (38-126); Anion Gap 10 mmol/L; Blood Urea Nitrogen 21 mg/dL (7-17); Calcium 8.8 mg/dL (8.4-10.2); Carbon Dioxide 24 mmol/L (22-30); Chloride 99 mmol/L (98-107); Glucose 122 mg/dL (74-99); Non-African American GFR(MDRD) >60 (>60 ml/min/1.73 sqM); Potassium 3.7 mmol/L (3.5-5.1); Sodium 133 mmol/L (137-145); Total Bilirubin 0.8 mg/dL (0.2-1.3); Total Protein 6.2 g/dL (6.3-8.2)
--- NOTE | 2017-07-12 20:22 | XR ---
EXAMINATION TYPE: XR chest 2V DATE OF EXAM: 07/12/2017 COMPARISON: 07/07/2017 HISTORY: Altered mental status TECHNIQUE: Frontal and lateral views of the chest are obtained. FINDINGS: There is no heart failure nor confluent pneumonic infiltrate. Bilateral shoulder deformiti es consistent with old humeral neck fractures. Thoracic aorta is atheromatous. There are no hilar mas ses. There is some curvilinear density over the left cardiac border. This could relate to a skin fold . IMPRESSION: Atheromatous aorta. No definite acute lung disease. No change compared to last exam.
--- NOTE | 2017-07-12 20:23 | CT ---
EXAMINATION TYPE: CT brain wo con DATE OF EXAM: 07/12/2017 COMPARISON: 02/04/2017 HISTORY: Altered mental status. CT DLP: 1055 mGycm Automated exposure control for dose reduction was used. FINDINGS: There is cerebral cortical atrophy. There is no mass effect nor midline shift. There is no sign of in tracranial hemorrhage. There is some hypodensity in the periventricular white matter. The calvarium i s intact. IMPRESSION: CEREBRAL ATROPHY AND CHRONIC SMALL VESSEL ISCHEMIA. NO CHANGE COMPARED TO OLD EXAM.
--- NOTE | 2017-07-12 20:27 | CT ---
EXAMINATION TYPE: CT shoulder LT wo con DATE OF EXAM: 07/12/2017 COMPARISON: NONE HISTORY: Altered mental status. CT DLP: 410 mGycm Automated exposure control for dose reduction was used. FINDINGS: There is a impacted comminuted humeral neck fracture. There is no dislocation. There is deformity con sistent with a chronic fracture. The scapula is intact. The clavicle appears intact. AC joint space i s normal. There is slight deformity of the lateral end of the clavicle related to old healed fracture . IMPRESSION: OLD IMPACTED COMMINUTED LEFT HUMERAL NECK FRACTURE WITHOUT DEFINITE CHANGE IN POSITION COMPARED TO TH E CHEST X-RAY OF 01/24/2017. NO ACUTE FRACTURE SEEN.
[2017-07-12 20:29] LABS: Creatine Kinase MB 0.5 ng/mL (0.0-2.4)
[2017-07-12] MEDS ORDERED: NALOXONE 0.4 MG/ML 1 ML VIAL IV PRN (20:37)
[2017-07-12] MEDS ORDERED: ASPIRIN 325 MG TAB PO STA (20:37)
[2017-07-12] MEDS ORDERED: ONDANSETRON 4 MG/2 ML VIAL IVP PRN (20:37)
[2017-07-12] MEDS ORDERED: ACETAMINOPHEN TAB 325 MG TAB PO PRN (20:37)
[2017-07-12 20:39] LABS: Troponin I 0.117 ng/mL (0.000-0.034)
[2017-07-12] MEDS ORDERED: IBUPROFEN 200 MG TAB PO PRN (22:37)
[2017-07-12] MEDS: NITROFURANTOIN MONOHYD/M-CRYST 100 MG CAP PO SCH (22:46)
[2017-07-12] MEDS: amLODIPine 2.5 MG TAB PO SCH (22:46)
[2017-07-13 02:34] LABS: Creatine Kinase MB 0.6 ng/mL (0.0-2.4)
[2017-07-13 02:37] LABS: Troponin I 0.092 ng/mL (0.000-0.034)
[2017-07-13] MEDS ORDERED: IBUPROFEN 600 MG TAB PO PRN (05:18)
[2017-07-13 06:44] LABS: Basophils % (A) 0 %; CH 29.2; CHCM 33.3; Eosinophils # (A) 0.3 k/uL (0-0.7); Eosinophils % (A) 4 %; HCT 29.3 % (34.0-46.0); HDW 2.79; Luc # (Auto) 0.07; Luc % (Auto) 1; Lymphocytes # (A) 0.4 k/uL (1.0-4.8); Lymphocytes % (A) 7 %; MCH 28.8 pg (25.0-35.0); MCHC 32.7 g/dL (31.0-37.0); MCV 88.1 fL (80.0-100.0); Mean Platelet Volume 7.5; Monocytes # (A) 0.3 k/uL (0-1.0); Monocytes % (A) 5 %; Neutrophils # (A) 4.9 k/uL (1.3-7.7); Neutrophils % (A) 82 %; RBC 3.33 m/uL (3.80-5.40); WBC 5.9 k/uL (3.8-10.6); WBC (Perox) 6.52
[2017-07-13 06:53] LABS: Anion Gap 12 mmol/L; Blood Urea Nitrogen 11 mg/dL (7-17); Calcium 8.2 mg/dL (8.4-10.2); Carbon Dioxide 24 mmol/L (22-30); Chloride 100 mmol/L (98-107); Glucose 92 mg/dL (74-99); Non-African American GFR(MDRD) >60 (>60 ml/min/1.73 sqM); Potassium 3.6 mmol/L (3.5-5.1); Sodium 136 mmol/L (137-145)
[2017-07-13 06:54] LABS: HGB 9.6 gm/dL (11.4-16.0)
--- NOTE | 2017-07-13 07:36 | XR ---
Fluoroscopy INDICATION: Fall 5 days prior Technique: 2 view left hip FINDINGS: There is a subcapital fracture of the left hip. The femoral head articulates with the aceta bulum. Vascular calcification is present. No additional fractures are identified. IMPRESSIONS: 1. Subcapital fracture left hip
[2017-07-13 07:51] LABS: Creatine Kinase MB 0.6 ng/mL (0.0-2.4)
[2017-07-13 07:58] LABS: Troponin I 0.079 ng/mL (0.000-0.034)
[2017-07-13] MEDS ORDERED: HYDROmorphone 1 MG/ML 1 ML SYRINGE IVP PRN ×3 (08:25→17:09)
[2017-07-13] MEDS: NITROFURANTOIN MONOHYD/M-CRYST 100 MG CAP PO SCH (08:26)
[2017-07-13] MEDS: DOCUSATE 100 MG CAP PO SCH (08:26)
[2017-07-13] MEDS: amLODIPine 2.5 MG TAB PO SCH (08:26)
[2017-07-13] MEDS ORDERED: NITROFURANTOIN MACROCRYSTAL 50 MG CAP PO SCH (09:00)
[2017-07-13] MEDS: ENOXAPARIN 40 MG/0.4 ML SYRINGE SQ SCH (09:01)
--- NOTE | 2017-07-13 09:14 | P.CNOR ---
History of Present Illness - HPI Consult date: 07/13/17 History of present illness: This is an 87-year-old female admitted for UTI and altered mental status. Orthopedics is consulted for left hip fracture. Patient is a poor historian and is unable to answer questions. The nurse in the room states that the patient has fallen twice within the last 5 days. No family is present in the room to talk to. Patient is painful in the left hip. Patient is sitting up in bed in no acute distress. Review of Systems See HPI. Past Medical History Past Medical History: Dementia, Hypertension, Musculoskeletal Disorder, Neurologic Disorder, Osteoarthritis (OA) Additional Past Medical History / Comment(s): 07/07/2016 Fall with L humerous and pelvic fracture-no surgical intervention, PARKINSONS, constipation. History of Any Multi-Drug Resistant Organisms: ESBL Year Discovered:: 06/28/2016 MDRO Source:: ESBL URINE E.COLI Past Surgical History: Tonsillectomy Additional Past Surgical History / Comment(s): hip surgery (nail put in) HIP FRACTURE, PELVIS FRACTURE. Past Anesthesia/Blood Transfusion Reactions: No Reported Reaction Additional Past Anesthesia/Blood Transfusion Reaction / Comm: Pt's only surgery was a tonsillectomy-no anesthesia was used. Past Psychological History: No Psychological Hx Reported Additional Psychological History / Comment(s): Pt's adult son resides with her. He assists her with many things. She ambulates with a walker. She has a couple of women that she hired to assist her with bathing. Her son takes her to appts. Smoking Status: Never smoker Past Alcohol Use History: None Reported Past Drug Use History: None Reported - Past Family History Father History Unknown: Yes Additional Family Medical History / Comment(s): Father in his 60's. Mother Family Medical History: Cancer Additional Family Medical History / Comment(s): Mother had breast cancer. She at the age of 79yrs. Medications and Allergies Home Medications Medication Instructions Recorded Confirmed Type Carbidopa-Levodopa 25-100 mg 1 tab PO TID #60 tab 10/08/16 07/12/17 Rx [Sinemet 25-100 mg] amLODIPine [Norvasc] 2.5 mg PO DAILY 10/08/16 07/12/17 History Multivitamins, Thera [Multivitamin 1 tab PO DAILY 02/04/17 07/12/17 History (formulary)] Ibuprofen [Advil] 200 mg PO Q12H PRN 07/12/17 07/12/17 History Nitrofurantoin Monohyd/M-Cryst 100 mg PO BID 07/12/17 07/12/17 History [Macrobid] Potassium 99 mg PO DAILY 07/12/17 07/12/17 History Allergies Allergy/AdvReac Type Severity Reaction Status Date / Time No Known Allergies Allergy Verified 07/12/17 19:00 Physical Examination Patient is in no acute distress. On exam of the left lower extremity there is no deformity. Patient expresses pain with minimal movements of the left lower extremity. There is tenderness to palpation to the lateral aspect of the left hip. Calves are soft and nontender. Dorsalis pedis pulse 2+. On exam of bilateral upper extremities there is some mild pain in the shoulders with passive range of motion but there is no bruising, swelling, ecchymosis or deformity. Patient has full range of motion of the wrist and hands without pain or difficulty. No swelling of the wrists or hands. Radial pulses are 2+ bilaterally. Results X-rays of the left hip are reviewed showing a subcapital fracture of the left hip. - Labs Labs: Abnormal Lab Results - Last 24 Hours (Table) 07/12/17 07/12/17 07/12/17 Range/Units 19:26 19:28 19:28 RBC (3.80-5.40) m/uL Hgb (11.4-16.0) gm/dL Hct 33.6 L (34.0-46.0) % Lymphocytes # 0.7 L (1.0-4.8) k/uL Sodium (137-145) mmol/L BUN (7-17) mg/dL Creatinine (0.52-1.04) mg/dL Glucose (74-99) mg/dL POC Glucose (mg/dL) 125 H (75-99) mg/dL Calcium (8.4-10.2) mg/dL AST (14-36) U/L Troponin I 0.117 H* (0.000-0.034) ng/mL Total Protein (6.3-8.2) g/dL Albumin (3.5-5.0) g/dL Urine Appearance (Clear) Urine Protein (Negative) Urine Ketones (Negative) Urine Blood (Negative) Urine Nitrite (Negative) Ur Leukocyte Esterase (Negative) Urine RBC (0-5) /hpf Urine WBC (0-5) /hpf Urine WBC Clumps (None) /hpf Urine Bacteria (None) /hpf Urine Mucus (None) /hpf Urine Yeast (Budding) (None) /hpf 07/12/17 07/12/17 07/13/17 Range/Units 19:28 19:28 01:30 RBC (3.80-5.40) m/uL Hgb (11.4-16.0) gm/dL Hct (34.0-46.0) % Lymphocytes # (1.0-4.8) k/uL Sodium 133 L (137-145) mmol/L BUN 21 H (7-17) mg/dL Creatinine 0.40 L (0.52-1.04) mg/dL Glucose 122 H (74-99) mg/dL POC Glucose (mg/dL) (75-99) mg/dL Calcium (8.4-10.2) mg/dL AST 199 H (14-36) U/L Troponin I 0.092 H* (0.000-0.034) ng/mL Total Protein 6.2 L (6.3-8.2) g/dL Albumin 3.2 L (3.5-5.0) g/dL Urine Appearance Cloudy H (Clear) Urine Protein Trace H (Negative) Urine Ketones 1+ H (Negative) Urine Blood Small H (Negative) Urine Nitrite Positive H (Negative) Ur Leukocyte Esterase Large H (Negative) Urine RBC 38 H (0-5) /hpf Urine WBC 95 H (0-5) /hpf Urine WBC Clumps Moderate H (None) /hpf Urine Bacteria Moderate H (None) /hpf Urine Mucus Many H (None) /hpf Urine Yeast (Budding) Many H (None) /hpf 07/13/17 07/13/17 07/13/17 Range/Units 06:23 06:23 06:23 RBC 3.33 L (3.80-5.40) m/uL Hgb 9.6 L D (11.4-16.0) gm/dL Hct 29.3 L (34.0-46.0) % Lymphocytes # 0.4 L (1.0-4.8) k/uL Sodium 136 L (137-145) mmol/L BUN (7-17) mg/dL Creatinine 0.35 L (0.52-1.04) mg/dL Glucose (74-99) mg/dL POC Glucose (mg/dL) (75-99) mg/dL Calcium 8.2 L (8.4-10.2) mg/dL AST (14-36) U/L Troponin I 0.079 H* (0.000-0.034) ng/mL Total Protein (6.3-8.2) g/dL Albumin (3.5-5.0) g/dL Urine Appearance (Clear) Urine Protein (Negative) Urine Ketones (Negative) Urine Blood (Negative) Urine Nitrite (Negative) Ur Leukocyte Esterase (Negative) Urine RBC (0-5) /hpf Urine WBC (0-5) /hpf Urine WBC Clumps (None) /hpf Urine Bacteria (None) /hpf Urine Mucus (None) /hpf Urine Yeast (Budding) (None) /hpf Microbiology - Last 24 Hours (Table) 07/12/17 19:28 Urine Culture - Preliminary Urine,Catheterized H & H 07/12/17 07/13/17 Range/Units 19:28 06:23 Hgb 11.4 9.6 L D (11.4-16.0) gm/dL Hct 33.6 L 29.3 L (34.0-46.0) % Coagulation 07/12/17 Range/Units 19:28 INR 1.0 (<1.2) Result Diagrams: 07/13/17 06:23 07/13/17 06:23 Assessment and Plan (1) Closed left hip fracture Status: Acute (2) Altered mental status Status: Acute (3) UTI (urinary tract infection) Status: Acute (4) Fall Status: Acute Plan: #1. Medical and cardiology clearance pending. #2. Left hemiarthroplasty scheduled for this afternoon if cleared medically. #3. Patient to remain NPO. #4. Nonweightbearing to left lower extremity. We will continue to follow patient closely.
--- NOTE | 2017-07-13 10:02 | P.CRDCN ---
History of Present Illness History of present illness: Elderly female who states that she has pain only when she moves denies chest discomfort denies shortness of breath has suffered a hip fracture. Preliminary reading on 2-D echo suggests mild LV dysfunction and ECG is normal. I would suggest proceeding with surgery with low-dose beta blockers baby aspirin and a statin. She is obviously at high risk for the procedure she needs it Past Medical History Past Medical History: Dementia, Hypertension, Musculoskeletal Disorder, Neurologic Disorder, Osteoarthritis (OA) Additional Past Medical History / Comment(s): 07/07/2016 Fall with L humerous and pelvic fracture-no surgical intervention, PARKINSONS, constipation. History of Any Multi-Drug Resistant Organisms: ESBL Date of last positivie culture/infection: 06/28/2016 MDRO Source:: ESBL URINE E.COLI Past Surgical History: Tonsillectomy Additional Past Surgical History / Comment(s): hip surgery (nail put in) HIP FRACTURE, PELVIS FRACTURE. Past Anesthesia/Blood Transfusion Reactions: No Reported Reaction Additional Past Anesthesia/Blood Transfusion Reaction / Comment(s): Pt's only surgery was a tonsillectomy-no anesthesia was used. Past Psychological History: No Psychological Hx Reported Additional Psychological History / Comment(s): Pt's adult son resides with her. He assists her with many things. She ambulates with a walker. She has a couple of women that she hired to assist her with bathing. Her son takes her to appts. Smoking Status: Never smoker Past Alcohol Use History: None Reported Past Drug Use History: None Reported - Past Family History Father History Unknown: Yes Additional Family Medical History / Comment(s): Father in his 60's. Mother Family Medical History: Cancer Additional Family Medical History / Comment(s): Mother had breast cancer. She at the age of 79yrs. Medications and Allergies Home Medications Medication Instructions Recorded Confirmed Type Carbidopa-Levodopa 25-100 mg 1 tab PO TID #60 tab 10/08/16 07/12/17 Rx [Sinemet 25-100 mg] amLODIPine [Norvasc] 2.5 mg PO DAILY 10/08/16 07/12/17 History Multivitamins, Thera [Multivitamin 1 tab PO DAILY 02/04/17 07/12/17 History (formulary)] Ibuprofen [Advil] 200 mg PO Q12H PRN 07/12/17 07/12/17 History Nitrofurantoin Monohyd/M-Cryst 100 mg PO BID 07/12/17 07/12/17 History [Macrobid] Potassium 99 mg PO DAILY 07/12/17 07/12/17 History Allergies Allergy/AdvReac Type Severity Reaction Status Date / Time No Known Allergies Allergy Verified 07/12/17 19:00 Physical Exam Vitals: Vital Signs Temp Pulse Pulse Resp BP BP Pulse Ox 07/13/17 05:10 152/82 07/13/17 03:49 96.6 F L 73 20 175/77 99 07/13/17 00:00 62 16 155/69 93 L 07/12/17 22:10 97.4 F L 78 16 154/70 98 07/12/17 21:00 78 18 185/82 98 07/12/17 20:52 75 18 174/79 98 07/12/17 20:00 81 16 193/86 97 07/12/17 19:00 97.4 F L 83 14 162/73 96 07/12/17 18:58 98.2 F 80 16 136/89 96 Intake and Output 07/12/17 07/13/17 07/13/17 22:59 06:59 14:59 Intake Total 1100 700 Output Total 350 Balance 750 700 Intake: IV 400 700 cefTRIAXone 1,000 mg In 400 700 Sodium Chloride 0.9% 50 ml @ 100 mls/hr IVPB [facility] Rx#:[id number] Amount of Fluid Infused ( 600 ml) Intake, IV Titration 100 Amount cefTRIAXone 1,000 mg In 100 Sodium Chloride 0.9% 50 ml @ 100 mls/hr IVPB [facility] Rx#:[id number] Output: Urine 350 Other: Voiding Method Indwelling Catheter Indwelling Catheter Weight 49.3 kg 49 kg Results 07/13/17 06:23 07/13/17 06:23 Cardiac Enzymes 07/12/17 07/12/17 07/13/17 Range/Units 19:28 19:28 01:30 AST 199 H (14-36) U/L CK-MB (CK-2) 0.5 0.6 (0.0-2.4) ng/mL Troponin I 0.117 H* 0.092 H* (0.000-0.034) ng/mL 07/13/17 Range/Units 06:23 AST (14-36) U/L CK-MB (CK-2) 0.6 (0.0-2.4) ng/mL Troponin I 0.079 H* (0.000-0.034) ng/mL Coagulation 07/12/17 Range/Units 19:28 PT 10.4 (9.0-12.0) sec APTT 23.6 (22.0-30.0) sec CBC 07/12/17 07/13/17 Range/Units 19:28 06:23 WBC 7.9 5.9 (3.8-10.6) k/uL RBC 3.87 3.33 L (3.80-5.40) m/uL Hgb 11.4 9.6 L D (11.4-16.0) gm/dL Hct 33.6 L 29.3 L (34.0-46.0) % Plt Count 388 298 (150-450) k/uL Comprehensive Metabolic Panel 07/12/17 07/13/17 Range/Units 19:28 06:23 Sodium 133 L 136 L (137-145) mmol/L Potassium 3.7 3.6 (3.5-5.1) mmol/L Chloride 99 100 (98-107) mmol/L Carbon Dioxide 24 24 (22-30) mmol/L BUN 21 H 11 (7-17) mg/dL Creatinine 0.40 L 0.35 L (0.52-1.04) mg/dL Glucose 122 H 92 (74-99) mg/dL Calcium 8.8 8.2 L (8.4-10.2) mg/dL AST 199 H (14-36) U/L ALT 30 (9-52) U/L Alkaline Phosphatase 97 (38-126) U/L Total Protein 6.2 L (6.3-8.2) g/dL Albumin 3.2 L (3.5-5.0) g/dL Current Medications Generic Name Dose Route Start Last Admin Trade Name Freq PRN Reason Stop Dose Admin Amlodipine Besylate 2.5 mg 07/12/17 21:15 07/13/17 08:26 Norvasc PO Not Given DAILY [facility] Docusate Sodium 100 mg 07/13/17 09:00 07/13/17 08:26 Colace PO Not Given DAILY [facility] Enoxaparin Sodium 40 mg 07/13/17 09:00 07/13/17 09:01 Lovenox SQ Not Given DAILY [facility] Hydromorphone HCl 0.5 mg 07/13/17 08:25 07/13/17 09:02 Dilaudid IVP 0.5 mg Q4HR PRN Administration Pain Ceftriaxone Sodium 1,000 mg/ 50 mls @ 100 mls/hr 07/13/17 21:00 Sodium Chloride IVPB [facility] Ibuprofen 600 mg 07/13/17 05:18 07/13/17 06:35 Motrin PO 600 mg Q6H PRN Administration MILD Pain Naloxone HCl 0.2 mg 07/12/17 20:37 Narcan IV Q2M PRN Opioid Reversal Nitrofurantoin Macrocrystals 100 mg 07/12/17 21:15 07/13/17 08:26 Macrobid PO Not Given BID [facility] Ondansetron HCl 4 mg 07/12/17 20:37 Zofran IVP Q8HR PRN Nausea And Vomiting Intake and Output 07/12/17 07/13/17 07/13/17 22:59 06:59 14:59 Intake Total 1100 700 Output Total 350 Balance 750 700 Intake: IV 400 700 cefTRIAXone 1,000 mg In 400 700 Sodium Chloride 0.9% 50 ml @ 100 mls/hr IVPB [facility] Rx#:[id number] Amount of Fluid Infused ( 600 ml) Intake, IV Titration 100 Amount cefTRIAXone 1,000 mg In 100 Sodium Chloride 0.9% 50 ml @ 100 mls/hr IVPB [facility] Rx#:[id number] Output: Urine 350 Other: Voiding Method Indwelling Catheter Indwelling Catheter Weight 49.3 kg 49 kg 07/13/17 06:23 07/13/17 06:23
--- NOTE | 2017-07-13 10:06 | P.CRDCN ---
History of Present Illness Consult date: 07/13/17 Requesting physician: Kolby Jason Reason for Consult (text): Preop clearance Chief complaint: Mental status changes , fall and right hip fracture History of present illness: This is an 87-year-old female with history of hypertension, Parkinson' s, frequent UTIs, who has recently been treated for UTI with Cipro and was nitrofurantoin. In spite of treatment patient continued to worsen with mental status changes. She apparently was not drinking normally. She was brought to the hospital for this reason. I'm unable to get any history from the patient, the history was obtained from the medical record. Patient also has been experiencing falls at home and has incurred a left hip fracture. Cardiology consultation was requested for preop clearance. Scan of the brain revealed cerebral atrophy and chronic small vessel ischemia. EKG shows normal sinus rhythm with PACs no acute changes. At the time of my examination, she denies any chest pain. Quite confused overall. Blood pressure this morning 194/80 with heart rate in the 80s. 97% on 2 L. White blood cell count on admission 7.9, 5.9 this morning. Hemoglobin on admission 11.4, 9.6 this morning. Sodium 136, potassium 3.6, BUN 11, creatinine 0.3. Troponins 0.1, 0.92, 0.79. Positive UTI. Past Medical History Past Medical History: Dementia, Hypertension, Musculoskeletal Disorder, Neurologic Disorder, Osteoarthritis (OA) Additional Past Medical History / Comment(s): 07/07/2016 Fall with L humerous and pelvic fracture-no surgical intervention, PARKINSONS, constipation. History of Any Multi-Drug Resistant Organisms: ESBL Date of last positivie culture/infection: 06/28/2016 MDRO Source:: ESBL URINE E.COLI Past Surgical History: Tonsillectomy Additional Past Surgical History / Comment(s): hip surgery (nail put in) HIP FRACTURE, PELVIS FRACTURE. Past Anesthesia/Blood Transfusion Reactions: No Reported Reaction Additional Past Anesthesia/Blood Transfusion Reaction / Comment(s): Pt's only surgery was a tonsillectomy-no anesthesia was used. Past Psychological History: No Psychological Hx Reported Additional Psychological History / Comment(s): Pt's adult son resides with her. He assists her with many things. She ambulates with a walker. She has a couple of women that she hired to assist her with bathing. Her son takes her to [employer]. Smoking Status: Never smoker Past Alcohol Use History: None Reported Past Drug Use History: None Reported - Past Family History Father History Unknown: Yes Additional Family Medical History / Comment(s): Father in his 60's. Mother Family Medical History: Cancer Additional Family Medical History / Comment(s): Mother had breast cancer. She at the age of 79yrs. Medications and Allergies Home Medications Medication Instructions Recorded Confirmed Type Carbidopa-Levodopa 25-100 mg 1 tab PO TID #60 tab 10/08/16 07/12/17 Rx [Sinemet 25-100 mg] amLODIPine [Norvasc] 2.5 mg PO DAILY 10/08/16 07/12/17 History Multivitamins, Thera [Multivitamin 1 tab PO DAILY 02/04/17 07/12/17 History (formulary)] Ibuprofen [Advil] 200 mg PO Q12H PRN 07/12/17 07/12/17 History Nitrofurantoin Monohyd/M-Cryst 100 mg PO BID 07/12/17 07/12/17 History [Macrobid] Potassium 99 mg PO DAILY 07/12/17 07/12/17 History Allergies Allergy/AdvReac Type Severity Reaction Status Date / Time No Known Allergies Allergy Verified 07/12/17 19:00 Physical Exam Vitals: Vital Signs Temp Pulse Pulse Resp BP BP Pulse Ox 07/13/17 05:10 152/82 07/13/17 03:49 96.6 F L 73 20 175/77 99 07/13/17 00:00 62 16 155/69 93 L 07/12/17 22:10 97.4 F L 78 16 154/70 98 07/12/17 21:00 78 18 185/82 98 07/12/17 20:52 75 18 174/79 98 07/12/17 20:00 81 16 193/86 97 07/12/17 19:00 97.4 F L 83 14 162/73 96 07/12/17 18:58 98.2 F 80 16 136/89 96 Intake and Output 07/12/17 07/13/17 07/13/17 22:59 06:59 14:59 Intake Total 1100 700 Output Total 350 Balance 750 700 Intake: IV 400 700 cefTRIAXone 1,000 mg In 400 700 Sodium Chloride 0.9% 50 ml @ 100 mls/hr IVPB [facility] Rx#:[id number] Amount of Fluid Infused ( 600 ml) Intake, IV Titration 100 Amount cefTRIAXone 1,000 mg In 100 Sodium Chloride 0.9% 50 ml @ 100 mls/hr IVPB [facility] Rx#:[id number] Output: Urine 350 Other: Voiding Method Indwelling Catheter Indwelling Catheter Weight 49.3 kg 49 kg PHYSICAL EXAMINATION: HEENT: Head is atraumatic, normocephalic. Pupils equal, round. Neck is supple. There is no elevated jugular venous pressure. HEART EXAMINATION: Heart S1 and S2 systolic murmur is heard. CHEST EXAMINATION: Lungs are clear to auscultation and precussion. No chest wall tenderness is noted on palpation or with deep breathing. ABDOMEN: Soft, nontender. Bowel sounds are heard. No organomegaly noted. EXTREMITIES: 2+ peripheral pulses with no evidence of peripheral edema and no calf tenderness noted. NEUROLOGIC [patient is awake, confused. Results 07/13/17 06:23 07/13/17 06:23 Cardiac Enzymes 07/12/17 07/12/17 07/13/17 Range/Units 19:28 19:28 01:30 AST 199 H (14-36) U/L CK-MB (CK-2) 0.5 0.6 (0.0-2.4) ng/mL Troponin I 0.117 H* 0.092 H* (0.000-0.034) ng/mL 07/13/17 Range/Units 06:23 AST (14-36) U/L CK-MB (CK-2) 0.6 (0.0-2.4) ng/mL Troponin I 0.079 H* (0.000-0.034) ng/mL Coagulation 07/12/17 Range/Units 19:28 PT 10.4 (9.0-12.0) sec APTT 23.6 (22.0-30.0) sec CBC 07/12/17 07/13/17 Range/Units 19:28 06:23 WBC 7.9 5.9 (3.8-10.6) k/uL RBC 3.87 3.33 L (3.80-5.40) m/uL Hgb 11.4 9.6 L D (11.4-16.0) gm/dL Hct 33.6 L 29.3 L (34.0-46.0) % Plt Count 388 298 (150-450) k/uL Comprehensive Metabolic Panel 07/12/17 07/13/17 Range/Units 19:28 06:23 Sodium 133 L 136 L (137-145) mmol/L Potassium 3.7 3.6 (3.5-5.1) mmol/L Chloride 99 100 (98-107) mmol/L Carbon Dioxide 24 24 (22-30) mmol/L BUN 21 H 11 (7-17) mg/dL Creatinine 0.40 L 0.35 L (0.52-1.04) mg/dL Glucose 122 H 92 (74-99) mg/dL Calcium 8.8 8.2 L (8.4-10.2) mg/dL AST 199 H (14-36) U/L ALT 30 (9-52) U/L Alkaline Phosphatase 97 (38-126) U/L Total Protein 6.2 L (6.3-8.2) g/dL Albumin 3.2 L (3.5-5.0) g/dL Current Medications Generic Name Dose Route Start Last Admin Trade Name Freq PRN Reason Stop Dose Admin Amlodipine Besylate 2.5 mg 07/12/17 21:15 07/13/17 08:26 Norvasc PO Not Given DAILY [facility] Docusate Sodium 100 mg 07/13/17 09:00 07/13/17 08:26 Colace PO Not Given DAILY [facility] Enoxaparin Sodium 40 mg 07/13/17 09:00 07/13/17 09:01 Lovenox SQ Not Given DAILY [facility] Hydromorphone HCl 0.5 mg 07/13/17 08:25 07/13/17 09:02 Dilaudid IVP 0.5 mg Q4HR PRN Administration Pain Ceftriaxone Sodium 1,000 mg/ 50 mls @ 100 mls/hr 07/13/17 21:00 Sodium Chloride IVPB HS [facility] Ibuprofen 600 mg 07/13/17 05:18 07/13/17 06:35 Motrin PO 600 mg Q6H PRN Administration MILD Pain Naloxone HCl 0.2 mg 07/12/17 20:37 Narcan IV Q2M PRN Opioid Reversal Nitrofurantoin Macrocrystals 100 mg 07/12/17 21:15 07/13/17 08:26 Macrobid PO Not Given BID [facility] Ondansetron HCl 4 mg 07/12/17 20:37 Zofran IVP Q8HR PRN Nausea And Vomiting Intake and Output 07/12/17 07/13/17 07/13/17 22:59 06:59 14:59 Intake Total 1100 700 Output Total 350 Balance 750 700 Intake: IV 400 700 cefTRIAXone 1,000 mg In 400 700 Sodium Chloride 0.9% 50 ml @ 100 mls/hr IVPB [facility] Rx#:[id number] Amount of Fluid Infused ( 600 ml) Intake, IV Titration 100 Amount cefTRIAXone 1,000 mg In 100 Sodium Chloride 0.9% 50 ml @ 100 mls/hr IVPB [facility] Rx#:[id number] Output: Urine 350 Other: Voiding Method Indwelling Catheter Indwelling Catheter Weight 49.3 kg 49 kg 07/13/17 06:23 07/13/17 06:23 EKG Interpretations (text) EKG shows normal sinus rhythm with PACs. Assessment and Plan Plan: Assessment and plan #1 mental status changes with evidence of UTI #2 frequent falls with evidence of left hip fracture #3 dementia #4 hypertension #5 Parkinson's Plan Obtain an echocardiogram with Doppler study. Initiate small dose aspirin, add statin and small dose beta fred. is considered moderate to high risk for surgery, however she needs to have it. Further recommendations to follow. DNP note has been reviewed, I agree with a documented findings and plan of care. Patient was seen and examined.
--- NOTE | 2017-07-13 11:37 | ECHOF ---
Referral Reason:elevated trop MEASUREMENTS -------- HEIGHT: 132.1 cm WEIGHT: 49.0 kg BP: 152/82 IVSd: 1.3 cm (0.6 - 1.1) LVIDd: 3.5 cm (3.9 - 5.3) LVPWd: 1.2 cm (0.6 - 1.1) IVSs: 1.5 cm LVIDs: 2.8 cm LVPWs: 1.6 cm Ao Diam: 3.1 cm (2.0 - 3.7) AV Cusp: 1.0 cm (1.5 - 2.6) LA Diam: 3.9 cm (2.7 - 3.8) MV EXCURSION: 11.453 mm (> 18.000) MV EF SLOPE: 42 mm/s (70 - 150) EPSS: 1.0 cm MV E Lux: 0.65 m/s MV DecT: 153 ms MV A Lux: 1.20 m/s MV E/A Ratio: 0.54 AV maxP.69 mmHg AV meanP.19 mmHg AR PHT: 396 ms RAP: 5.00 mmHg RVSP: 39.79 mmHg FINDINGS -------- Sinus rhythm. This was a technically good study. There is mild concentric left ventricular hypertrophy. Overall left ventricular systolic function is low-normal with, an EF between 50 - 55 %. Inferior basal Hypokinesis Basal septal hypokinesis The right ventricle is normal in size and function. The left atrium is normal in size. The right atrium is normal in size. Aortic valve is trileaflet and is moderately thickened. There is yezu-uf-omvrwely aortic regurgitation. There is mild aortic stenosis present. Peak/mean gradient across the Aortic Valve is 21.69mmHg / 10.19mmHg. The mitral valve leaflets are mildly thickened. Mild mitral annular calcification present. Mild mitral regurgitation is present. Mild tricuspid regurgitation present. There is borderline pulmonary artery hypertension. The right ventricular systolic pressure, as measured by Doppler, is 39.79mmHg. Trace/mild (physiologic) pulmonic regurgitation. The aortic root size is normal. The pericardium is normal. CONCLUSIONS -------- 1. Sinus rhythm. 2. There is szas-oh-iqffpleg aortic regurgitation. 3. There is mild aortic stenosis present. 4. Peak/mean gradient across the Aortic Valve is 21.69mmHg / 10.19mmHg. 5. The mitral valve leaflets are mildly thickened. 6. Mild mitral annular calcification present. 7. Mild mitral regurgitation is present. 8. Mild tricuspid regurgitation present. 9. There is borderline pulmonary artery hypertension. 10. The right ventricular systolic pressure, as measured by Doppler, is 39.79mmHg. 11. Trace/mild (physiologic) pulmonic regurgitation. 12. This was a technically good study. 13. The aortic root size is normal. 14. The pericardium is normal. 15. There is mild concentric left ventricular hypertrophy. 16. Inferior basal Hypokinesis 17. Basal septal hypokinesis 18. The right ventricle is normal in size and function. 19. The left atrium is normal in size. 20. The right atrium is normal in size. 21. Aortic valve is trileaflet and is moderately thickened. PRISON LIBRARIAN: Kirstie Aguirre RDCS
[2017-07-13] MEDS: METOPROLOL TARTRATE 12.5 MG TAB PO SCH ×2 (11:47→21:50)
[2017-07-13] MEDS ORDERED: METOPROLOL TARTRATE 5 MG/5 ML VIAL IVP STA (11:47)
[2017-07-13] MEDS: ERTAPENEM 1 GM in SODIUM CHLORIDE 0.9% 50 ML IVPB SCH (12:24)
[2017-07-13] MEDS ORDERED: IV FLUID CONTINUATION 1,000 ML IV ONE (15:41)
[2017-07-13] MEDS ORDERED: HYDROmorphone (PF) 1 MG/ML ONE (15:45)
[2017-07-13] MEDS ORDERED: KETAMINE 10 MG/ML 20 ML VIAL ONE (15:45)
[2017-07-13] MEDS ORDERED: MIDAZOLAM 2 MG/2 ML VIAL ONE (15:45)
[2017-07-13] MEDS ORDERED: LACTATED RINGERS 1,000 ML IV ONE (16:42)
[2017-07-13] MEDS ORDERED: TEMAZEPAM 15 MG CAP PO PRN (17:09)
[2017-07-13] MEDS ORDERED: DIAZEPAM 5 MG TAB PO PRN (17:09)
[2017-07-13] MEDS ORDERED: HYDROcodone/APAP 5-325MG 1 EACH TAB PO PRN ×2 (17:09)
[2017-07-13] MEDS ORDERED: hydrOXYzine PAMOATE 25 MG CAP PO PRN (17:09)
[2017-07-13] MEDS ORDERED: MAGNESIUM HYDROXIDE 2,400 MG/10 ML CUP PO PRN (17:09)
[2017-07-13] MEDS ORDERED: ACETAMINOPHEN TAB 325 MG TAB PO PRN (17:09)
[2017-07-13] MEDS ORDERED: ceFAZolin 1,000 MG in SODIUM CHLORIDE 0.9% 1,000 ML IRRIGATION ONE (17:12)
--- NOTE | 2017-07-13 17:59 | P.PN ---
Progress Note - Text Anesthesia: At approximately 1530 hrs. today I had a discussion with Ashish DUBOIS the son of Destiny Dubois dominga ramosing who's had a left hip hemiarthroplasty performed by Dr. Simmons today under spinal anesthesia. Purpose of this note is to document the fact that at this time Ashish Silvino agreed as POA for his mother Destiny Dubois to allow the DO NOT RESUSCITATE order to be rescinded so that his mother could be a full code immediately perioperatively for the purpose of rendering anesthesia. Dr. Simmons entered the full code order and will reinstitute the DO NOT RESUSCITATE order postoperatively when the patient reached the floor.
--- NOTE | 2017-07-13 18:03 | P.OP ---
Date of Procedure: 07/13/17 Preoperative Diagnosis: 1. Displaced left subcapital femoral neck fracture 2. Urinary tract infection 3. Prior fragility fracture with multiple falls Postoperative Diagnosis: Same Procedure(s) Performed: Left hip hemiarthroplasty Implants: Terell LDFX size 12 stem and 43 mm head Anesthesia: spinal Surgeon: Spencer Simmons Subcontracts Manager #1: Gael Hernandez Estimated Blood Loss (ml): 150 IV fluids (ml): 600 Urine output (ml): 50 Pathology: other (Femoral head to pathology) Condition: stable Disposition: PACU Indications for Procedure: The patient is an 87-year-old female with multiple medical problems, urinary tract infection and multiple prior falls with previous fragility fractures who is admitted to internal medicine with altered mental status. She was found to have a displaced left femoral neck fracture and orthopedics was consulted. I met with the patient's son prior to surgery to discuss treatment. We discussed the standard of care for a displaced femoral neck fracture is with some type of arthroplasty. Due to the patient's age, poor bone quality and prior fragility fractures I recommended a cemented hemiarthroplasty. We discussed potential risks and complication of surgery including but not limited to risk of anesthesia, risk of superficial infection, risk of deep infection, risk of delayed wound healing, risk of wound necrosis, risk of intraoperative fracture, risk of postoperative periprosthetic fracture, risk of leg length discrepancy, risk of hip dislocation, risk of damage to local nerves including the sciatic nerve, risk of damage to blood vessel, risk of deep infection, risk of difficulty ambulating, risk of inability to ambulate, risk of postoperative medical problems including DVT, PE, fatal PE, acute coronary event, stroke, pneumonia, pressure sore, and urinary tract infection and possibly . The patient's son understands that she is at a high risk for surgery. The patient was seen preoperatively by internal medicine and cardiology and cleared with a high risk. The patient's daughter who works as a nurse was also spoken to over the phone and understands the patient's high risk for surgery but agrees it is in her best interest to facilitate early mobilization and pain control to undergo surgery. Operative Findings: Description of Procedure: The patient was identified in preoperative holding and the correct left leg was marked with my initials. I reviewed the consent form with the patient's son and person and with her daughter who works as a nurse over the phone. All of their questions were answered. The patient was then brought back to the operating room. A spinal anesthetic was administered by anesthesia while she was still on the gurney. The patient was then positioned and transferred onto an or table. She was placed in the lateral decubitus position with the left hip up. She was secured to the operating room table with a Montral frame. All bony prominences were well-padded. The left leg was then prepped and draped in standard sterile fashion. Prior to starting surgery timeout was performed identifying the correct patient, operative extremity, and procedure. I began by outlining an incision over the proximal aspect of the femur for a posterior approach to the hip. Skin incision was made with a 10 blade scalpel and dissection was carried down carefully through the subcutaneous tissue with electrocautery down to the IT band. The IT band was incised longitudinally in line with the skin incision. A Charnley retractor was placed deep to the IT band. The trochanteric bursa was excised with electrocautery. I identified the leading edge of the piriformis and a medium Lopez elevator was used to develop the interval between the piriformis and short external rotators and the posterior hip capsule. The piriformis and short rotators were released off of the femur with electrocautery. I then performed a capsulotomy with electrocautery. There was a small staples of blood. The femoral neck fracture was immediately visible. A saw was used to create a femoral neck cut 1 thumb breath above the lesser trochanter. A corkscrew was used to remove the femoral head. The femoral head was passed off to the back table, sized and then sent to pathology. A box osteotome was used to gain access to the proximal canal. A canal finder was used enter the canal. I reamed up to a size 12 which generated chatter. I then broached in 1 mm increments up to a size 12 mm broach which felt stable. A calcar planar was used to bring the neck cut down to the level of the stem. I then trialed with a standard offset 43mm head which felt stable. The hip was then gently reduced with the use of a bone hook. The broach was removed. The wound was copiously irrigated. A cement restrictor was placed into the femoral canal. A moistened Ray-Patricia sponge was placed in the acetabulum. Cement was then pressurized into the proximal femur. A size 12 mm stem was then dispensed and gently tapped into place. Once the cement had hardened assess cement and the Ray-Patricia sponge were removed from the wound. I again trialed with a size 43 mm standard offset head which felt stable. The hip was then once again reduced with a bone hook. The final head was then dispensed. The Pena taper was cleaned with a clean lap sponge and the final head was tapped into place. The hip was once again carefully reduced. The wound was then copiously irrigated. All cement fragments were removed. The capsule was closed with interrupted 0 Vicryl sutures. The piriformis was then repaired back to the posterior femur. Using #2 Ethibond a suture was passed to the posterior aspect of the greater trochanter and the piriformis tendon was grasped with a modified Maycol-Mihai stitch. The suture was then passed back through the greater trochanter and tied over a bony bridge nicely reapproximating the piriformis tendon to the proximal femur. The wound was again irrigated. The IT band was closed with a running Quill stitch. The deep subcutaneous fat was closed with interrupted 0 Vicryl stitches. The more superficial subcutaneous tissue was closed using 2-0 Vicryl interrupted stitches. The skin was closed with a running Quill stitch. Dermabond was applied. The drapes were then taken down and a dressing was applied. I verified that all instrument, sponge, and sharp counts were correct. A dressing was applied. The patient was placed in a hip abduction pillow. The patient was then transferred from the operating room table onto a stretcher and brought to PACU having tolerated the procedure well. Postreduction x-rays in PACU showed a cemented hip arthroplasty in place with no proximal fractures or evidence of dislocation. Gael Hernandez PA-C was required as a skilled assistant professor of music for patient positioning, surgical approach, implantation of arthroplasty components, closure of wound, and application of dressing.
--- NOTE | 2017-07-13 18:27 | XR ---
EXAMINATION TYPE: XR Hip Limited LT DATE OF EXAM: 07/13/2017 COMPARISON: 07/13/2017 HISTORY: Postop hip surgery TECHNIQUE: Single view FINDINGS: There is a new left hip prosthesis. Components appear in anatomic position. There is probab ly old left inferior pubic ramus fracture. IMPRESSION: Left hip prosthesis without sign of a complicating process.
[2017-07-13] MEDS ORDERED: hydrALAZINE HCL 20 MG/ML 1 ML VIAL IVP PRN (19:02)
[2017-07-13] MEDS: HYDROmorphone 1 MG/ML 1 ML SYRINGE IVP PRN (19:55)
--- NOTE | 2017-07-13 21:26 | P.HPIM ---
History of Present Illness H&P Date: 07/13/17 Chief Complaint: Weak and tired History of presenting complaint: This is a 87-year-old patient I saw in the preoperative area this morning. Patient's son is at the bedside. Patient lives with her son. Chronic stable medical conditions include hypertension, Parkinson's disease, dementia, osteoporosis. At her baseline uses a walker. According to son patient is able to have maybe 1 or 2 meals a day. Sometimes recognizes her family members. Able to complicate simple things. About 5 days ago patient took a fall and was complaining of pain in the left hip. X-ray in the ER confirmed the subscapular fractures left hip. Patient before that was able to be also steps with a walker. Denies any chest pain or shortness of breath. No active cardiac issue currently. Review of systems: Unable to obtain as patient is a poor historian. Past medical history: Hypertension, Parkinson's, osteoarthritis, dementia, Past surgical history: Tonsillectomy, hip surgeries and nail, pelvis fracture Home medications: Reviewed in the electronic records ALLERGIES: None Social history: No history of smoking or alcohol. Son lives lives with her. Family history: Reviewed, noncontributory to presentation VITAL SIGNS: 97.8, 86, 16, 163/74, 98% on 1 L GENERAL: Average built, laying in bed tired appearing. EYES: Pupils equal. Conjunctiva palel. HEENT: External appearance of nose and ears normal, oral cavity grossly normal. NECK: JVD not raised; masses not palpable. HEART: First and second heart sounds are normal; no edema. LUNGS: Respiratory rate normal; slightly decreased breath sounds. ABDOMEN: Soft, nontender, liver spleen not palpable, no masses palpable. LYMPHATICS: No lymph nodes palpable in the axilla and neck. PSYCH: Causes some simple questions, would affect appears to be normall. NEUROLOGICAL: Cranial nerves grossly intact; no facial asymmetry, power and sensation grossly intact. MUSCULOSKELETAL: Evidence of osteoarthritis in multiple joints . Limited range of motion left hip Investigations: White count 7.9, hemoglobin 11.4 repeat 9.6, potassium 3.7, BNP 21, creatinine 0.40 Troponin 0.117, 0.092, 0.079 EKG EKG-no sinus rhythm some nonspecific T-wave changes Shoulder x-ray shows old impacted comminuted left humeral neck fracture 2-D echo shows inferior basal hypokinesis and septal hypokinesis with preserved LV function Assessment: -Acute left hip supple To fracture secondary to fall -Primary osteoarthritis in multiple joints -Alzheimer's dementia late onset type with advanced -Medical debility multifactorial -Idiopathic Parkinson's disease -Essential hypertension- -Troponin leak probably that'll be due to hemodynamic mismatch, not acute MS Plan: Plan was discussed with the son at the bedside. Did explain to him that because of patient's advanced age and comorbidities patient is a high risk of all competition from surgery. But there are no absolute contraindications and otherwise patient relatively stable to proceed with surgery for the same. He did understand the same. Patient also seen by cardiology. Past Medical History Past Medical History: Dementia, Hypertension, Musculoskeletal Disorder, Neurologic Disorder, Osteoarthritis (OA) Additional Past Medical History / Comment(s): 07/07/2016 Fall with L humerous and pelvic fracture-no surgical intervention, PARKINSONS, constipation. History of Any Multi-Drug Resistant Organisms: ESBL Date of last positivie culture/infection: 06/28/2016 MDRO Source:: ESBL URINE E.COLI Past Surgical History: Tonsillectomy Additional Past Surgical History / Comment(s): hip surgery (nail put in) HIP FRACTURE, PELVIS FRACTURE. Past Anesthesia/Blood Transfusion Reactions: No Reported Reaction Additional Past Anesthesia/Blood Transfusion Reaction / Comment(s): Pt's only surgery was a tonsillectomy-no anesthesia was used. Past Psychological History: No Psychological Hx Reported Additional Psychological History / Comment(s): Pt's adult son resides with her. He assists her with many things. She ambulates with a walker. She has a couple of women that she hired to assist her with bathing. Her son takes her to appts. Smoking Status: Never smoker Past Alcohol Use History: None Reported Past Drug Use History: None Reported - Past Family History Father History Unknown: Yes Additional Family Medical History / Comment(s): Father in his 60's. Mother Family Medical History: Cancer Additional Family Medical History / Comment(s): Mother had breast cancer. She at the age of 79yrs. Medications and Allergies Home Medications Medication Instructions Recorded Confirmed Type Carbidopa-Levodopa 25-100 mg 1 tab PO TID #60 tab 10/08/16 07/12/17 Rx [Sinemet 25-100 mg] amLODIPine [Norvasc] 2.5 mg PO DAILY 10/08/16 07/12/17 History Multivitamins, Thera [Multivitamin 1 tab PO DAILY 02/04/17 07/12/17 History (formulary)] Ibuprofen [Advil] 200 mg PO Q12H PRN 07/12/17 07/12/17 History Nitrofurantoin Monohyd/M-Cryst 100 mg PO BID 07/12/17 07/12/17 History [Macrobid] Potassium 99 mg PO DAILY 07/12/17 07/12/17 History Allergies Allergy/AdvReac Type Severity Reaction Status Date / Time No Known Allergies Allergy Verified 07/12/17 19:00 Results CBC & Chem 7: 07/13/17 06:23 07/13/17 06:23
[2017-07-13] MEDS: SENNOSIDES-DOCUSATE SODIUM 1 EACH TAB PO SCH (21:50)
[2017-07-13] MEDS: ATORVASTATIN 20 MG TAB PO SCH (21:50)
[2017-07-13] MEDS: DEXTROSE 5%-0.45% NACL 1,000 ML IV SCH (22:41)
[2017-07-14] MEDS: ceFAZolin 2 GM in SODIUM CHLORIDE 0.9% 100 ML IVPB SCH ×2 (00:05→08:48)
[2017-07-14] MEDS: HYDROmorphone 1 MG/ML 1 ML SYRINGE IVP PRN ×6 (00:15→20:38)
--- NOTE | 2017-07-14 04:13 | CONS ---
CONSULTATION DATE OF SERVICE: 07/13/2017 REASON FOR CONSULTATION: Urinary tract infection and antibiotic recommendation. HISTORY OF PRESENT ILLNESS: The patient is an 87-year-old, female well known to my service with a previous history of recurrent history urinary tract infection. The patient did have a component of urinary requiring chronic indwelling Blank catheter. The patient has been treated in outpatient setting by the PCP for UTI in the form of Cipro and nitrofurantoin. Apparently, the patient was mentally and the patient remains to be very poor. No nausea no vomiting. The patient also seemed to have a fall. With these symptoms, the patient was evaluated by the ER physician. The patient did have x- rays of the hip, which did show evidence of left hip subcapital fracture. The patient did have a positive UA. She was started on Rocephin and admitted to the hospital and ID was consulted for further recommendation regarding antibiotic therapy. At the time of my evaluation, no family member was available at the bedside; however, orthopedics H&P did mention the patient did have a few falls at home over the last 1 week. Patient complaining of some pain in left hip and unable to elaborate any further. History remains to be limited because of underlying dementia. REVIEW OF SYSTEMS: Could not be reliably obtained other than positives as mentioned in HPI. PAST MEDICAL HISTORY: Significant for hypertension, urinary retention, osteoarthritis, dementia and history of recurrent UTIs. Previous culture positive for ESBL E coli. PAST SURGICAL HISTORY: Tonsillectomy and right hip fracture repair. SOCIAL HISTORY: No history of smoking, drinking, or drug use. FAMILY HISTORY: Mother with history of breast cancer. ALLERGIES: No known drug allergies. MEDICATIONS: Medications currently include the patient is on Norvasc, aspirin, Lipitor, Colace, Lovenox, Rocephin, Dilaudid, Motrin, Lopressor, Narcan, Macrobid and Zofran. PHYSICAL EXAMINATION: On examination, her blood pressure is 151/69 with a pulse of 70, temperature 97.5. She is 97% on 2 L of nasal cannula. General description is an elderly female, lying in bed in no distress. No tachypnea or accessory muscles of respiration use. HEENT examination shows pallor, no scleral icterus. Oral mucous membrane is dry. NECK: Trachea is central. No thyromegaly. LUNGS: Unlabored breathing. Clear to auscultation anteriorly. No wheeze or crackle. HEART: S1, S2. Regular rate and rhythm. ABDOMEN: Soft. No tenderness. No guarding or rigidity. EXTREMITIES: No edema of feet. SKIN EXAMINATION: No rashes or masses palpable. NEUROLOGICALLY: The patient is sleepy but arousable. Responds to her name. Orientation could not be determined. LABS: Hemoglobin 9.6, white count 5.9 with a BUN of 11, creatinine 0.35. Urine has been positive with large leukocyte esterases, 95 WBCs with moderate bacteria. DIAGNOSTIC IMPRESSION AND PLAN: The patient admitted to the hospital with urinary tract infection failing outpatient oral antibiotic therapy in the form of Cipro and Macrobid in a patient who did have previous history of ESBL Escherichia coli pathogen with a question of similar pathogen now with a fall and left hip fracture. PLAN: 1. We will discontinue the Rocephin and nitrofurantoin. 2. Will start the patient on Invanz 1 gram IV piggyback daily. 3. Blank catheter needs to be changed if it has not been changed in the last 2 days and obtain urine culture from new Blank. 4. We will follow up on the clinical condition and culture to further adjust medication if needed. Thank you for this consultation. Will follow this patient along with you. MMODL / IJN: [id number] /
[2017-07-14] MEDS: DEXTROSE 5%-0.45% NACL 1,000 ML IV SCH ×2 (06:07→18:14)
[2017-07-14 07:00] LABS: Basophils % (A) 0 %; CH 28.7; CHCM 31.7; Eosinophils # (A) 0.1 k/uL (0-0.7); Eosinophils % (A) 3 %; HCT 25.9 % (34.0-46.0); HDW 2.82; Hypochromasia Slight; Luc # (Auto) 0.08; Luc % (Auto) 2; Lymphocytes # (A) 0.5 k/uL (1.0-4.8); Lymphocytes % (A) 13 %; MCH 28.4 pg (25.0-35.0); MCHC 31.1 g/dL (31.0-37.0); MCV 91.2 fL (80.0-100.0); Mean Platelet Volume 7.5; Monocytes # (A) 0.3 k/uL (0-1.0); Monocytes % (A) 8 %; Neutrophils # (A) 3.1 k/uL (1.3-7.7); Neutrophils % (A) 75 %; RBC 2.84 m/uL (3.80-5.40); WBC 4.1 k/uL (3.8-10.6); WBC (Perox) 4.14
[2017-07-14 07:02] LABS: INR 1.2 (<1.2); Prothrombin Time 11.7 sec (9.0-12.0)
[2017-07-14 07:18] LABS: HGB 8.1 gm/dL (11.4-16.0)
--- NOTE | 2017-07-14 08:35 | P.PN ---
Subjective Patient is doing well this morning with no acute events overnight. She is complaining of isolated left hip pain. Objective - Vital Signs Vital signs: Vital Signs Temp 98.2 F 07/14/17 07:30 Pulse 93 07/14/17 07:30 Resp 18 07/14/17 07:30 BP 159/72 07/14/17 07:30 Pulse Ox 96 07/14/17 07:30 Intake & Output 07/13/17 07/14/17 07/14/17 18:59 06:59 18:59 Intake Total 1751 0 Output Total 1000 1160 Balance 751 -1160 Weight 49 kg 48.9 kg Intake: IV 1751 Sodium Chloride 0.9% 1, 800 000 ml @ 100 mls/hr IV . Q10H ONE Rx#:[id number] cefTRIAXone 1,000 mg In 50 Sodium Chloride 0.9% 50 ml @ 100 mls/hr IVPB HS MELE Rx#:[id number] Oral 0 Output: Urine 850 1160 Uretheral (Blank) 480 Estimated Blood Loss 150 Other: Voiding Method Indwelling Catheter Indwelling Catheter - Exam The patient is in no apparent distress and is resting in her hospital bed. She is drowsy but arousable. She does not answer questions. On inspection of the lower extremities a hip abduction is in place and her dressing is clean, dry, and intact. Her thigh is soft. She is spontaneously moving her toes. She has a palpable dorsalis pedis pulse. - Labs CBC & Chem 7: 07/14/17 06:12 07/13/17 06:23 Labs: Abnormal Lab Results - Last 24 Hours (Table) 07/14/17 07/14/17 Range/Units 06:12 06:12 RBC 2.84 L (3.80-5.40) m/uL Hgb 8.1 L D (11.4-16.0) gm/dL Hct 25.9 L (34.0-46.0) % Lymphocytes # 0.5 L (1.0-4.8) k/uL INR 1.2 H (<1.2) Microbiology - Last 24 Hours (Table) 07/12/17 19:28 Urine Culture - Final Urine,Catheterized Lindsay albicans 07/12/17 19:28 Blood Culture - Preliminary Blood No Growth after 24 hours Assessment and Plan (1) Closed left hip fracture Status: Acute Plan: Postoperative day #1 status post left hip hemiarthroplasty for displaced femoral neck fracture. #1. Weightbearing as tolerated left lower extremity with posterior hip precautions 6 weeks. #2. DVT prophylaxis with Lovenox 40 mg daily 4 weeks if ok with primary team. #3. 2 doses of postoperative antibiotics #4. Dressing changes per protocol #5. Physical therapy for mobilization out of bed to chair #6. Bone health studies with calcium and vitamin D supplementation #7. Discharge planning
[2017-07-14] MEDS: METOPROLOL TARTRATE 12.5 MG TAB PO SCH ×2 (10:06→20:39)
[2017-07-14] MEDS: DOCUSATE 100 MG CAP PO SCH (10:07)
[2017-07-14] MEDS: amLODIPine 2.5 MG TAB PO SCH (10:07)
[2017-07-14] MEDS: ASPIRIN 81 MG PO SCH (10:07)
[2017-07-14] MEDS: ENOXAPARIN 40 MG/0.4 ML SYRINGE SQ SCH (10:07)
[2017-07-14] MEDS: ERTAPENEM 1 GM in SODIUM CHLORIDE 0.9% 50 ML IVPB SCH (10:13)
[2017-07-14] MEDS: MULTIVITAMINS, THERA 1 EACH TAB PO SCH (13:27)
[2017-07-14] MEDS: MICAFUNGIN 100 MG in SODIUM CHLORIDE 0.9% 100 ML IVPB SCH (13:28)
[2017-07-14] MEDS: CALCIUM CARBONATE 500 MG CHEWABLE PO SCH ×3 (13:32→22:55)
[2017-07-14] MEDS: CHOLECALCIFEROL 1,000 UNIT TAB PO SCH (13:33)
--- NOTE | 2017-07-14 18:00 | P.PN ---
<Mary Forbes - Last Filed: 07/14/17 17:30> Progress Note - Text DATE OF SERVICE: 07/14/2017 PRESENTING COMPLAINT: Weak and tired HISTORY OF PRESENT ILLNESS: 87-year-old female who had a 3 week history of worsening confusion treated by her primary care for UTI started on Cipro and switched to nitrofurantoin symptoms fail to improve. This is what brought her to the emergency department. She fell about 5 days ago and once she arrived to [facility] care she was found to developed exquisite pain in her left hip x-ray revealed subscapular fracture of the hip. Orthopedics was consulted and patient is status post left hip hemiarthroplasty. INTERVAL HISTORY: 07/14/2017: Patient sitting in the chair, son at the bedside she appears pale tired looking. PT and OT, Taking pain meds about every 4 hours, IV antibiotics continued for UTI, has dementia and does recognize some family. Eating about 20 % of her meals right now family encouraging her to eat. No BM since admission. REVIEW OF SYSTEMS: Done for constitutional ,cardiovascular, GI, pulmonary with relevant findings as above. CURRENT MEDICATIONS [place], aspirin, Lipitor, Sinemet, micafungin, Lovenox, Dilaudid, Vistaril, Restoril, Ultram. PHYSICAL EXAM VITAL SIGNS: Temperature 100.6, pulse 89, respirations 18, blood pressure 146/81, oxygen saturation 95% on 2 L. GENERAL APPEARANCE: Sitting up in a chair, not in distress. EYES: Pupils equal. Conjunctiva normal. NECK: JVD not raised. Mass not palpable. RESPIRATORY: Respiratory effort normal. Lungs diminished to auscultation. CARDIOVASCULAR: First and second sounds normal. No edema. ABDOMEN: Soft. Liver and spleen not palpable. No tenderness. No mass palpable. PSYCHIATRY: Alert and oriented x3. Mood and affect normal. MUSCULOSKELETAL: Left hip incision covered with dry dressing no drainage noted tenderness to palpation unable to do straight leg raise. INVESTIGATIONS: Hemoglobin 8.1, INR 1.2, ASSESSMENT: -Acute left displaced femoral neck fracture secondary to fall, status post left hip monika-arthroplasty -Urinary tract infection failed outpatient treatment -Acute blood loss anemia as expected from surgery -Primary osteoarthritis in multiple joints -Alzheimer's dementia late onset type with advanced -Medical debility multifactorial -Idiopathic Parkinson's disease -Essential hypertension- -Troponin leak probably that'll be due to hemodynamic mismatch, not acute DE PLAN: Continue IV antibiotics for UTI pain management per orthopedics, PT and OT, family plan is to take the patient back home and do PT OT from the home. RADIO SURVEY WORKER statement: Patient was seen and examined by nurse practitioner Mary Forbes and all elements of the case discussed with attending Dr. Jason <Kolby Jason - Last Filed: 07/14/17 22:02> Progress Note - Text Attending note. Date of service-07/14/2017 This patient was seen and examined by me . Discussed the patient with my nurse practitioner Ms. Forbes. Status post left femur surgery. Sitting over a chair. Some of the bedside. Eating small amounts. Sometimes and pain. Baseline confused On examination: Lungs-decreased breath sounds, awake, abdomen soft nontender Investigations: Hemoglobin 8.1 Assessment and plan: Status post left femur surgery. Improving slowly. UTI-antibiotics per Dr. Hernández. Care was discussed son at the bedside. prognosis guarded given her age and multiple comorbidities
[2017-07-14] MEDS: ATORVASTATIN 20 MG TAB PO SCH (20:39)
[2017-07-14] MEDS: SENNOSIDES-DOCUSATE SODIUM 1 EACH TAB PO SCH (20:39)
[2017-07-14] MEDS: CARBIDOPA-LEVODOPA 25-100 MG 1 EACH TAB PO SCH (22:50)
[2017-07-14 23:01] LABS: Appearance,Urine Cloudy (Clear); Bilirubin,Urine Negative (Negative); Glucose,Urine (UA) Negative (Negative); Ketones,Urine Negative (Negative); Leukocyte Esterase,Urine Large (Negative); Mucus,Urine Many /hpf; Nitrite,Urine Negative (Negative); Particle Count 17074; Protein,Urine 1+ (Negative); RBC,Urine 13 /hpf (0-5); Specific Gravity,Urine 1.022 (1.001-1.035); UA Billing (MACRO vs. MICRO) MICRO; Urobilinogen,Urine <2.0 mg/dL (<2.0); WBC,Urine 72 /hpf (0-5)
[2017-07-15] MEDS: DEXTROSE 5%-0.45% NACL 1,000 ML IV SCH ×2 (03:06→13:47)
[2017-07-15] MEDS: HYDROmorphone 1 MG/ML 1 ML SYRINGE IVP PRN ×2 (06:33→19:22)
[2017-07-15 07:21] LABS: INR 1.2 (<1.2); Prothrombin Time 12.1 sec (9.0-12.0)
[2017-07-15 07:37] LABS: Anion Gap 6 mmol/L; Blood Urea Nitrogen 10 mg/dL (7-17); Calcium 7.9 mg/dL (8.4-10.2); Carbon Dioxide 23 mmol/L (22-30); Chloride 101 mmol/L (98-107); Glucose 125 mg/dL (74-99); Non-African American GFR(MDRD) >60 (>60 ml/min/1.73 sqM); Potassium 3.1 mmol/L (3.5-5.1); Sodium 130 mmol/L (137-145)
--- NOTE | 2017-07-15 07:39 | PN ---
PROGRESS NOTE DATE OF SERVICE: 07/14/2017. REASON FOR FOLLOWUP VISIT: Catheter associated urinary tract infection. INTERVAL HISTORY: The patient is status post left hip hemiarthroplasty for a displaced left subcapital femur fracture. The patient has tolerated the procedure well. Currently on the surgical floor. She was slightly lethargic at time of my evaluation this morning. Son was present at the beside. Did mention she has been able to take a few bites of food. No nausea, vomiting, has been noticed or any diarrhea. EXAMINATION: Blood pressure 135/67, pulse of 77, temperature 98.1. She is 95% on 2 L nasal cannula. General description is an elderly female up in the chair in no distress. Respiratory system unlabored breathing with decreased breath sounds at the bases. Heart is S1, S2. Regular rate and rhythm. Abdomen soft, no tenderness. LABS: Hemoglobin is 8.1, white count 4.1 with a BUN of 11, creatinine 0.35. Urine cultures showing Lindsay albicans. Blood cultures have been negative. DIAGNOSTIC IMPRESSION AND PLAN: Patient with catheter associated urinary tract infection, urine with Lindsay albicans. Recommend changing the Blank catheter. Obtaining a urine culture . I was unable to order the Diflucan because other medication the patient is on. Hence the patient will be started on Micafungin while waiting for repeat cultures to finalize. Discontinue the Invanz as no gram negative has been grown. Son was present at the bedside. His questions and concerns were answered. MMODL / IJN: [id number] /
[2017-07-15] MEDS: MICAFUNGIN 100 MG in SODIUM CHLORIDE 0.9% 100 ML IVPB SCH (08:08)
--- NOTE | 2017-07-15 09:33 | P.PN ---
Subjective Principal diagnosis: Left hip fracture. Status post left hemiarthroplasty. This 77-year-old female who is status post left hip hemiarthroplasty for a displaced femoral neck fracture. This is postoperative day #2. Patient expresses pain with palpation around the incision. Patient is sleeping comfortably in bed. Patient will not answer questions. Objective - Vital Signs Vital signs: Vital Signs Temp 98.4 F 07/15/17 07:23 Pulse 90 07/15/17 07:23 Resp 20 07/15/17 07:23 BP 120/65 07/15/17 07:23 Pulse Ox 90 L 07/15/17 07:23 Intake & Output 07/14/17 07/15/17 07/15/17 18:59 06:59 18:59 Intake Total 1100 1400 Output Total 960 150 Balance 140 1250 Intake: Intake, IV Titration 900 1100 Amount Dextrose 5%-0.45% NaCl 1, 800 1100 000 ml @ 100 mls/hr IV . Q10H MELE Rx#:[id number] Micafungin 100 mg In 100 Sodium Chloride 0.9% 100 ml @ 100 mls/hr IVPB DAILY MELE Rx#:[id number] Oral 200 300 Output: Urine 960 150 Uretheral (Blank) 960 Other: Voiding Method Indwelling Catheter Indwelling Catheter - Exam On exam patient is in no acute distress. Patient will not answer questions but occasionally opens her eyes. There is pain with palpation around the incision site. Incision is clean, dry and intact. There is no drainage at this time. Compartments are soft. Abductor pillow is in place. Calf is soft. Neurovascular status to the left lower extremity is intact. - Labs CBC & Chem 7: 07/14/17 06:12 07/15/17 06:32 Labs: Abnormal Lab Results - Last 24 Hours (Table) 07/14/17 07/15/17 07/15/17 Range/Units 22:38 06:32 06:32 PT 12.1 H (9.0-12.0) sec INR 1.2 H (<1.2) Sodium 130 L (137-145) mmol/L Potassium 3.1 L (3.5-5.1) mmol/L Creatinine 0.33 L (0.52-1.04) mg/dL Glucose 125 H (74-99) mg/dL Calcium 7.9 L (8.4-10.2) mg/dL Urine Appearance Cloudy H (Clear) Urine Protein 1+ H (Negative) Urine Blood Small H (Negative) Ur Leukocyte Esterase Large H (Negative) Urine RBC 13 H (0-5) /hpf Urine WBC 72 H (0-5) /hpf Urine Mucus Many H (None) /hpf Microbiology - Last 24 Hours (Table) 07/12/17 19:28 Blood Culture - Preliminary Blood No Growth after 48 hours Assessment and Plan (1) Closed left hip fracture Status: Acute (2) Altered mental status Status: Acute (3) UTI (urinary tract infection) Status: Acute (4) Fall Status: Acute Plan: #1 Weightbearing as tolerated to the left lower extremity. #2. Posterior hip precautions 6 weeks. #3. Continue DVT prophylaxis with Lovenox 40 mg daily 4 weeks. #4. Daily dressing changes. #5. Continue physical therapy #6. Discharge to rehab when medically stable.
[2017-07-15] MEDS ORDERED: Acetaminophen-Codeine 300-30mg TAB PO STA (09:46)
[2017-07-15] MEDS: ASPIRIN 81 MG PO SCH (11:02)
[2017-07-15] MEDS: CARBIDOPA-LEVODOPA 25-100 MG 1 EACH TAB PO SCH ×3 (11:02→21:15)
[2017-07-15] MEDS: Acetaminophen-Codeine 300-30mg TAB PO PRN ×3 (11:02→23:35)
[2017-07-15] MEDS: MULTIVITAMINS, THERA 1 EACH TAB PO SCH (11:02)
[2017-07-15] MEDS: amLODIPine 2.5 MG TAB PO SCH (11:02)
[2017-07-15] MEDS: DOCUSATE 100 MG CAP PO SCH (11:03)
[2017-07-15] MEDS: CHOLECALCIFEROL 1,000 UNIT TAB PO SCH (11:03)
[2017-07-15] MEDS: METOPROLOL TARTRATE 12.5 MG TAB PO SCH ×2 (11:03→21:15)
[2017-07-15] MEDS: ENOXAPARIN 40 MG/0.4 ML SYRINGE SQ SCH (11:03)
[2017-07-15] MEDS: CALCIUM CARBONATE 500 MG CHEWABLE PO SCH ×3 (11:03→21:15)
[2017-07-15] MEDS ORDERED: Potassium Replacement Protocol 1 EACH MISC MISCELLANE PRN (13:44)
[2017-07-15] MEDS: SODIUM CHLORIDE 0.9% 1,000 ML IV SCH (14:36)
[2017-07-15] MEDS: POTASSIUM CHLORIDE 10 MEQ, LIDOCAINE 2% INJ 10 MG in SODIUM CHLORIDE 0.9% 100 ML IV SCH ×2 (14:36→16:29)
--- NOTE | 2017-07-15 20:28 | P.PN ---
Progress Note - Text Attending note. Date of service-07/15/2017 This patient was seen and examined by me . Discussed the patient with my nurse practitioner Ms. Forbes. Sitting up on a chair. Quite. Eating small amounts. On examination: Lungs-decreased breath sounds, psych-patient's poor questions Investigations: Sodium 1:30, potassium 3.1 Assessment and plan: Hyponatremia possibly from decrease salt intake. Encourage food intake. Replace potassium. Prognosis guarded
--- NOTE | 2017-07-15 20:44 | P.PN ---
Progress Note - Text DATE OF SERVICE: 07/15/2017 PRESENTING COMPLAINT: Weak and tired HISTORY OF PRESENT ILLNESS: 87-year-old female who had a 3 week history of worsening confusion treated by her primary care for UTI started on Cipro and switched to nitrofurantoin symptoms fail to improve. This is what brought her to the emergency department. She fell about 5 days ago and once she arrived to [facility] she was found to developed exquisite pain in her left hip x-ray revealed subscapular fracture of the hip. Orthopedics was consulted and patient is status post left hip hemiarthroplasty. INTERVAL HISTORY: 07/15/2017: Patient sitting in a recliner at the bedside, appears pale and tired looking. Has dementia recognizes some family is able to answer some simple straightforward questions. Eating about 20% of her meals, family present at mealtime to encourage her. No BM since admission, Dulcolax Senokot Colace all available and being given. 07/14/2017: Patient sitting in the chair, son at the bedside she appears pale tired looking. PT and OT, Taking pain meds about every 4 hours, IV antibiotics continued for UTI, has dementia and does recognize some family. Eating about 20 % of her meals right now family encouraging her to eat. No BM since admission. REVIEW OF SYSTEMS: Done for constitutional ,cardiovascular, GI, pulmonary with relevant findings as above. CURRENT MEDICATIONS [place], aspirin, Lipitor, Sinemet, micafungin, Lovenox, Dilaudid, Vistaril, Restoril, Ultram. PHYSICAL EXAM VITAL SIGNS: Temperature 96.7, pulse 65, respirations 16, blood pressure 115/55, oxygen saturation 95% on room air. GENERAL APPEARANCE: Sitting up in a chair, not in distress. EYES: Pupils equal. Conjunctiva normal. NECK: JVD not raised. Mass not palpable. RESPIRATORY: Respiratory effort normal. Lungs diminished to auscultation. CARDIOVASCULAR: First and second sounds normal. No edema. ABDOMEN: Soft. Liver and spleen not palpable. No tenderness. No mass palpable. PSYCHIATRY: Alert and oriented x3. Mood and affect normal. MUSCULOSKELETAL: Left hip incision covered with dry dressing no drainage noted tenderness to palpation unable to do straight leg raise. 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 Has not yet had a BM, Dulcolax suppository ordered. If no results will consider soapsuds enema. Plan of care was discussed with the patient and family at the bedside and they are in agreement. We will continue to monitor closely. TOMBSTONE SETTER statement: Patient was seen and examined by nurse practitioner Mary Forbes and all elements of the case discussed with attending Dr. Jason
[2017-07-15] MEDS ORDERED: LACTULOSE 20 GM/30 ML CUP PO ONE (20:51)
[2017-07-15] MEDS: ATORVASTATIN 20 MG TAB PO SCH (21:15)
[2017-07-16] MEDS: Acetaminophen-Codeine 300-30mg TAB PO PRN (03:13)
[2017-07-16] MEDS: SENNOSIDES-DOCUSATE SODIUM 1 EACH TAB PO SCH ×2 (03:13→20:56)
[2017-07-16] MEDS: traMADol 50 MG TAB PO PRN ×2 (06:37→16:07)
[2017-07-16 07:01] LABS: Basophils % (A) 0 %; CH 27.5; CHCM 30.5; Eosinophils # (A) 0.2 k/uL (0-0.7); Eosinophils % (A) 4 %; HCT 21.3 % (34.0-46.0); HDW 2.93; Hypochromasia Moderate; Luc # (Auto) 0.21; Luc % (Auto) 4; Lymphocytes # (A) 0.6 k/uL (1.0-4.8); Lymphocytes % (A) 12 %; MCH 29.2 pg (25.0-35.0); MCHC 32.3 g/dL (31.0-37.0); MCV 90.6 fL (80.0-100.0); Mean Platelet Volume 7.2; Monocytes # (A) 0.3 k/uL (0-1.0); Monocytes % (A) 5 %; Neutrophils # (A) 4.2 k/uL (1.3-7.7); Neutrophils % (A) 76 %; RBC 2.35 m/uL (3.80-5.40); RDW 14.7 % (11.5-15.5); WBC 5.5 k/uL (3.8-10.6); WBC (Perox) 5.81
[2017-07-16 07:11] LABS: Anion Gap 6 mmol/L; Blood Urea Nitrogen 11 mg/dL (7-17); Calcium 8.1 mg/dL (8.4-10.2); Carbon Dioxide 24 mmol/L (22-30); Chloride 105 mmol/L (98-107); Glucose 88 mg/dL (74-99); Non-African American GFR(MDRD) >60 (>60 ml/min/1.73 sqM); Potassium 3.6 mmol/L (3.5-5.1); Sodium 135 mmol/L (137-145)
[2017-07-16 07:12] LABS: HGB 6.9 gm/dL (11.4-16.0)
[2017-07-16 07:19] LABS: INR 1.1 (<1.2); Prothrombin Time 10.8 sec (9.0-12.0)
--- NOTE | 2017-07-16 08:31 | P.PN ---
Subjective Principal diagnosis: Left hip fracture. Status post left hemiarthroplasty. This 77-year-old female who is status post left hip hemiarthroplasty for a displaced femoral neck fracture. This is postoperative day #3. Patient is drowsy but will awaken. Patient is sleeping comfortably in bed. Patient will not answer questions. Objective - Vital Signs Vital signs: Vital Signs Temp 98.1 F 07/16/17 05:13 Pulse 81 07/16/17 05:13 Resp 17 07/16/17 05:13 BP 129/76 07/16/17 05:13 Pulse Ox 95 07/16/17 05:13 Intake & Output 07/15/17 07/16/17 07/16/17 18:59 06:59 18:59 Intake Total 700 50 Output Total 1000 Balance 700 -950 Intake: Intake, IV Titration 700 Amount Dextrose 5%-0.45% NaCl 1, 600 000 ml @ 100 mls/hr IV . Q10H MELE Rx#:[id number] Micafungin 100 mg In 100 Sodium Chloride 0.9% 100 ml @ 100 mls/hr IVPB DAILY MELE Rx#:[id number] Oral 50 Output: Urine 1000 Other: Voiding Method Indwelling Catheter - Exam On exam patient is in no acute distress. Patient will not answer questions but occasionally opens her eyes. Incision is clean, dry and intact. There is no drainage at this time. Compartments are soft. Abductor pillow is in place. Calf is soft and nontender. Dorsalis pedis pulses 2+. Patient will wiggle the toes left foot. Neurovascular status to the left lower extremity is intact. - Labs CBC & Chem 7: 07/16/17 06:15 07/16/17 06:15 Labs: Abnormal Lab Results - Last 24 Hours (Table) 07/13/17 07/16/17 07/16/17 Range/Units 15:40 06:15 06:15 RBC 2.35 L (3.80-5.40) m/uL Hgb 6.9 L* (11.4-16.0) gm/dL Hct 21.3 L (34.0-46.0) % Lymphocytes # 0.6 L (1.0-4.8) k/uL Sodium 135 L (137-145) mmol/L Creatinine 0.34 L (0.52-1.04) mg/dL Calcium 8.1 L (8.4-10.2) mg/dL Crossmatch See Detail Microbiology - Last 24 Hours (Table) 07/12/17 19:28 Blood Culture - Preliminary Blood No Growth after 72 hours 07/14/17 22:38 Urine Culture - Preliminary Urine,Catheterized Assessment and Plan (1) Closed left hip fracture Status: Acute (2) Altered mental status Status: Acute (3) UTI (urinary tract infection) Status: Acute (4) Fall Status: Acute Plan: #1. Weightbearing as tolerated to the left lower extremity. #2. Posterior hip precautions 6 weeks. #3. Continue DVT prophylaxis with Lovenox 40 mg daily 4 weeks. #4. Daily dressing changes. #5. Continue physical therapy #6. Discharge to rehab when medically stable.
[2017-07-16] MEDS: CALCIUM CARBONATE 500 MG CHEWABLE PO SCH ×4 (11:07→20:56)
[2017-07-16] MEDS: amLODIPine 2.5 MG TAB PO SCH (11:07)
[2017-07-16] MEDS: DOCUSATE 100 MG CAP PO SCH (11:07)
[2017-07-16] MEDS: CARBIDOPA-LEVODOPA 25-100 MG 1 EACH TAB PO SCH ×3 (11:07→15:54)
[2017-07-16] MEDS: ASPIRIN 81 MG PO SCH (11:07)
[2017-07-16] MEDS: ENOXAPARIN 40 MG/0.4 ML SYRINGE SQ SCH (11:07)
[2017-07-16] MEDS: METOPROLOL TARTRATE 12.5 MG TAB PO SCH ×2 (11:07→20:55)
[2017-07-16] MEDS: MULTIVITAMINS, THERA 1 EACH TAB PO SCH (11:08)
[2017-07-16] MEDS: CHOLECALCIFEROL 1,000 UNIT TAB PO SCH (11:08)
[2017-07-16] MEDS: BISACODYL 10 MG SUPP RECTAL SCH (11:37)
[2017-07-16] MEDS: SODIUM CHLORIDE 0.9% 1,000 ML IV SCH (11:37)
--- NOTE | 2017-07-16 12:46 | PN ---
PROGRESS NOTE DATE OF SERVICE: 07/15/2017 REASON FOR FOLLOWUP VISIT: Catheter associated urinary tract infection. INTERVAL HISTORY: The patient is afebrile. She was noted to be slightly more awake. At time of my evaluation this afternoon was being fed by the caregiver. No nausea. No vomiting. No diarrhea. She was unable to provide any reliable history. On examination, blood pressure is 115/55, pulse 85, temperature 96.7. She is 95% on room air. General Description is an elderly female up in the chair in no distress. RESPIRATORY: Unlabored breathing. Decreased breath sounds at the bases. No wheeze. HEART: S1, S2. Regular rate and rhythm. ABDOMEN: Soft, no tenderness. LABS: White count 4.1 with a BUN of 10 and creatinine 0.33. Repeat UA after change of Blank catheter was positive. DIAGNOSTIC IMPRESSION AND PLAN: Patient with catheter associated urinary tract infection with Lindsay albicans. Unfortunately unable to use Diflucan because of drug interaction with other medication. Currently on micafungin. Blank catheter has been changed. We will await for the patient's culture to finalize. Caregiver present at bedside. Questions were sought and answered. MMODL / IJN: [id number] /
[2017-07-16] MEDS: MICAFUNGIN 100 MG in SODIUM CHLORIDE 0.9% 100 ML IVPB SCH (15:54)
[2017-07-16 16:06] LABS: Basophils % (A) 0 %; CH 29.4; CHCM 33.6; Eosinophils # (A) 0.2 k/uL (0-0.7); Eosinophils % (A) 3 %; HCT 26.7 % (34.0-46.0); HDW 3.47; Luc # (Auto) 0.11; Luc % (Auto) 2; Lymphocytes % (A) 14 %; MCH 29.1 pg (25.0-35.0); MCV 88.1 fL (80.0-100.0); Mean Platelet Volume 7.7; Monocytes # (A) 0.4 k/uL (0-1.0); Monocytes % (A) 5 %; Neutrophils # (A) 5.4 k/uL (1.3-7.7); Neutrophils % (A) 76 %; Poikilocytosis Slight; RBC 3.03 m/uL (3.80-5.40); RDW 14.9 % (11.5-15.5); WBC 7.1 k/uL (3.8-10.6); WBC (Perox) 6.99
[2017-07-16 16:11] LABS: HGB 8.8 gm/dL (11.4-16.0)
[2017-07-16] MEDS: ATORVASTATIN 20 MG TAB PO SCH (20:56)
--- NOTE | 2017-07-16 21:34 | PN ---
PROGRESS NOTE DATE OF SERVICE: 07/16/17 PRESENTING COMPLAINT: Tired. INTERVAL HISTORY: This is a patient status post left hip surgery. Sitting in a chair. Son at the bedside. Patient eating small amount. Also getting treated for UTI from [place]. Being followed by infectious disease Dr. Ortiz. When I walked in the room, patient did ask me how are you. Looking weak and tired. REVIEW OF SYSTEMS: Done for constitutional, cardiovascular, GI, pulmonary, musculoskeletal, relevant findings as above. MEDICATIONS: Current medications reviewed that include IV micafungin. PHYSICAL EXAMINATION: Temp 98, pulse 79, respirations 12, blood pressure 130/74, pulse ox 98% room air. GENERAL APPEARANCE: Propped up in bed, tired appearing. Eyes pupils equal. Conjunctivae normal. Neck JVD not raised. Mass not palpable. Respiratory effort lungs decreased breath sounds. Cardiovascular first and second sounds normal. No edema. ABDOMEN: Soft, nontender. Liver and spleen not palpable. Psychiatry: The patient does answer simple questions. INVESTIGATIONS: White count 5.5, hemoglobin 6.9. Potassium 3.6, sodium 135. ASSESSMENT: 1. Acute left displaced femoral neck fracture secondary to fall status post left hip hemiarthroplasty. 2. Acute urinary tract infection from Lindsay albicans. 3. Acute blood-loss anemia as expected from surgery. 4. Primary osteoarthritis multiple joints. 5. Alzheimer's dementia, late onset type with rather advanced. 6. Medical debility multifactorial. 7. Idiopathic Parkinson disease. 8. Essential hypertension. 9. Troponin leak probably that due to mismatch, not acute myocardial infarction. 10.Hyponatremia likely hypoosmolar from decreased oral intake. PLAN: Patient is medically stable to go back to the ECF. Antifungals to be determined by Dr. Ortiz. Care was discussed with the son at the bedside. The patient will be transfused a unit of blood. MMODL / IJN: [id number] /
[2017-07-17] MEDS: traMADol 50 MG TAB PO PRN ×2 (03:30→11:03)
[2017-07-17] MEDS: METOPROLOL TARTRATE 12.5 MG TAB PO SCH ×2 (07:23→23:06)
[2017-07-17] MEDS: MICAFUNGIN 100 MG in SODIUM CHLORIDE 0.9% 100 ML IVPB SCH (07:23)
[2017-07-17] MEDS: Acetaminophen-Codeine 300-30mg TAB PO PRN ×2 (07:23→13:53)
[2017-07-17] MEDS: CARBIDOPA-LEVODOPA 25-100 MG 1 EACH TAB PO SCH ×3 (07:24→23:08)
[2017-07-17] MEDS: CALCIUM CARBONATE 500 MG CHEWABLE PO SCH ×3 (07:24→23:08)
[2017-07-17] MEDS: ASPIRIN 81 MG PO SCH (07:25)
[2017-07-17] MEDS: amLODIPine 2.5 MG TAB PO SCH (07:25)
[2017-07-17] MEDS: DOCUSATE 100 MG CAP PO SCH (07:26)
[2017-07-17] MEDS: ENOXAPARIN 40 MG/0.4 ML SYRINGE SQ SCH (07:26)
[2017-07-17 07:29] LABS: INR 1.1 (<1.2); Prothrombin Time 10.7 sec (9.0-12.0)
[2017-07-17 07:38] LABS: Anion Gap 5 mmol/L; Blood Urea Nitrogen 10 mg/dL (7-17); Calcium 7.9 mg/dL (8.4-10.2); Carbon Dioxide 26 mmol/L (22-30); Chloride 101 mmol/L (98-107); Glucose 85 mg/dL (74-99); Non-African American GFR(MDRD) >60 (>60 ml/min/1.73 sqM); Potassium 3.8 mmol/L (3.5-5.1); Sodium 132 mmol/L (137-145)
[2017-07-17] MEDS: BISACODYL 10 MG SUPP RECTAL SCH (09:01)
--- NOTE | 2017-07-17 10:00 | P.PN ---
Subjective Principal diagnosis: Left hip fracture. Status post left hemiarthroplasty. This 77-year-old female who is status post left hip hemiarthroplasty for a displaced femoral neck fracture. This is postoperative day #4. Patient is drowsy but will awaken and answer yes or no questions. Patient's family is in the room today and states patient has been complaining about left arm pain. Objective - Vital Signs Vital signs: Vital Signs Temp 97.0 F L 07/17/17 07:00 Pulse 90 07/17/17 07:00 Resp 16 07/17/17 07:00 BP 158/73 07/17/17 07:00 Pulse Ox 96 07/17/17 07:00 Intake & Output 07/16/17 07/17/17 07/17/17 18:59 06:59 18:59 Intake Total 710 800 Output Total 300 300 Balance 410 500 Intake: Intake, IV Titration 400 800 Amount Sodium Chloride 0.9% 1, 400 800 000 ml @ 50 mls/hr IV . Q20H EMLE Rx#:[id number] Blood Product 310 Rc As-1 Unit 310 [id number] Output: Urine 300 300 Other: Voiding Method Indwelling Catheter Indwelling Catheter Indwelling Catheter - Exam On exam patient is in no acute distress. Patient will answer some yes or no questions. Incision is clean, dry and intact. There is no drainage. Compartments are soft. Abductor pillow is in place. Calf is soft and nontender. Dorsalis pedis pulses 2+. Patient will wiggle the toes left foot. Neurovascular status to the left lower extremity is intact. On exam of the left upper extremity there is no tenderness palpation of the left shoulder. There is no swelling, erythema or ecchymosis. There is no tenderness with range of motion of the left shoulder, although patient has limited range of motion. There is some mild tenderness to palpation over the left elbow with swelling to this area and ecchymosis. There is mild tenderness with range of motion of the left elbow. There is no tenderness of the forearm, wrist or hand. Neurovascular status to left upper extremity is intact. - Labs CBC & Chem 7: 07/16/17 15:56 07/17/17 06:44 Labs: Abnormal Lab Results - Last 24 Hours (Table) 07/13/17 07/16/17 07/17/17 Range/Units 15:40 15:56 06:44 RBC 3.03 L (3.80-5.40) m/uL Hgb 8.8 L D (11.4-16.0) gm/dL Hct 26.7 L (34.0-46.0) % Sodium 132 L (137-145) mmol/L Creatinine 0.32 L (0.52-1.04) mg/dL Calcium 7.9 L (8.4-10.2) mg/dL Crossmatch See Detail Microbiology - Last 24 Hours (Table) 07/12/17 19:28 Blood Culture - Preliminary Blood No Growth after 96 hours 07/14/17 22:38 Urine Culture - Final Urine,Catheterized Assessment and Plan (1) Closed left hip fracture Status: Acute (2) Altered mental status Status: Acute (3) UTI (urinary tract infection) Status: Acute (4) Fall Status: Acute Plan: #1. Weightbearing as tolerated to the left lower extremity. #2. Posterior hip precautions 6 weeks. #3. X-ray of the left elbow is pending. #4. Continue DVT prophylaxis with Lovenox 40 mg daily 4 weeks. #5. Daily dressing changes. #6. Continue physical therapy #7. Discharge to rehab today or tomorrow.
[2017-07-17 10:11] VITALS: BMI 21.7
--- NOTE | 2017-07-17 10:41 | PN ---
PROGRESS NOTE DATE OF SERVICE: 07/16/2017. REASON FOR FOLLOW UP: Catheter associated urinary tract infection. INTERVAL HISTORY: The patient is afebrile. She seems to be slightly lethargic today and not eating her food per the son. No nausea or vomiting has been noted or any diarrhea or any worsened pain in left hip. EXAMINATION: Blood pressure 138/75, pulse of 81, temperature 97. She is 96% on 2 L nasal cannula. General description is an elderly female, lying in bed, in no distress. RESPIRATORY SYSTEM: Unlabored breathing. Clear to auscultation anteriorly. Heart S1, S2. Regular rate and rhythm. Abdomen soft. No tenderness. LABS: Hemoglobin is 8.8, white count 7.1, BUN of 11, creatinine 0.34. Repeat urine culture so far negative. DIAGNOSTIC IMPRESSION AND PLAN: Patient with a catheter associated urinary tract infection. The patient urine did show Lindsay albicans. Unfortunately we are unable to use the because of the multiple drug interaction. Currently on Micafungin waiting for repeat urine culture to finalize. Continue supportive care. Son was present at bedside. His questions were answered. MMODL / IJN: [id number] /
[2017-07-17] MEDS: CHOLECALCIFEROL 1,000 UNIT TAB PO SCH (11:03)
[2017-07-17] MEDS: MULTIVITAMINS, THERA 1 EACH TAB PO SCH (11:03)
--- NOTE | 2017-07-17 11:16 | FL ---
EXAMINATION TYPE: FL barium swallow w video DATE OF EXAM: 07/17/2017 COMPARISON: NONE HISTORY: Abnormal bedside evaluation TECHNIQUE: Fluoroscopy. FINDINGS: Fluoroscopic guidance was provided for the procedure performed in conjunction with the hospital [facility] pathology department. Please see complete report forthcoming from the Speech Pathology departmen t. Various consistencies from thin liquid to solids were administered. Fluoroscopy time 2.06 minutes. Number of images: 0. Aspiration with nectar thick liquids was evident. There was questionable penetration with honey thick liquids. No significant pooling was observed in the vallecula. There is marked hesitancy of bolus formation and transfer to the hypopharynx. IMPRESSION: 1. Aspiration with nectar thick liquids.
[2017-07-17] MEDS: SODIUM CHLORIDE 0.9% 1,000 ML IV SCH (13:01)
[2017-07-17] MEDS ORDERED: NA PHOS,M-B/NA PHOS,DI-BA 133 ML ENEMA RECTAL STA (14:14)
[2017-07-17] MEDS: HYDROmorphone 1 MG/ML 1 ML SYRINGE IVP PRN (15:38)
--- NOTE | 2017-07-17 20:50 | PN ---
PROGRESS NOTE DATE OF SERVICE: 07/17/2017. REASON FOR FOLLOW UP: Catheter associated urinary tract infection. INTERVAL HISTORY: The patient is afebrile. She is breathing normally. She is hemodynamically stable. Sleepy at the time of evaluation. No nausea, vomiting, diarrhea. EXAMINATION: Blood pressure is 152/73 with a pulse of 92, temperature 97. He is 96% on 2 L cannula. General description is an elderly female, lying in bed, in no distress. RESPIRATORY SYSTEM: Unlabored breathing. Clear to auscultation anteriorly. The heart is S1, S2. Regular rate and rhythm. Abdomen soft, no tenderness. LABS: BUN of 10, with a creatinine 0.32, repeat urine culture negative. DIAGNOSTIC IMPRESSION AND PLAN: Patient with positive urine culture with Lindsay albicans culture positive for Blank catheter mild urinary tract infection, overall improvement, with change of Blank catheter. With repeated urine cultures negative. No need for antibiotic upon discharge. Plan of care discussed in detail with the caregiver. MMMORRISL / IJN: [id number] /
[2017-07-17] MEDS: SENNOSIDES-DOCUSATE SODIUM 1 EACH TAB PO SCH (23:07)
[2017-07-17] MEDS: ATORVASTATIN 20 MG TAB PO SCH (23:07)
[2017-07-18] MEDS: Acetaminophen-Codeine 300-30mg TAB PO PRN ×4 (05:18→16:10)
[2017-07-18] MEDS: SODIUM CHLORIDE 0.9% 1,000 ML IV SCH (06:32)
[2017-07-18 07:03] LABS: Basophils % (A) 0 %; CH 28.2; CHCM 32.3; Eosinophils # (A) 0.2 k/uL (0-0.7); Eosinophils % (A) 3 %; HCT 26.4 % (34.0-46.0); HDW 3.23; HGB 8.5 gm/dL (11.4-16.0); Hypochromasia Slight; Luc # (Auto) 0.12; Luc % (Auto) 2; Lymphocytes # (A) 0.7 k/uL (1.0-4.8); Lymphocytes % (A) 11 %; MCH 28.4 pg (25.0-35.0); MCHC 32.4 g/dL (31.0-37.0); MCV 87.7 fL (80.0-100.0); Monocytes # (A) 0.4 k/uL (0-1.0); Monocytes % (A) 5 %; Neutrophils # (A) 5.2 k/uL (1.3-7.7); Neutrophils % (A) 79 %; RBC 3.01 m/uL (3.80-5.40); RDW 14.6 % (11.5-15.5); WBC 6.6 k/uL (3.8-10.6); WBC (Perox) 6.75
[2017-07-18 07:08] LABS: INR 1.1 (<1.2)
[2017-07-18] MEDS: BISACODYL 10 MG SUPP RECTAL SCH (07:27)
[2017-07-18] MEDS: amLODIPine 2.5 MG TAB PO SCH (09:33)
[2017-07-18] MEDS: CHOLECALCIFEROL 1,000 UNIT TAB PO SCH (09:35)
[2017-07-18] MEDS: METOPROLOL TARTRATE 12.5 MG TAB PO SCH (09:37)
[2017-07-18] MEDS: CARBIDOPA-LEVODOPA 25-100 MG 1 EACH TAB PO SCH ×2 (09:37→16:10)
[2017-07-18] MEDS: CALCIUM CARBONATE 500 MG CHEWABLE PO SCH ×2 (09:41→16:10)
[2017-07-18] MEDS: ASPIRIN 81 MG PO SCH (09:42)
[2017-07-18] MEDS: DOCUSATE 100 MG CAP PO SCH (09:43)
[2017-07-18] MEDS: ENOXAPARIN 40 MG/0.4 ML SYRINGE SQ SCH (09:43)
--- NOTE | 2017-07-18 10:01 | XR ---
EXAMINATION TYPE: XR elbow complete LT DATE OF EXAM: 07/17/2017 COMPARISON: NONE HISTORY: Pain, fall TECHNIQUE: Three-view left elbow FINDINGS: Structures are osteoporotic. Radius aligns normally with the humerus. Anterior fat pad is n ormal. No elevation of posterior fat pad is evident. No displaced fractures are identified. There may be some degenerative joint changes present. Soft tissues appear normal. Follow-up study can be performed 7-10 days from acute trauma for continued pain. IMPRESSION: 1. No acute osseous abnormality. 2. Osteoporosis
--- NOTE | 2017-07-18 10:17 | P.PN ---
Progress Note - Text DATE OF SERVICE: 07/17/2017 PRESENTING COMPLAINT: Weak and tired HISTORY OF PRESENT ILLNESS: 87-year-old female who had a 3 week history of worsening confusion treated by her primary care for UTI started on Cipro and switched to nitrofurantoin symptoms fail to improve. This is what brought her to the emergency department. She fell about 5 days ago and once she arrived to [facility] she was found to developed exquisite pain in her left hip x-ray revealed subscapular fracture of the hip. Orthopedics was consulted and patient is status post left hip hemiarthroplasty. INTERVAL HISTORY: 07/17/2017: Patient lying in the bed appears pale and tired. Has dementia recognizes some of her family a bit more alert today able to answer simple straightforward questions. Eating between 20 and 40% of her meals, does better with family present. No BM since admission, all cathartics are being given as ordered. Concerns expressed by family regarding discharging patient home, safety issues with son that provides care. Multiple DPOA's making it difficult to get appropriate information. Case management involved and will evaluate for safety of the environment patient to be discharged to. 07/15/2017: Patient sitting in a recliner at the bedside, appears pale and tired looking. Has dementia recognizes some family is able to answer some simple straightforward questions. Eating about 20% of her meals, family present at mealtime to encourage her. No BM since admission, Dulcolax Senokot Colace all available and being given. 07/14/2017: Patient sitting in the chair, son at the bedside she appears pale tired looking. PT and OT, Taking pain meds about every 4 hours, IV antibiotics continued for UTI, has dementia and does recognize some family. Eating about 20 % of her meals right now family encouraging her to eat. No BM since admission. REVIEW OF SYSTEMS: Done for constitutional ,cardiovascular, GI, pulmonary with relevant findings as above. CURRENT MEDICATIONS [place], aspirin, Lipitor, Sinemet, micafungin, Lovenox, Dilaudid, Vistaril, Restoril, Ultram. PHYSICAL EXAM VITAL SIGNS: 98.4, pulse 96, respiratory rate 16, blood pressure 159/75, oxygen saturation 95 % on 2 L. GENERAL APPEARANCE: Lying in bed, not in distress. EYES: Pupils equal. Conjunctiva normal. NECK: JVD not raised. Mass not palpable. RESPIRATORY: Respiratory effort normal. Lungs diminished to auscultation. CARDIOVASCULAR: First and second sounds normal. No edema. ABDOMEN: Soft. Liver and spleen not palpable. No tenderness. No mass palpable. PSYCHIATRY: Alert and oriented x3. Mood and affect normal. MUSCULOSKELETAL: Left hip incision covered with dry dressing no drainage noted tenderness to palpation unable to do straight leg raise. INVESTIGATIONS: INR 1.1, sodium 132, creatinine 0.32 ASSESSMENT: -Acute left displaced femoral neck fracture secondary to fall, status post left hip monika-arthroplasty -Urinary tract infection failed outpatient treatment -Acute blood loss anemia as expected from surgery -Primary osteoarthritis in multiple joints -Alzheimer's dementia late onset type with advanced -Medical debility multifactorial -Idiopathic Parkinson's disease -Essential hypertension- -Troponin leak probably that'll be due to hemodynamic mismatch, not acute PR -Hyponatremia likely due to decreased intake PLAN: No antibiotics necessary for discharge for UTI as patient's symptoms appear to have improved. Pain management per orthopedics, PT and OT, Has not yet had a BM, Dulcolax suppository ordered and fleets enema. If no results will consider soapsuds enema. Discharge plan originally for patient to return home however discovered that there are safety and family/social issues, social work involved , [facility] has been notified regarding these issues and will be in to see the patient tomorrow. We will continue to monitor closely. JUMPBASTING CANVAS BASTER statement: Patient was seen and examined by nurse practitioner Mary Forbes and all elements of the case discussed with attending Dr. Jason
--- NOTE | 2017-07-18 11:23 | PN ---
PROGRESS NOTE DATE OF SERVICE: 07/18/2017. REASON FOR FOLLOWUP: Catheter-associated urinary tract infection. INTERVAL HISTORY: The patient is afebrile. She seems to be more awake, alert. She is up in the chair. Did have a nice smile on her face; however, she was unable to provide a reliable history as per her symptomatology was concerned. No family member available at the bedside. PHYSICAL EXAMINATION: Blood pressure 146/78, pulse of 85, temperature of 98.4, she 96% on 2 L nasal cannula. General description is an elderly female, up in the chair in no distress. RESPIRATORY SYSTEM: Unlabored breathing, clear to auscultation anteriorly. HEART: S1, S2. Regular rate and rhythm. ABDOMEN: Soft, no tenderness. LABS: Hemoglobin 8.5, white count is 6.6 with a BUN of 10, creatinine 0.32. Repeat urine culture negative. DIAGNOSTIC IMPRESSION AND PLAN: Patient admitted to the hospital with a significantly positive UA from a Blank that has been changed with repeat urine culture for negative. No need for any further antibiotic or any form of therapy at this point. Going to monitor closely off antibiotic. Continue supportive care. MMODL / IJN: [id number] /
[2017-07-18] MEDS: MULTIVITAMINS, THERA 1 EACH TAB PO SCH (12:58)
[2017-07-18 14:25] VITALS: BP 145/83; PULSE 84; RESP 16; TEMP 97.7
--- NOTE | 2017-07-18 16:04 | P.PN ---
<Mary Forbes - Last Filed: 07/18/17 15:57> Progress Note - Text DATE OF SERVICE: 07/18/2017 PRESENTING COMPLAINT: Weak and tired HISTORY OF PRESENT ILLNESS: 87-year-old female who had a 3 week history of worsening confusion treated by her primary care for UTI started on Cipro and switched to nitrofurantoin symptoms fail to improve. This is what brought her to the emergency department. She fell about 5 days ago and once she arrived to [facility] she was found to developed exquisite pain in her left hip x-ray revealed subscapular fracture of the hip. Orthopedics was consulted and patient is status post left hip hemiarthroplasty. INTERVAL HISTORY: 07/18/2017: Patient sitting in the recliner appears pale and tired is currently sleeping. Has dementia recognizes her family, not quite as alert today able to answer simple straightforward questions. Eating between 20 and 40% of her meals. Last BM 07/18/2017, 07/17/2017: Patient lying in the bed appears pale and tired. Has dementia recognizes some of her family a bit more alert today able to answer simple straightforward questions. Eating between 20 and 40% of her meals, does better with family present. No BM since admission, all cathartics are being given as ordered. Concerns expressed by family regarding discharging patient home, safety issues with son that provides care. Multiple DPOA's making it difficult to get appropriate information. Case management involved and will evaluate for safety of the environment patient to be discharged to. 07/15/2017: Patient sitting in a recliner at the bedside, appears pale and tired looking. Has dementia recognizes some family is able to answer some simple straightforward questions. Eating about 20% of her meals, family present at mealtime to encourage her. No BM since admission, Dulcolax Senokot Colace all available and being given. 07/14/2017: Patient sitting in the chair, son at the bedside she appears pale tired looking. PT and OT, Taking pain meds about every 4 hours, IV antibiotics continued for UTI, has dementia and does recognize some family. Eating about 20 % of her meals right now family encouraging her to eat. No BM since admission. REVIEW OF SYSTEMS: Done for constitutional ,cardiovascular, GI, pulmonary with relevant findings as above. CURRENT MEDICATIONS [place], aspirin, Lipitor, Sinemet, micafungin, Lovenox, Dilaudid, Vistaril, Restoril, Ultram. PHYSICAL EXAM VITAL SIGNS: Temperature 98.4, pulse 85, respirations 20, blood pressure 146/78, oxygen saturation 96% on 2 L. GENERAL APPEARANCE: Sitting in the recliner, granddaughter at the bedside not in distress. EYES: Pupils equal. Conjunctiva normal. NECK: JVD not raised. Mass not palpable. RESPIRATORY: Respiratory effort normal. Lungs diminished to auscultation. CARDIOVASCULAR: First and second sounds normal. No edema. ABDOMEN: Soft. Liver and spleen not palpable. No tenderness. No mass palpable. PSYCHIATRY: Alert and oriented x3. Mood and affect normal. MUSCULOSKELETAL: Left hip incision covered with dry dressing no drainage noted tenderness to palpation unable to do straight leg raise. 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 Pain management per orthopedics, PT and OT continues, will await for social work to let us know where patient to be discharged to. We will continue to monitor closely. UNIFIED COMMUNICATIONS ENGINEER statement: Patient was seen and examined by nurse practitioner Mary Forbes and all elements of the case discussed with attending Dr. Jason <Kolby Jason - Last Filed: 07/19/17 12:50> Progress Note - Text Attending note. Date of service-07/18/2017 This patient was seen and examined by me . Discussed the patient with my nurse practitioner Ms. Forbes. Sitting up in a chair. Tired-appearing. Speaks a few words. Eating small amounts.. On examination: Proper up in chair, tired appearing. Lungs decreased breath sounds. Answering simple questions Investigations: White count 6.6 Assessment and plan: Patient be discharged home. Had a family member at the bedside. Did discuss at length overall picture. Overall prognosis guarded patient is rather frail and frail. Do not expect patient's quality of life to improve significantly. traffic worker involved in discharge planning
--- NOTE | 2017-07-18 16:24 | P.PN ---
Subjective Principal diagnosis: Status post left hip hemiarthroplasty for left hip fracture Patient is a pleasant 87-year-old female seen at bedside this morning. She had a left hip hemiarthroplasty performed by Dr. Simmons on 07/13/2017 for left hip fracture. She has pain at the surgical site which is controlled with oral pain medication. She denies any new complaints. She is denying numbness, tingling, calf pain, fever, chills, chest pain or shortness breath. Objective - Vital Signs Vital signs: Vital Signs Temp 97.7 F 07/18/17 14:24 Pulse 84 07/18/17 14:24 Resp 16 07/18/17 14:24 BP 145/83 07/18/17 14:24 Pulse Ox 92 L 07/18/17 14:24 Intake & Output 07/17/17 07/18/17 07/18/17 18:59 06:59 18:59 Intake Total 120 Output Total 1000 200 Balance -1000 -200 120 Weight 48.9 kg 49 kg Intake: Oral 120 Output: Urine 1000 200 Uretheral (Blank) 800 Other: Voiding Method Indwelling Catheter Indwelling Catheter Indwelling Catheter # Bowel Movements 1 - Exam Inspection left lower extremity shows benign surgical wound. There is no active bleeding or drainage. She has neurovascular status intact with motor and sensation throughout the left lower extremity. Calf is soft and nontender. There is 2+ dorsalis pedis pulse was 2 second cap refill. - Constitutional General appearance: Present: no acute distress - Psychiatric Psychiatric: Present: A&O x's 3, appropriate affect, intact judgment & insight - Labs CBC & Chem 7: 07/18/17 06:32 07/17/17 06:44 Labs: Abnormal Lab Results - Last 24 Hours (Table) 07/18/17 Range/Units 06:32 RBC 3.01 L (3.80-5.40) m/uL Hgb 8.5 L (11.4-16.0) gm/dL Hct 26.4 L (34.0-46.0) % Lymphocytes # 0.7 L (1.0-4.8) k/uL Microbiology - Last 24 Hours (Table) 07/12/17 19:28 Blood Culture - Preliminary Blood No Growth after 120 hours Assessment and Plan (1) Closed left hip fracture Narrative/Plan: She'll continue with routine postop orthopedic protocol including pain management, wound care, physical therapy, DVT prophylaxis and medical management. She may be discharged to ECF when okay with internal medicine. Status: Acute Time with Patient: Less than 30
--- NOTE | 2017-07-20 08:17 | CDI ---
In responding to this query, please exercise your independent professional judgment. The [employer] [employer] Coding Staff and Clinical Documentation Specialists appreciate your assistance in clarifying documentation, maintaining compliance with coding guidelines, accurately documenting patients condition and capturing severity of illness. The fact that a question is asked does not imply that any particular answer is desired or expected. Communication forms are a method of clarifying documentation and are not made part of the Legal Health Record. Thank you in advance for your clarification. Last Revision, January 2016 [facility] [address] [facility] [place] [address] Documentation Clarification Form Date: 07/20/2017 8:00:00 AM From: Kristie Frankel Admit Date: 07/12/2017 8:37:00 PM Patient Name: Destiny Dubois Visit Number: [id number] Discharge Date: 07/18/17 Dr. Kolby Jason Altered mental status was documented in the ED, 07/13 consults and 07/14 PN. Patient history/risk factors: UTI, urinary catheter due to urinary retention, hx of recurrent resistant UTI's Clinical Indicators: UTI Labs: WBC 7.9, Neutrophils 6.5, lactic acid 1.2, Sodium 133, BUN [address]: Cerebral atrophy and chronic small vessel ischemia, no change compared to old exam. Treatment: In your professional opinion, please clarify the etiology of the altered mental status, if known. Delirium (specify cause): Dementia (if know, specify Type and if with/without Behavioral Disturbance) Encephalopathy (specify Type and Underlying Medical Illness) Other condition (please specify) Unable to determine Please document in your discharge summary in order to capture severity of illness and risk of mortality. FYI: Press F11 to launch patient chart. If you have a question about this query, please contact Rosa Maria Iqbal, Automobile Body Repair Chief, [facility] at [phone] between 8am and 5pm. no change in final diagnosis MTDD
--- NOTE | 2017-07-20 11:24 | DS ---
DISCHARGE SUMMARY DATE OF ADMISSION: 07/11/2017 DATE OF DISCHARGE: 07/18/2017 FINAL DIAGNOSIS: 1. Acute left hip fracture secondary to fall. 2. Primary osteoarthritis multiple joints, bilateral. 3. Alzheimer's dementia late onset type, advanced. 4. Medical debility, multifactorial. 5. Idiopathic Parkinson's disease. 6. Essential hypertension. 7. Troponin leak probably due to hemodynamic mismatch, not acute myocardial infarction. 8. Hyponatremia likely hypoosmolar due to decreased oral intake. 9. Acute blood-loss anemia as expected from surgery. 10.Urinary tract infection, having failed outpatient treatment. PROCEDURE: Left hip hemiarthroplasty. CONSULTATION: 1. Dr. Simmons from Orthopedics. 2. Dr. Ortiz from Infectious Disease. HOSPITAL COURSE: This patient is rather debilitated, dementia, took a fall 5 days prior to coming in. Had the above surgery carried out. The patient eating small amounts. Treated for a UTI, did complete a course of antibiotics. Patient extremely frail and fragile, eating small amounts. Prognosis is guarded. Patient had several members come and visit her. mental health worker was involved in discharge planning. PHYSICAL EXAMINATION: LUNGS: Decreased breath sounds. CARDIOVASCULAR: First and second sounds. Patient able answer simple questions. Patient did complete a course of antibiotics. DISCHARGE MEDICATIONS: 1. Norvasc 2.5 mg p.o. daily. 2. Multivitamin 1 tablet p.o. daily. 3. Advil 200 mg p.o. q.12 p.r.n. 4. Sinemet 25/100 one tablet p.o. t.i.d. 5. Tylenol No. 3 one tablet q.4 p.r.n. 6. Aspirin 81 mg p.o. daily. 7. Lipitor 20 mg q.h.s. 8. TUMS 500 mg p.o. t.i.d. 9. Vitamin D3 two thousand units p.o. daily. 10.Lovenox 40 mg subcutaneous daily for 30 days. 11.Lopressor 12.5 p.o. b.i.d. 12.Senokot-S 2 tablets p.o. q.h.s. DISPOSITION: Home with family. Follow with Dr. Vaughan on 07/24/2017, Dr. Simmons 07/26/2017. Hip care per Surgery. Discussion for discharge planning more than 35 minutes. MMODL / IJN: [id number] /
== END 2017-07-18 16:45 | DRG 470 ==
LOC: EC 18:45 → 6SEL 20:37 → 3SUR 07-13 17:35
PROVIDERS: ADMIT Hospitalist; ATTEND Hospitalist
PROC: 0SRS019 Replacement of Left Hip Joint, Femoral Surface with Metal Synthetic Substitute, Cemented, Open Approach (ICD-10-PCS; principal; 2017-07-13 10:20)
PROC: 30233N1 Transfusion of Nonautologous Red Blood Cells into Peripheral Vein, Percutaneous Approach (ICD-10-PCS; 2017-07-16)
DX: S72.012A Unspecified intracapsular fracture of left femur, initial encounter for closed fracture (principal); E87.1 Hypo-osmolality and hyponatremia; B37.49 Other urogenital candidiasis; D62 Acute posthemorrhagic anemia; E86.0 Dehydration; G30.1 Alzheimer's disease with late onset; G20 Parkinson's disease; F02.80 Dementia in other diseases classified elsewhere, unspecified severity, without behavioral disturbance, psychotic disturbance, mood disturbance, and anxiety; Z66 Do not resuscitate; I10 Essential (primary) hypertension; M81.0 Age-related osteoporosis without current pathological fracture; M19.91 Primary osteoarthritis, unspecified site; R33.9 Retention of urine, unspecified; R29.6 Repeated falls; Z79.899 Other long term (current) drug therapy; Z91.81 History of falling; Z87.440 Personal history of urinary (tract) infections; W19.XXXA Unspecified fall, initial encounter; Y92.009 Unspecified place in unspecified non-institutional (private) residence as the place of occurrence of the external cause
CPT/HCPCS: 36415; 70450; 71020; 73501; 73502; 74230; 80048; 80053; 81001; 82550; 82553; 83605; 84484; 85025; 85610; 85730; 86850; 86900; 86901; 86920; 87040; 87086; 88305; 88311; 93005; 93306; 94760; 96361; 96365; 99285